=== PATIENT | female | born 1995 | race African-American/Black ===

== ENCOUNTER 2017-01-30 07:33 | Inpatient (IN) ==
[2017-01-30] MEDS ORDERED: SODIUM CHLORIDE 0.9% 1,000 ML IV STA ×2 (07:53→09:28)
--- NOTE | 2017-01-30 08:13 | Emergency Department Note ---
Kelsey Hayward Gwan, am scribing for, and in the presence of, Armaan Santiago MD 08:02 . Pamela Hayward James D, MD, personally performed the services described in this documentation, ascribed by Suri Cole in my presence, and it is both accurate and complete 805 . Arrival - Arrival Stated Complaint: n/v - diabetic Mode of Arrival: Ambulatory Limitations: No Limitations Source: Patient, Family (Mother ), Old Records Reviewed, RN Notes Reviewed - History of Present Illness HPI Narrative: Patient is a 21 y/o female who present to the ED with a c/o N/V with an onset 2030 yesterday. Patient has a PMHx of IDDM and previous DKA. She confirmed her DKA was when she was diagnosed and that her LNMP was last week. She is followed by Dr. Short and Dr. Cleaning at [facility] in [place]. She check her BS 3x a day and her most recent reading was 140. She then noted that she has not been compliant with her DM dietary plan. Patient denies any dysuria. Consistency: constant Severity: moderate Allergies/Adverse Reactions: Allergies Allergy/AdvReac Type Severity Reaction Status Date / Time Shellfish Allergy Swelling Verified 10/01/15 15:11 of Lip/Tongue/Throat pinapple Allergy Swelling Uncoded 10/01/15 15:11 of Lip/Tongue/Throat Home Medications: Home Medications Medication Instructions Recorded Confirmed Type Insulin Aspart [NovoLOG] 0 unit SUBCUT .PUMP 01/30/17 01/30/17 History Review of System - Review of System 12 point system: reviewed and no additional remarkable complaints except as stated - Review of System Constitutional: Absent: chills, fever Eyes: Absent: discharge, pain Head/Ears/Nose/Throat: Absent: earache Respiratory: Absent: cough Cardiovascular: Absent: chest pain Gastrointestinal: Present: as per HPI, nausea Genitourinary female: Absent: dysuria Musculoskeletal: Absent: arm pain, back pain, lower back pain, leg pain Skin: Absent: rash, lesions Medical,Surgical,& Family Hx - Medical History Neurology: History of: Seizures (HX AT AGE 7 YEARS MEVER PUT ON MEDS) Endocrine: History of: Diabetes Mellitus (IDDM), Endocrine Problems (previous DKA) Comment Only: Thyroid Disorder (PARATHYROID) Reproductive: Comment Only: Reproductive Problems (LMP 12/2015) - Family History Family History: Reports;: Family Cancer (UNCLES), Family Diabetes (DAD), Family Heart Disease (GRANDMOTHER), Family Hypertension (MOM) - Social History Smoking Status: Never smoker Exam Physical Examination: GENERAL: This is a lethargic black female in no apparent distress. VITAL SIGNS: HEENT: Head is normocephalic and atraumatic. Pupils are equally round and reactive to light. Extraocular movement are intact. Oropharynx is benign with dry mucous membranes. NECK: Neck is soft and supple without tenderness. There are no masses. There is no lymphadenopathy. LUNGS: Lungs are clear to auscultation bilaterally. Chest rises symmetrically. There is no chest wall tenderness. CV: Heart is rapid heart rate and rhythm without murmurs, rubs, or gallops. ABDOMEN: Abdomen is soft, non-tender to palpation. There are no abnormal masses palpated. There is no organomegaly. Bowel sounds are present and active. SKIN: Skin is warm and dry. No rash. EXTREMITIES: Patient has full range of motion without tenderness. There is no pedal edema. NEUROLOGIC: Awake, alert, and oriented x4. Cranial nerves II through XII are grossly intact. There are no motorsensory deficits. PSYCHIATRIC: Normal affect. Normal mood. Vital Signs: Vital Signs Temperature 98.2 F 01/30/17 07:58 Pulse Rate 116 H 01/30/17 09:43 Respiratory Rate 31 H 01/30/17 09:43 Blood Pressure 135/80 01/30/17 09:43 O2 Sat by Pulse Oximetry 100 01/30/17 09:43 Results - Labs CBC & BMP: 01/30/17 07:55 01/30/17 07:55 Lab Results: I have reviewed the patients labs Labs: Laboratory Tests 01/30/17 07:55 WBC 23.8 H RBC 5.57 H Hgb 15.4 Hct 49.6 H MCHC 31.0 L Plt Count 446 H Neut % (Auto) 80.4 H Lymph % (Auto) 11.2 L Neut # (Auto) 19.2 H b-Hydroxybutyric mmol/L 5.3 H Laboratory Tests 01/30/17 01/30/17 07:55 08:18 ABG pH 7.021 L* D ABG pCO2 8.1 L* ABG pO2 127.0 H ABG HCO3 5.8 L ABG Total CO2 2.0 L ABG O2 Saturation 97.3 ABG Base Excess -29.8 L b-Hydroxybutyric mmol/L 5.3 H - Diagnostic Findings Procedure: Chest x-ray: image reviewed by me (No infiltrates, no pleural effusions.) Disposition Clinical Impression: Type 1 diabetes mellitus with recurrent ketoacidosis Case discussed with: patient Disposition: Still a Patient Condition: Stable Time of Disposition: 08:05
[2017-01-30] MEDS ORDERED: ONDANSETRON 4 MG/2 ML VIAL IV STA (08:16)
[2017-01-30] MEDS ORDERED: ONDANSETRON 4 MG/2 ML VIAL ONE (08:18)
[2017-01-30 08:26] LABS: Basophils # 0.2 10*3/uL (0.0-0.2); Basophils % 0.6 % (0.0-0.8); Hematocrit 49.6 VOL% (35.7-47.0); Hemoglobin 15.4 GM/DL (12.0-16.0); Immature Granulocytes % 4.3 %; Immature Granulocytes Absolute 1.02 #; Lymphocytes # 2.7 10*3/uL (1.4-4.0); Lymphocytes % 11.2 % (21.3-54.2); Mean Corpuscular Hemoglobin 28 PG (27-34); Mean Platelet Volume 11.1 FL (9.6-12.0); Monocytes # 0.8 10*3/uL (0.11-0.8); Monocytes % 3.5 % (1.7-12.7); Neutrophils # 19.2 10*3/uL (1.4-7.4); Neutrophils % 80.4 % (38.7-73.9); Platelet Count 446 T/CUMM (130-400); Red Blood Count 5.57 MC/CUMM (3.8-5.5); Red Cell Distribution Width 13.4 % (9.3-17.3); White Blood Count 23.8 T/CUMM (4-12)
[2017-01-30 08:47] LABS: Hypochromasia 1+; Lymphocytes 14 % (20-55); Metamyelocytes 2 %; Platelet Estimate Increased; Segmented Neutrophils 81 % (50-85); Total Cells Counted 100
[2017-01-30 09:20] LABS: ABG Base Excess -29.8 MMOL/L (-2.5-2.5); ABG HCO3 5.8 MMOL/L (20-26); ABG Oxygen Saturation 97.3 % (95-100)
[2017-01-30 09:30] LABS: ABG PCO2 8.1 MM HG (35-48); ABG PH 7.021 (7.35-7.45)
--- NOTE | 2017-01-30 09:38 | EKG Report ---
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
--- NOTE | 2017-01-30 09:40 | XRay Report ---
Exam: XR chest 2V Date: 01/30/2017 9:08 AM Indication: Chest pain shortness of breath Comparison: 10/01/2015 Technical: PA lateral Findings: The heart, lungs, mediastinum and bony structures are intact. Impression: 1. No acute cardiopulmonary pathology. PROCEDURE INTERPRETED AT [facility] DEPARTMENT OF RADIOLOGY Final Report Signed by: Dr. Romeo Tinoco
[2017-01-30 09:49] LABS: Albumin 4.5 G/DL (3.4-5.0); Bilirubin,Total 0.4 MG/DL (0.2-1.0); Calcium 12.1 MG/DL (8.5-10.1); Magnesium 2.6 MG/DL (1.8-2.4); Osmolality,Calculated 293.1 MOS/KG (273-304); Total Protein 9.8 G/DL (6.4-8.3)
[2017-01-30 09:52] LABS: Potassium 6.4 MMOL/L (3.5-5.1)
[2017-01-30] MEDS ORDERED: MAGNESIUM SULF RIDER 2 GM in PREMIX 1 EACH IV PRN (10:00)
[2017-01-30] MEDS ORDERED: SODIUM BICARB INJ 100 MEQ in STERILE WATER INJ 400 ML IV PRN (10:00)
[2017-01-30] MEDS ORDERED: INSULIN REGULAR 100 UNIT/ML IV ONE (10:00)
[2017-01-30] MEDS ORDERED: MAGNESIUM SULF RIDER 4 GM in PREMIX 1 EACH IV PRN (10:00)
[2017-01-30] MEDS ORDERED: DEXTROSE 50% 25 GM/50 ML VIAL IV PRN ×2 (10:00)
[2017-01-30] MEDS ORDERED: SODIUM CHLORIDE 0.9% 1,000 ML IV ONE (10:00)
[2017-01-30] MEDS ORDERED: SODIUM PHOSPHATE INJ 13.3 MMOL in SODIUM CHLORIDE 0.9% 250 ML IV PRN (10:00)
[2017-01-30 10:02] LABS: Apearance,Urine Slightly Hazy (Clear); Bilirubin,Urine Negative (Negative); Blood, Urine Small mg/dL (Negative); Glucose,Urine (UA) >=500 mg/dL (Negative); Ketones,Urine 80 mg/dL (Negative); Nitrite,Urine Negative (Negative); Protein,Urine 30 MG/DL; RBC,Urine 1 /HPF (0-4); Squamous Epithelial Cell,Urine Occasional /HPF (0-10); Urine Color Straw (Yellow); Urine Specific Gravity 1.012 (1.001-1.035); Urine Urobilinogen < 2.0 EU/DL (0.2-1.0); WBC,Urine 3 /HPF (0-6)
[2017-01-30] MEDS ORDERED: SODIUM POLYSTYRENE SULFATE 15 GM/60 ML BOTTLE PO STA (10:03)
[2017-01-30] MEDS ORDERED: CALCIUM GLUCONATE 2,000 MG in SODIUM CHLORIDE 0.9% 100 ML IV ONE (10:03)
--- NOTE | 2017-01-30 10:47 | Hospitalist History & Physical ---
Assessment and Plan - Time spent with patient Time spent with patient: Greater than 30 minutes (1) Type 1 diabetes mellitus with recurrent ketoacidosis Status: Acute Assessment and plan: This is recurrent ketoacidosis. Patient's pH is 7.021, glucose 504, b- hydroxybutyric level 5.4. She has been admitted to the ICU for further evaluation and treatment. She is given 2 L of fluid in the ER. We will give her 8 units of insulin bolus. 2 more liters of normal saline and start insulin drip. We will continue to monitor the patient Current Visit: Yes (2) Hyperkalemia Status: Acute Assessment and plan: Potassium 6.4 on admission. In addition to insulin, give IV calcium gluconate 2 g and Kayexalate 30 mg. Recheck BMP Current Visit: Yes History of Present Illness Chief complaint: DKA History of present illness: Ms. Otero is a 21 year old female with history of IDDM and a previous episode of DKA presents to the ED with symptomatic diabetic ketoacidosis with onset of 2030 last night. The patient is followed by endocrinology in [facility]. She she knows that she was diagnosed with type 1 diabetes and 13 years old. She does have an insulin pump and monitors her blood sugar levels 3 times a day. Patient stated that her last known blood sugar was 140, which is low for her. Last night, she notes that she was extremely nauseated, vomiting and had diarrhea. She and her mother believed that the symptoms may be related to something she had eaten as the patient admits that she has not been compliant with her diabetic diet. Her mother gave her some Sprite to drink thinking that it would settle her stomach. This morning, the patient continued to have emesis. It was at that time that her mother decided to bring her to the emergency room. On exam, the patient was tachycardic, tachypneic, nauseous , cold and only complained of chest pain. She was given IV Zofran and 2 L of normal saline in the ER. Chest x-ray was unremarkable. EKG shows sinus tach with short UT interval. Preliminary lab work reveals white count of 23.8, pH 7.021, PCO2 8.1, PLT 127.0, HCO3 5.8, sodium 135, potassium 6.4, glucose 504, urine ketones 80. The patient will be admitted to ICU for further evaluation and treatment. She is a full code. Case has been discussed with Dr. Raymond. Home Medications Medication Instructions Recorded Confirmed Type Insulin Aspart [NovoLOG] 0 unit SUBCUT .PUMP 01/30/17 01/30/17 History Allergies Allergy/AdvReac Type Severity Reaction Status Date / Time Shellfish Allergy Swelling Verified 10/01/15 15:11 of Lip/Tongue/Throat pinapple Allergy Swelling Uncoded 10/01/15 15:11 of Lip/Tongue/Throat Medical,Surgical,& Family Hx - Medical History Neurology: History of: Seizures (HX AT AGE 7 YEARS MEVER PUT ON MEDS) Endocrine: History of: Diabetes Mellitus (IDDM), Endocrine Problems (previous DKA) Comment Only: Thyroid Disorder (PARATHYROID) Reproductive: Comment Only: Reproductive Problems (LMP 12/2015) - Family History Family History: Reports;: Family Cancer (UNCLES), Family Diabetes (DAD), Family Heart Disease (GRANDMOTHER), Family Hypertension (MOM) - Social History Smoking Status: Never smoker Frequency of Alcohol Use: None Type of Drug Use: None Marital Status: Single Lives With:: Parent Functional capacity: independent ambulation - Constitutional Constitutional: Present: chills, fatigue, weakness. Absent: fever(s) - EENT Eyes: Absent: blurry vision, loss of vision Ears: Absent: decreased hearing, ear pain Nose, mouth and throat: Absent: headache(s), neck pain, sore throat - Cardiovascular Cardiovascular: Present: chest pain at rest. Absent: dyspnea, edema, lightheadedness - Respiratory Respiratory: Present: other (Tachypnea). Absent: cough, wheezing - Gastrointestinal Gastrointestinal: Present: diarrhea, nausea, vomiting. Absent: abdominal pain - Genitourinary Genitourinary: Absent: difficulty urinating, dysuria, flank pain - Musculoskeletal Musculoskeletal: Absent: back pain, myalgias - Psychiatric Psychiatric: Absent: anxiety, depression - Endocrine Endocrine: Present: cold intolerance, fatigue - Hematologic/Lymphatic Hematologic/Lymphatic: Absent: easy bleeding, easy bruising Exam - Constitutional Vitals: Period Temp Pulse Resp BP Sys/Salcido Pulse Ox Last 24 Hr 98.2 F-98.2 F 110-124 15-31 126-144/73-102 98-100 Exam: General appearance: normal weight, moderate distress - Head Head exam: Present: normocephalic, atraumatic - Eye Eye exam: Present: EOMI. Absent: conjunctival injection, nystagmus Pupils: Present: SHANNON, normal accommodation - ENT ENT exam: Present: normal exam, normal external ear exam - Neck Neck exam: Present: normal inspection. Absent: lymphadenopathy, tenderness, thyromegaly - Respiratory Respiratory exam: Present: clear to auscultation bilaterally. Absent: rales, rhonchi, wheezes - Cardiovascular Cardiovascular exam: Present: Tachycardia. Absent: carotid bruit, gallop, rubs - GI/Abdominal GI/Abdominal exam: Present: normal bowel sounds. Absent: ascites, distended, mass - Extremities Exam Extremities exam: Present: normal inspection, normal capillary refill. Absent: edema - Back Exam Back exam: Absent: CVA tenderness (L), CVA tenderness (R) - Neurological Exam Neurological exam: Present: alert, oriented X3 - Psychiatric Psychiatric exam: Present: normal affect, normal mood - Skin Skin exam: Present: normal color, cool, dry Results - Labs CBC & BMP: 01/30/17 07:55 01/30/17 07:55
[2017-01-30] MEDS: SODIUM CHLORIDE 0.9% 1,000 ML IV SCH ×2 (10:49→12:39)
[2017-01-30] MEDS: INSULIN REGULAR DRIP 100 ML IV SCH (10:50)
[2017-01-30 11:48] LABS: Magnesium 2.2 MG/DL (1.8-2.4); Phosphorous 3.8 MG/DL (2.5-4.9)
[2017-01-30 11:49] LABS: Calcium 10.3 MG/DL (8.5-10.1); Osmolality,Calculated 296.4 MOS/KG (273-304); Potassium 5.4 MMOL/L (3.5-5.1)
[2017-01-30 14:06] LABS: ABG Base Excess -29.8 MMOL/L (-2.5-2.5); ABG HCO3 5.6 MMOL/L (20-26); ABG Oxygen Saturation 98.6 % (95-100); ABG TCO2 1.9 MMOL/L (23-27)
[2017-01-30 14:08] LABS: ABG PCO2 7.9 MM HG (35-48); ABG PH 7.012 (7.35-7.45)
[2017-01-30 14:39] LABS: Calcium 10.9 MG/DL (8.5-10.1); Osmolality,Calculated 292.1 MOS/KG (273-304); Potassium 5.7 MMOL/L (3.5-5.1)
[2017-01-30] MEDS ORDERED: SODIUM CHLORIDE 0.9% 1,000 ML IV SCH (15:00)
[2017-01-30] MEDS: DEXTROSE 5% NACL 0.45% 1,000 ML IV SCH ×2 (16:35→20:52)
[2017-01-30] MEDS ORDERED: MORPHINE 2 MG/1 ML SYRINGE IV PRN (17:43)
[2017-01-30 18:42] LABS: Calcium 9.9 MG/DL (8.5-10.1); Osmolality,Calculated 286.3 MOS/KG (273-304)
[2017-01-30] MEDS: FLUCONAZOLE 200 MG TABLET PO SCH (20:59)
[2017-01-30] MEDS: NYSTATIN/TRIAMCINOLONE CREAM 15 GM TUBE TOP SCH (20:59)
[2017-01-30 22:51] LABS: Calcium 9.8 MG/DL (8.5-10.1); Osmolality,Calculated 284.3 MOS/KG (273-304); Potassium 3.6 MMOL/L (3.5-5.1)
[2017-01-31] MEDS: DEXTROSE 5% NACL 0.45% 1,000 ML IV SCH ×3 (01:01→08:17)
[2017-01-31] MEDS ORDERED: SODIUM CHLORIDE 0.45% 1,000 ML IV SCH (03:00)
[2017-01-31 04:57] LABS: Basophils % 0.2 % (0.0-0.8); Hematocrit 33.4 VOL% (35.7-47.0); Hemoglobin 10.8 GM/DL (12.0-16.0); Immature Granulocytes % 1.3 %; Immature Granulocytes Absolute 0.19 #; Lymphocytes # 2.5 10*3/uL (1.4-4.0); Lymphocytes % 17.5 % (21.3-54.2); Mean Corpuscular HGB Conc 32.3 GM/DL (32-36); Mean Corpuscular Hemoglobin 27 PG (27-34); Mean Corpuscular Volume 84.6 FL (87-102); Mean Platelet Volume 10.5 FL (9.6-12.0); Monocytes # 1.4 10*3/uL (0.11-0.8); Monocytes % 9.7 % (1.7-12.7); Neutrophils # 10.1 10*3/uL (1.4-7.4); Neutrophils % 71.3 % (38.7-73.9); Platelet Count 360 T/CUMM (130-400); Red Blood Count 3.95 MC/CUMM (3.8-5.5); Red Cell Distribution Width 13.4 % (9.3-17.3); White Blood Count 14.2 T/CUMM (4-12)
[2017-01-31 05:29] LABS: Calcium 9.8 MG/DL (8.5-10.1); Osmolality,Calculated 279.1 MOS/KG (273-304); Potassium 3.4 MMOL/L (3.5-5.1)
[2017-01-31 05:31] LABS: Magnesium 1.5 MG/DL (1.8-2.4); Phosphorous 1.4 MG/DL (2.5-4.9)
[2017-01-31 08:29] LABS: Calcium 10.5 MG/DL (8.5-10.1); Osmolality,Calculated 278.5 MOS/KG (273-304); Potassium 2.9 MMOL/L (3.5-5.1)
[2017-01-31] MEDS: FLUCONAZOLE 200 MG TABLET PO SCH (08:48)
[2017-01-31] MEDS: POTASSIUM CHLORIDE RIDER 10 MEQ in PREMIX 1 EACH IV PRN ×2 (08:49→10:27)
[2017-01-31] MEDS: NYSTATIN/TRIAMCINOLONE CREAM 15 GM TUBE TOP SCH ×2 (08:51→22:18)
[2017-01-31 08:56] LABS: Amorphous Crystals,Urine Occasional /HPF (Few); Apearance,Urine CLOUDY (Clear); Bacteria,Urine Many /HPF (Few); Bilirubin,Urine Negative (Negative); Blood, Urine Moderate mg/dL (Negative); Glucose,Urine (UA) 150 mg/dL (Negative); Ketones,Urine 20 mg/dL (Negative); Mucus,Urine Occasional /LPF (Occasional); Nitrite,Urine Positive (Negative); Protein,Urine Negative; Urine Color Yellow (Yellow); Urine Specific Gravity 1.003 (1.001-1.035); Urine Urobilinogen < 2.0 EU/DL (0.2-1.0); WBC,Urine 15 /HPF (0-6)
--- NOTE | 2017-01-31 10:11 | Hospitalist Progress Note ---
Assessment and Plan (1) Type 1 diabetes mellitus with recurrent ketoacidosis Status: Acute Assessment and plan: Continue IV fluid infusion. Transitioned from IV insulin to subcu insulin and start oral intake. Current Visit: Yes (2) UTI (urinary tract infection) Status: Acute Assessment and plan: Start Cipro. Current Visit: Yes Qualifiers: Urinary tract infection type: acute cystitis Hematuria presence: without hematuria Qualified Code(s): N30.00 - Acute cystitis without hematuria (3) Vulvovaginitis Status: Acute Assessment and plan: Diflucan and nystatin started. Current Visit: Yes Hospitalist: Subjective Interval history: Patient seen and examined. No acute events overnight. Case discussed with nursing staff. Labs reviewed. Patient has significant improvement overnight with continued insulin drip infusion. Serum CO2 has increased and anion gap has closed. We will transition to subcutaneous insulin and start oral intake. The patient uses an insulin pump at home but does not have it with her and is unsure of its exact location. She reports her basal insulin dose of 3 U/h. This equates 24 units of subcutaneous NovoLog 3 times daily with meals. She also uses a sliding scale based on carbohydrate intake which will be continued during the course of this hospitalization and for discharge. I have advised the patient to have someone bring her insulin pump prior to discharge. Urinalysis shows infection and Cipro will be started. Exam - Constitutional Vitals: Period Temp Pulse Resp BP Sys/Salcido Pulse Ox Last 24 Hr 98.1 F-99.1 F 85-127 13-31 98-151/52-102 99-100 Results - Labs CBC & BMP: 01/31/17 03:29 01/31/17 07:45
[2017-01-31] MEDS ORDERED: POTASSIUM CHLORIDE 20 MEQ TABLET PO ONE (10:13)
[2017-01-31] MEDS: LACTATED RINGERS 1,000 ML IV SCH ×2 (10:26→19:51)
[2017-01-31] MEDS: INSULIN REGULAR DRIP 100 ML IV SCH (10:26)
[2017-01-31] MEDS: INSULIN ASPART PROTAMINE/ASPART 70/30 100 UNIT/ML SUBCUT SCH ×2 (11:36→18:45)
[2017-01-31] MEDS: INSULIN LISPRO 100 UNIT/ML SUBCUT SCH ×3 (11:36→21:24)
[2017-01-31] MEDS ORDERED: ONDANSETRON 4 MG/2 ML VIAL IV PRN (12:14)
[2017-01-31 13:44] LABS: Calcium 10.4 MG/DL (8.5-10.1); Osmolality,Calculated 285.7 MOS/KG (273-304); Potassium 3.6 MMOL/L (3.5-5.1)
[2017-01-31] MEDS: CIPROFLOXACIN 500 MG TABLET PO SCH ×2 (15:41→21:23)
[2017-02-01 05:48] LABS: Calcium 9.6 MG/DL (8.5-10.1); Magnesium 1.6 MG/DL (1.8-2.4); Osmolality,Calculated 292.7 MOS/KG (273-304); Potassium 3.3 MMOL/L (3.5-5.1)
[2017-02-01] MEDS: LACTATED RINGERS 1,000 ML IV SCH ×2 (07:11→17:10)
[2017-02-01] MEDS: FLUCONAZOLE 200 MG TABLET PO SCH (10:08)
[2017-02-01] MEDS: CIPROFLOXACIN 500 MG TABLET PO SCH ×2 (10:08→20:38)
[2017-02-01] MEDS: NYSTATIN/TRIAMCINOLONE CREAM 15 GM TUBE TOP SCH ×2 (10:09→20:39)
[2017-02-01] MEDS: INSULIN LISPRO 100 UNIT/ML SUBCUT SCH ×4 (10:14→20:38)
[2017-02-01] MEDS: INSULIN ASPART PROTAMINE/ASPART 70/30 100 UNIT/ML SUBCUT SCH ×3 (10:14→17:06)
--- NOTE | 2017-02-01 15:57 | Hospitalist Progress Note ---
Assessment and Plan - Time spent with patient Time spent with patient: Greater than 30 minutes (1) Type 1 diabetes mellitus with recurrent ketoacidosis Status: Acute Assessment and plan: Continue current management and electrolyte repletion. Current Visit: Yes (2) UTI (urinary tract infection) Status: Acute Assessment and plan: Continue antibiotics. Current Visit: Yes Qualifiers: Urinary tract infection type: acute cystitis Hematuria presence: without hematuria Qualified Code(s): N30.00 - Acute cystitis without hematuria (3) Vulvovaginitis Status: Acute Assessment and plan: Continue fluconazole. Current Visit: Yes Hospitalist: Subjective Interval history: No overnight events. Exam - Constitutional Vitals: Period Temp Pulse Resp BP Sys/Salcido Pulse Ox Last 24 Hr 97.7 F-99.5 F 83-106 10-24 109-130/68-94 97-100 General appearance: no acute distress - Head Head exam: Present: normocephalic, atraumatic - Eye Eye exam: Present: EOMI Pupils: Present: SHANNON - ENT ENT exam: Present: normal exam - Neck Neck exam: Present: normal inspection - Respiratory Respiratory exam: Present: clear to auscultation bilaterally. Absent: rhonchi, wheezes - Cardiovascular Cardiovascular exam: Present: regular rate and rhythm. Absent: gallop, rubs, systolic murmur - GI/Abdominal GI/Abdominal exam: Present: normal bowel sounds, soft. Absent: distended, firm , guarding, tenderness, rebound - Extremities Exam Extremities exam: Present: normal inspection. Absent: calf tenderness, edema Results - Labs CBC & BMP: 01/31/17 03:29 02/01/17 04:57 Lab Results: I have reviewed the past 24 hour labs
[2017-02-02] MEDS: POTASSIUM CHLORIDE 20 MEQ TABLET PO PRN ×3 (02:47→07:05)
[2017-02-02] MEDS: LACTATED RINGERS 1,000 ML IV SCH ×2 (03:10→16:22)
[2017-02-02 06:03] LABS: Basophils % 0.3 % (0.0-0.8); Eosinophils % 0.4 % (0.00-10.9); Hematocrit 30.1 VOL% (35.7-47.0); Hemoglobin 10.3 GM/DL (12.0-16.0); Immature Granulocytes % 0.3 %; Immature Granulocytes Absolute 0.02 #; Lymphocytes # 3.2 10*3/uL (1.4-4.0); Mean Corpuscular HGB Conc 34.2 GM/DL (32-36); Mean Corpuscular Hemoglobin 28 PG (27-34); Mean Corpuscular Volume 80.9 FL (87-102); Mean Platelet Volume 10.1 FL (9.6-12.0); Monocytes # 0.7 10*3/uL (0.11-0.8); Monocytes % 8.6 % (1.7-12.7); Neutrophils # 3.6 10*3/uL (1.4-7.4); Neutrophils % 48.4 % (38.7-73.9); Platelet Count 310 T/CUMM (130-400); Red Blood Count 3.72 MC/CUMM (3.8-5.5); Red Cell Distribution Width 13.2 % (9.3-17.3); White Blood Count 7.5 T/CUMM (4-12)
[2017-02-02 06:28] LABS: Calcium 9.8 MG/DL (8.5-10.1); Osmolality,Calculated 281.8 MOS/KG (273-304); Potassium 2.8 MMOL/L (3.5-5.1)
[2017-02-02] MEDS: INSULIN LISPRO 100 UNIT/ML SUBCUT SCH ×2 (08:28→12:36)
[2017-02-02] MEDS: INSULIN ASPART PROTAMINE/ASPART 70/30 100 UNIT/ML SUBCUT SCH ×2 (09:02→12:36)
[2017-02-02] MEDS: CIPROFLOXACIN 500 MG TABLET PO SCH (09:04)
[2017-02-02] MEDS: FLUCONAZOLE 200 MG TABLET PO SCH (09:04)
[2017-02-02] MEDS: NYSTATIN/TRIAMCINOLONE CREAM 15 GM TUBE TOP SCH (09:05)
[2017-02-02] MEDS: POTASSIUM CHLORIDE RIDER 10 MEQ in PREMIX 1 EACH IV SCH ×5 (09:47→15:13)
[2017-02-02 13:57] VITALS: BP 138/98
--- NOTE | 2017-02-02 14:54 | Discharge Summary ---
Hospital Course - Hospital Course Hospital Course: Ms. Otero was admitted to the intensive care unit with diabetic ketoacidosis. She was placed in the DKA pathway with successful resolution of her acidosis and return to normal of her electrolytes. Patient remained stable and was eventually transferred to the floor. She was found to have a urinary tract infection and will be prescribed antibiotics at discharge. By discharge she had met maximum benefit of hospitalization. I spent 36 minutes coordinating this discharge. - Time spent with patient Time with patient DS: Greater than 30 minutes Diagnosis - Discharge Diagnosis (1) Type 1 diabetes mellitus with recurrent ketoacidosis Status: Acute (2) UTI (urinary tract infection) Status: Acute (3) Vulvovaginitis Status: Acute Discharge Plan - Discharge Data Disposition: Disch To Home/Self Care Condition at Discharge: Stable Discharge Diet: advance to your usual diet Activity: resume usual activities as tolerated Hygiene: no restrictions - Discharge Medications New cefUROXime axetil [Cefuroxime] 500 mg PO BID #14 tablet Continue Insulin Aspart [NovoLOG] 0 unit SUBCUT .PUMP #2 cartridge - Follow Up or Referral - Forms/Instructions Exam - Constitutional Vitals: Period Temp Pulse Resp BP Sys/Salcido Pulse Ox Last 24 Hr 97.5 F-98.3 F 84-105 18-20 111-138/69-98 91-100 General appearance: normal weight, no acute distress - Head Head exam: Present: normal inspection - Eye Eye exam: Present: EOMI Pupils: Present: SHANNON - ENT ENT exam: Present: normal exam - Neck Neck exam: Present: normal inspection - Respiratory Respiratory exam: Present: clear to auscultation bilaterally. Absent: accessory muscle use, prolonged expiratory phase, wheezes - Cardiovascular Cardiovascular exam: Present: regular rate and rhythm. Absent: bradycardia, irregular rhythm, systolic murmur - GI/Abdominal GI/Abdominal exam: Present: normal bowel sounds. Absent: ascites, hypoactive bowel sounds, tenderness - Extremities Exam Extremities exam: Present: normal inspection Discharge Results Procedures and tests throughout hospitalization: Pending Orders 01/30/17 11:08 Blood Culture Stat Labs on day of discharge: Labs from last 24 hours 02/02/17 02/02/17 02/02/17 11:33 07:24 05:47 WBC RBC Hgb Hct MCV MCH MCHC RDW Plt Count MPV Neut % (Auto) Lymph % (Auto) [place] % (Auto) Eos % (Auto) Baso % (Auto) Neut # (Auto) Lymph # (Auto) [place] # (Auto) Eos # (Auto) Baso # (Auto) Immature Gran % Nucleated RBC % Immature Gran # Nucleated RBCs # Sodium 144 Potassium 2.8 L Chloride 108 H Carbon Dioxide 32 Anion Gap 6.8 BUN 3 L Creatinine 0.30 L GFR Calculation 170 BUN/Creatinine Ratio 10.00 Glucose 84 POC Glucose 189 H 85 Calculated Osmolality 281.8 Calcium 9.8 02/02/17 02/01/17 02/01/17 05:47 19:50 16:28 WBC 7.5 D RBC 3.72 L Hgb 10.3 L Hct 30.1 L MCV 80.9 L MCH 28 MCHC 34.2 RDW 13.2 Plt Count 310 MPV 10.1 Neut % (Auto) 48.4 Lymph % (Auto) 42.0 [place] % (Auto) 8.6 Eos % (Auto) 0.4 Baso % (Auto) 0.3 Neut # (Auto) 3.6 Lymph # (Auto) 3.2 [place] # (Auto) 0.7 Eos # (Auto) 0.0 Baso # (Auto) 0.0 Immature Gran % 0.3 Nucleated RBC % 0.0 Immature Gran # 0.02 Nucleated RBCs # 0.00 Sodium Potassium Chloride Carbon Dioxide Anion Gap BUN Creatinine GFR Calculation BUN/Creatinine Ratio Glucose POC Glucose 214 H 104 Calculated Osmolality Calcium Preliminary micro results at discharge 01/30/17 11:08 Blood Culture - Preliminary Blood No growth at 3 days 01/30/17 11:08 Blood Culture - Preliminary Blood No growth at 3 days DS: Provider Date of admission: 01/30/17 09:58 Primary care physician: . No PCP Attending physician on admission: Boone Raymond MD Consults: 01/30/17 10:00 Consult to [facility], Educator [CONS] Routine Reason for Pit Recorder: Diabetes Education Initial Insulin Education Consult Comment: INSULIN EDUCATION 01/30/17 15:10 Consult to Pastoral Services [CONS] Routine Comment: Pastoral Screen: Request Manager New Product Visit Pastoral Screen Source of Request: Patient Name of Physician Requesting: Segundo Discharging clinician: Rachel Munoz MD Expected date of discharge: 02/02/17
== END 2017-02-02 16:35 | disposition home or self-care (01) | DRG 638 ==
LOC: N.ED 07:33 → SUATTDRO 09:58 → N.EDINP 09:58 → N.ICU 10:18 → N.2E 02-01 02:04
PROVIDERS: ADMIT Family Medicine; ATTEND Internal Medicine

== ENCOUNTER 2017-07-01 02:41 | Inpatient (IN) ==
--- NOTE | 2017-07-01 04:01 | Emergency Department Note ---
Arrival - Arrival Chief Complaint: Abscess Stated Complaint: knot in vaginal area/ ED Nursing Triage Note: C/O Abscess to labia. Onset a couple of days ago. Denies drainage. Denies fever at home. Pt reports that her blood sugar was elevated at 210 yesterday. Mode of Arrival: Ambulatory Time Seen by Provider: 07/01/17 03:51 - History of Present Illness HPI Narrative: This is a 21-year-old female of descent with a history of type 2 diabetes with previous episodes and admissions for diabetic ketoacidosis who was last seen in January 2017 with vulvovaginitis associated with DKA. The patient presents with pain and swelling of her right labia and on physical examination is erythematous tender and markedly enlarged to the size of a lemon. The heart rate is 122. Date of Last Menstrual Period: Jun 08 Allergies/Adverse Reactions: Allergies Allergy/AdvReac Type Severity Reaction Status Date / Time Shellfish Allergy Swelling Verified 10/01/15 15:11 of Lip/Tongue/Throat pinapple Allergy Swelling Uncoded 10/01/15 15:11 of Lip/Tongue/Throat Home Medications: Home Medications Medication Instructions Recorded Confirmed Type Insulin Aspart [NovoLOG] 0 unit SUBCUT .PUMP #2 cartridge 02/02/17 07/01/17 Rx Review of System - Review of System Constitutional: Present: fever. Absent: night sweats, weakness Eyes: Absent: redness, vision change Head/Ears/Nose/Throat: Absent: epistaxis, nasal drainage Respiratory: Absent: respiratory distress, wheezing Cardiovascular: Absent: dyspnea on exertion, orthopnea Gastrointestinal: Absent: nausea, vomiting Genitourinary female: Absent: dysuria, discharge Musculoskeletal: Absent: joint swelling, lower back pain Skin: Absent: rash, lesions Neurological: Absent: headache, weakness Psychiatric: Absent: anxiety, depression Endocrine: Absent: heat intolerance, polydipsia Hematological/Lymphatic: Absent: easy bleeding Allergic/Immunologic: Absent: urticaria, itchy eyes Medical,Surgical,& Family Hx - Medical History Neurology: History of: Seizures (HX AT AGE 7 YEARS MEVER PUT ON MEDS) Endocrine: History of: Diabetes Mellitus (IDDM), Endocrine Problems (previous DKA) Comment Only: Thyroid Disorder (PARATHYROID) Reproductive: Comment Only: Reproductive Problems (LMP 12/2015) - Family History Family History: Reports;: Family Cancer (UNCLES), Family Diabetes (DAD), Family Heart Disease (GRANDMOTHER), Family Hypertension (MOM) - Social History Smoking Status: Never smoker Frequency of Alcohol Use: None Type of Drug Use: None Exam Vital Signs: Vital Signs Temperature 99.2 F 07/01/17 02:58 Pulse Rate 118 H 07/01/17 02:58 Respiratory Rate 18 07/01/17 02:58 Blood Pressure 123/90 07/01/17 02:58 O2 Sat by Pulse Oximetry 100 07/01/17 02:58 - General General appearance: alert - Eye Eye exam: Present: PERRL, EOMI - ENT ENT exam: Present: normal exam, normal oropharynx - Neck Neck exam: Present: normal inspection, full ROM - Chest Chest inspection: Present: normal inspection - Respiratory Respiratory exam: Present: normal lung sounds bilaterally - Cardiovascular Cardiovascular exam: Present: tachycardia - Abdominal Exam Abdominal exam: Present: distention - External exam: Present: other (A large Bartholin cyst of the right labia majora is noted.) - Extremities Exam Extremities exam: Present: normal inspection, full ROM - Back Exam Back exam: Present: normal inspection, full ROM - Neurological Exam Neurological exam: Present: alert, oriented X3, CN II-XII intact - Psychiatric Psychiatric exam: Present: normal affect, normal mood - Skin Skin exam: Present: warm, dry Course Course Narrative: Procedure note: Using 1% lidocaine with epinephrine a 2 cm incision was made in the right labia majora on the mucosal surface revealing copious amounts of purulent material. Thereafter quarter inch packing was placed. The patient tolerated the procedure well. The patient's laboratory test appear to be compatible with borderline diabetic ketoacidosis. Therefore it seems reasonable patient should be admitted for IV fluids and insulin. The case was discussed with the hospitalist who agreed to admit the patient. Results - Labs CBC & BMP: 07/01/17 03:57 07/01/17 03:57 Disposition Clinical Impression: Diabetic ketoacidosis, Infected cyst of Bartholin's gland duct Disposition: Still a Patient Additional Instructions: The case was discussed with the hospitalist who agreed to admit the patient for early diabetic ketoacidosis
[2017-07-01] MEDS ORDERED: SODIUM CHLORIDE 0.9% 1,000 ML IV STA ×2 (04:02→04:54)
[2017-07-01 04:31] LABS: VBG HCO3 11.5 MEQ/L (24-28); VBG Oxygen Saturation 96.3 %; VBG PCO2 20.3 MMHG (41-51); VBG PH 7.228; VBG PO2 91.3 MMHG (17-40)
[2017-07-01 04:31] LABS: Basophils # 0.1 10*3/uL (0.0-0.2); Basophils % 0.6 % (0.0-0.8); Eosinophils % 0.1 % (0.00-10.9); Hematocrit 44.5 VOL% (35.7-47.0); Hemoglobin 14.3 GM/DL (12.0-16.0); Immature Granulocytes % 1.3 %; Immature Granulocytes Absolute 0.19 #; Lymphocytes # 2.9 10*3/uL (1.4-4.0); Lymphocytes % 20.4 % (21.3-54.2); Mean Corpuscular HGB Conc 32.1 GM/DL (32-36); Mean Corpuscular Hemoglobin 26 PG (27-34); Mean Corpuscular Volume 81.5 FL (87-102); Mean Platelet Volume 10.2 FL (9.6-12.0); Monocytes # 0.5 10*3/uL (0.11-0.8); Monocytes % 3.6 % (1.7-12.7); Neutrophils # 10.6 10*3/uL (1.4-7.4); Platelet Count 442 T/CUMM (130-400); Red Blood Count 5.46 MC/CUMM (3.8-5.5); Red Cell Distribution Width 16.1 % (9.3-17.3); White Blood Count 14.3 T/CUMM (4-12)
[2017-07-01 04:50] LABS: Alanine Aminotransferase 11 U/L (13-56); Albumin 3.6 G/DL (3.4-5.0); Alkaline Phosphatase 198 U/L (45-117); Aspartate Amino Transferase 7 U/L (0-37); Bilirubin,Total < 0.39 MG/DL (0.2-1.0); Blood Urea Nitrogen 9 MG/DL (7-18); Calcium 11.9 MG/DL (8.5-10.1); Glucose 344 MG/DL (74-106); Osmolality,Calculated 278.4 MOS/KG (273-304); Potassium 4.2 MMOL/L (3.5-5.1); Sodium 133 MMOL/L (136-145); Total Protein 8.7 G/DL (6.4-8.3)
[2017-07-01] MEDS ORDERED: CEFEPIME 2,000 MG in SODIUM CHLORIDE 0.9% 100 ML IV STA (05:13)
[2017-07-01] MEDS ORDERED: INSULIN REGULAR DRIP 100 ML IV ONE (05:28)
[2017-07-01] MEDS ORDERED: SODIUM PHOSPHATE INJ 13.6 MMOL in SODIUM CHLORIDE 0.9% 250 ML IV PRN (05:32)
[2017-07-01] MEDS ORDERED: DEXTROSE 50% 25 GM/50 ML SYRINGE IV PRN ×2 (05:32)
[2017-07-01] MEDS ORDERED: MAGNESIUM SULF RIDER 4 GM in PREMIX 1 EACH IV PRN (05:32)
[2017-07-01] MEDS ORDERED: MAGNESIUM SULF RIDER 2 GM in PREMIX 1 EACH IV PRN (05:32)
--- NOTE | 2017-07-01 06:02 | Hospitalist History & Physical ---
Assessment and Plan - Time spent with patient Time spent with patient: Greater than 30 minutes (1) Diabetic ketoacidosis Status: Acute Assessment and plan: DKA order set utilized Anion gap 24.2, CO2 9, pH 7.2, glucose 344 Titratable insulin infusion with Accu-Cheks q. one hours and BMP every 4 hours Aggressive IV hydration N.p.o. for now Diabetic education consultation Hgb A1c and urine pending Current Visit: Yes (2) Abscess of vagina Status: Acute Assessment and plan: Bactrim p.o. twice daily daily Tylenol as needed for fevers Blood and urine cultures pending Current Visit: Yes History of Present Illness Chief complaint: abscess; DKA History of present illness: Called to the ER for Ms. Otero who is a 21 year old female that presents to the ED tonight with complaints of a vaginal abscess. Abscess was lanced with market amount of purulent drainage and not cultured. Patient denies running any fevers over the past couple days but her temperature upon presentation was 99.2 orally. Heart rate was 122. Lab work revealed a white blood cell count of 14.3, pH is 7.2, serum CO2 is 9, anion gap is 24.2, and glucose is 344. Patient does have a history of type 1 diabetes that was diagnosed at age 12. Mother unsure of her last Hgb A1c. She is currently on an insulin pump but states she has not been wearing it for the past month. She has been using a NovoLog pen sliding scale insulin. Dr. Cleaning from [facility] has been taking care of her diabetes but she has not seen him in almost a year. Her last admission to the hospital for DKA was in January 2017 where she had a UTI. Patient received 2 L of normal saline in the ER and was started on insulin drip. Patient will be placed in the ICU. DKA order set utilized. Patient will receive an insulin drip with every hour Accu-Cheks and every 4 BMPs as well as IV hydration. Blood and urine cultures are pending. She will receive Bactrim twice daily for vaginal abscess. Home medications reviewed and healed. Patient is a full code. Mother is at patient's bedside. Updated her on patient status and upcoming events. Mother verbalized understanding. Home Medications Medication Instructions Recorded Confirmed Type Insulin Aspart [NovoLOG] 0 unit SUBCUT .PUMP #2 cartridge 02/02/17 07/01/17 Rx Allergies Allergy/AdvReac Type Severity Reaction Status Date / Time Shellfish Allergy Swelling Verified 10/01/15 15:11 of Lip/Tongue/Throat pinapple Allergy Swelling Uncoded 10/01/15 15:11 of Lip/Tongue/Throat Medical,Surgical,& Family Hx - Medical History Cardio: No history of: Cardiovascular Problems Psychological: No history of: Psychiatric Problems Neurology: History of: Seizures (febrile) Endocrine: History of: Diabetes Mellitus (IDDM), Thyroid Disorder (PARATHYROID adenoma that was removed), Endocrine Problems (previous DKA) Rheumatology: No history of;: Rheumatological Problems Respiratory: No history of: Respiratory Problems Renal: No history of: Renal Problems Genitourinary: No history of: Problems Gastrointestinal: No history of: GI Problems Musculoskeletal: No history of: Musculoskeletal Problems Reproductive: No history of: Reproductive Problems (LMP 12/2015) Other: No history of: Miscellaneous Medical Problems - Surgical History HEENT Surgeries: Surgical HX of: Thyroid Surgery (Parathyroid adenoma removal) - Family History Family History: Reports;: Family Cancer (UNCLES), Family Diabetes (DAD), Family Heart Disease (GRANDMOTHER), Family Hypertension (MOM) - Social History Smoking Status: Never smoker Frequency of Alcohol Use: None Type of Drug Use: None Marital Status: Single Lives With:: Parent Functional capacity: independent ambulation - Constitutional Constitutional: Absent: chills, fever(s), increased appetite, lethargy, weakness , weight gain, weight loss - EENT Eyes: Absent: blurry vision Ears: Absent: tinnitus Nose, mouth and throat: Absent: headache(s), hoarseness, sore throat - Cardiovascular Cardiovascular: Absent: chest pain at rest, chest pain with activity, dyspnea, dyspnea on exertion, edema, orthopnea, palpitations - Respiratory Respiratory: Absent: cough, dyspnea - Gastrointestinal Gastrointestinal: Absent: abdominal pain, change in bowel habits, cramping, diarrhea, dysphagia, hematemesis, nausea, vomiting - Genitourinary Genitourinary: Present: other (Right labia pain). Absent: abnormal vaginal bleeding, difficulty urinating, dysuria, flank pain, hematuria - Musculoskeletal Musculoskeletal: Absent: back pain - Neurological Neurological: Absent: confusion, convulsions, syncope - Psychiatric Psychiatric: Absent: anxiety - Endocrine Endocrine: Absent: cold intolerance, heat intolerance - Hematologic/Lymphatic Hematologic/Lymphatic: Absent: easy bleeding, easy bruising Exam - Constitutional Vitals: Period Temp Pulse Resp BP Sys/Salcido Pulse Ox Last 24 Hr 99.2 F-99.2 F 106-118 16-22 123-138/81-96 97-100 General appearance: normal weight, no acute distress - Head Head exam: Present: normal inspection, normocephalic - Eye Eye exam: Present: EOMI Pupils: Present: SHANNON - ENT ENT exam: Present: normal exam, normal external ear exam, normal oropharynx - Expanded ENT Exam Mouth exam: Present: moist Throat exam: Present: normal inspection - Neck Neck exam: Present: normal inspection - Respiratory Respiratory exam: Present: clear to auscultation bilaterally (Respirations even and unlabored. Symmetrical rise and fall of chest noted.) - Cardiovascular Cardiovascular exam: Present: regular rate and rhythm. Absent: diastolic murmur , systolic murmur - GI/Abdominal GI/Abdominal exam: Present: normal bowel sounds, soft. Absent: distended, firm , tenderness - Extremities Exam Extremities exam: Present: normal inspection, normal capillary refill, full ROM. Absent: edema - Back Exam Back exam: Present: normal inspection - Neurological Exam Neurological exam: Present: alert, oriented X3 (Answers questions appropriately. Makes good eye contact.) - Psychiatric Psychiatric exam: Present: flat affect - Skin Skin exam: Present: normal color, warm, dry, intact Results - Labs CBC & BMP: 07/01/17 03:57 07/01/17 03:57 Lab Results: I have reviewed the past 24 hour labs
[2017-07-01] MEDS: INSULIN REGULAR DRIP 100 ML IV SCH ×2 (06:40→08:24)
[2017-07-01 07:40] LABS: Calcium 11.9 MG/DL (8.5-10.1); Osmolality,Calculated 275.5 MOS/KG (273-304); Potassium 4.1 MMOL/L (3.5-5.1)
[2017-07-01 07:45] LABS: Phosphorous 1.9 MG/DL (2.5-4.9)
[2017-07-01] MEDS ORDERED: ACETAMINOPHEN 500 MG TABLET PO PRN (08:21)
[2017-07-01] MEDS: ENOXAPARIN 40 MG/0.4 ML SYRINGE SUBCUT SCH (08:31)
[2017-07-01] MEDS: SULFAMETHOX/TRIMETHOPRIM 400-80 MG TABLET PO SCH ×2 (08:32→20:51)
[2017-07-01] MEDS: PANTOPRAZOLE 40 MG VIAL IV SCH (08:32)
[2017-07-01 08:53] LABS: Apearance,Urine CLOUDY (Clear); Bacteria,Urine Occasional /HPF (Few); Bilirubin,Urine Negative (Negative); Blood, Urine Moderate mg/dL (Negative); Glucose,Urine (UA) >=500 mg/dL (Negative); Ketones,Urine 80 mg/dL (Negative); Mucus,Urine Occasional /LPF (Occasional); Nitrite,Urine Negative (Negative); Protein,Urine 30 MG/DL; RBC,Urine 8 /HPF (0-4); Squamous Epithelial Cell,Urine Occasional /HPF (0-10); Urine Color Yellow (Yellow); Urine Specific Gravity 1.023 (1.001-1.035); Urine Urobilinogen < 2.0 EU/DL (0.2-1.0); WBC,Urine 4 /HPF (0-6)
[2017-07-01] MEDS: DEXTROSE 5% NACL 0.45% 1,000 ML IV SCH ×4 (08:56→22:09)
[2017-07-01] MEDS ORDERED: SODIUM CHLORIDE 0.9% 1,000 ML IV SCH (10:33)
[2017-07-01 11:02] LABS: Calcium 9.9 MG/DL (8.5-10.1); Osmolality,Calculated 273.7 MOS/KG (273-304); Potassium 4.3 MMOL/L (3.5-5.1)
[2017-07-01] MEDS: DEXTROSE 5% NACL 0.9% 1,000 ML IV SCH ×6 (11:27→22:09)
[2017-07-01] MEDS ORDERED: DEXTROSE 50% 25 GM/50 ML VIAL IV ONE (15:04)
[2017-07-01] MEDS: FLUCONAZOLE 100 MG TABLET PO SCH (16:34)
[2017-07-01 18:20] LABS: Calcium 9.3 MG/DL (8.5-10.1); Osmolality,Calculated 275.5 MOS/KG (273-304); Potassium 3.9 MMOL/L (3.5-5.1)
[2017-07-02] MEDS: DEXTROSE 5% NACL 0.9% 1,000 ML IV SCH (00:45)
[2017-07-02 00:55] LABS: Calcium 9.9 MG/DL (8.5-10.1); Magnesium 1.6 MG/DL (1.8-2.4); Osmolality,Calculated 282.1 MOS/KG (273-304); Phosphorous 0.7 MG/DL (2.5-4.9); Potassium 3.3 MMOL/L (3.5-5.1)
[2017-07-02 01:14] LABS: Basophils # 0.1 10*3/uL (0.0-0.2); Basophils % 0.7 % (0.0-0.8); Eosinophils # 0.1 10*3/uL (0.0-0.87); Eosinophils % 1.2 % (0.00-10.9); Hematocrit 33.9 VOL% (35.7-47.0); Hemoglobin 11.4 GM/DL (12.0-16.0); Immature Granulocytes % 1.2 %; Lymphocytes # 3.4 10*3/uL (1.4-4.0); Lymphocytes % 38.9 % (21.3-54.2); Mean Corpuscular HGB Conc 33.6 GM/DL (32-36); Mean Corpuscular Hemoglobin 27 PG (27-34); Mean Corpuscular Volume 79.8 FL (87-102); Mean Platelet Volume 10.2 FL (9.6-12.0); Monocytes # 0.5 10*3/uL (0.11-0.8); Neutrophils # 4.5 10*3/uL (1.4-7.4); Platelet Count 385 T/CUMM (130-400); Red Blood Count 4.25 MC/CUMM (3.8-5.5); Red Cell Distribution Width 15.9 % (9.3-17.3); White Blood Count 8.7 T/CUMM (4-12)
[2017-07-02] MEDS: POTASSIUM CHLORIDE RIDER 10 MEQ in PREMIX 1 EACH IV PRN ×3 (01:48→04:23)
[2017-07-02] MEDS: INSULIN REGULAR DRIP 100 ML IV SCH ×3 (02:05→06:10)
[2017-07-02] MEDS: DEXTROSE 5% NACL 0.45% 1,000 ML IV SCH ×2 (02:08→04:47)
[2017-07-02] MEDS: ENOXAPARIN 40 MG/0.4 ML SYRINGE SUBCUT SCH (06:10)
[2017-07-02 08:18] LABS: Calcium 9.5 MG/DL (8.5-10.1); Magnesium 2.3 MG/DL (1.8-2.4); Osmolality,Calculated 282.1 MOS/KG (273-304); Potassium 4.1 MMOL/L (3.5-5.1)
[2017-07-02] MEDS: SULFAMETHOX/TRIMETHOPRIM 400-80 MG TABLET PO SCH ×2 (08:21→20:42)
[2017-07-02] MEDS: PANTOPRAZOLE 40 MG VIAL IV SCH (08:22)
[2017-07-02] MEDS: FLUCONAZOLE 100 MG TABLET PO SCH (08:22)
[2017-07-02] MEDS ORDERED: DEXTROSE 50% 25 GM/50 ML VIAL IV PRN (08:39)
[2017-07-02] MEDS ORDERED: GLUCAGON 1 MG VIAL IM PRN (08:39)
--- NOTE | 2017-07-02 08:44 | Hospitalist Progress Note ---
Assessment and Plan (1) Type 1 diabetes mellitus with recurrent ketoacidosis Status: Acute Assessment and plan: Transition from IV insulin and dextrose IVF to subcutaneous insulin. Consult diabetic education Start diabetic diet Carb counting with subcu insulin administration Current Visit: Yes (2) Vulvovaginitis Status: Acute Assessment and plan: Continue Diflucan Current Visit: Yes (3) Infected cyst of Bartholin's gland duct Status: Acute Assessment and plan: Continue Bactrim Current Visit: Yes Hospitalist: Subjective Interval history: Patient seen and examined. No acute events overnight. Case discussed with nursing staff. Labs reviewed. She feels ready to eat breakfast this morning. She is on carb counting sliding scale at home with NovoLog. Consult diabetic education and ordered subcutaneous insulin. We will transition from insulin drip and dextrose IV fluids once she has eaten Exam - Constitutional Vitals: Period Temp Pulse Resp BP Sys/Salcido Pulse Ox Last 24 Hr 97.8 F-98.9 F 9-99 15-24 96-117/58-87 100-100 Exam: Constitutional System: No distress. No tremulousness. Head: Normocephalic, atraumatic. Ears, Nose and Throat System: No pain or tenderness. No epistaxis or discharge Eyes System: Pupils equal, round, and reactive. Extraocular muscles intact. Neck: Supple, without adenopathy, No jugular venous distention. No thyromegaly, neck mass, or prior surgery apparent. Respiratory System: Chest clear to auscultation. Cardiovascular System: Heart with regular rate and rhythm. No murmur. GI System: Abdomen soft, nontender. Normo active bowel sounds present. Musculoskeletal System: limbs with no pedal edema. Full distal pulses. Normal capillary refill. Neurological System: No discernable sensory deficit. No aphasia Psychiatric System: Conversation is rational Right labial abscess status post incision and drainage with packing in place - Expanded ENT Exam Mouth exam: Present: moist Throat exam: Present: normal inspection Results - Labs CBC & BMP: 07/02/17 00:21 07/02/17 07:34 Lab Results: I have reviewed the past 24 hour labs
[2017-07-02] MEDS ORDERED: INSULIN GLARGINE 100 UNIT/ML SUBCUT SCH (09:30)
[2017-07-02] MEDS: INSULIN LISPRO 100 UNIT/ML SUBCUT SCH ×5 (11:25→20:42)
[2017-07-02] MEDS ORDERED: INSULIN ASPART PROTAMINE/ASPART 70/30 100 UNIT/ML SUBCUT SCH (11:30)
[2017-07-02] MEDS: SODIUM HYPOCHLORITE 0.25% IRRIG 473 ML BOTTLE TOP SCH (17:25)
[2017-07-03 06:48] LABS: Calcium 10.3 MG/DL (8.5-10.1); Magnesium 1.9 MG/DL (1.8-2.4); Osmolality,Calculated 290.4 MOS/KG (273-304); Potassium 3.9 MMOL/L (3.5-5.1)
[2017-07-03] MEDS ORDERED: INSULIN GLARGINE 100 UNIT/ML SUBCUT SCH (08:00)
[2017-07-03] MEDS: INSULIN LISPRO 100 UNIT/ML SUBCUT SCH ×5 (08:15→11:35)
[2017-07-03] MEDS: ENOXAPARIN 40 MG/0.4 ML SYRINGE SUBCUT SCH (08:16)
[2017-07-03] MEDS: FLUCONAZOLE 100 MG TABLET PO SCH (08:16)
[2017-07-03] MEDS: SULFAMETHOX/TRIMETHOPRIM 400-80 MG TABLET PO SCH (08:16)
[2017-07-03] MEDS: SODIUM HYPOCHLORITE 0.25% IRRIG 473 ML BOTTLE TOP SCH (09:49)
--- NOTE | 2017-07-03 10:03 | Discharge Summary ---
Hospital Course - Hospital Course Hospital Course: 21-year-old female admitted to the hospital with DKA. Patient has had previous admissions for diabetic ketoacidosis. She was previously on a using insulin pump but has not been doing so over the last several weeks. She started using an insulin pen and is unable to give me any meaningful doses of what medication she has been taking. She was previously on a carb counting system of 1 unit of insulin for every 5 carbohydrates consumed. Ultimately the patient has been grossly noncompliant with her medication therapy and has not seen her nail artist in [place] in over a year. She was admitted with DKA in the ICU approximately 5-6 months ago. She has been transitioned to subcutaneous insulin with Lantus 15 units subcutaneously daily and Humalog 6 units 3 times a day with meals. She is also given a sliding scale to follow for coverage of her elevated blood sugars. She was instructed to follow-up with her nail artist in [place] as soon as possible. During the course of the hospitalization she was also treated for vulvovaginitis and incision and drainage of a cyst/abscess on the right labia. She is being treated with Diflucan and Bactrim and received prescriptions at discharge. - Time spent with patient Time with patient DS: Greater than 30 minutes (Total discharge time for this patient, including [id number] time, clinical documentation, medication reconciliation, and discharge planning was 35 minutes.) Diagnosis - Discharge Diagnosis (1) IDDM (insulin dependent diabetes mellitus) Status: Chronic (2) Type 1 diabetes mellitus with recurrent ketoacidosis Status: Resolved (3) Vulvovaginitis Status: Acute (4) Infected cyst of Bartholin's gland duct Status: Acute Discharge Plan - Discharge Data Disposition: Disch To Home/Self Care Condition at Discharge: Stable Discharge Diet: diabetic diet Activity: resume usual activities as tolerated Hygiene: no restrictions Weight Bearing at Discharge: full weight bearing Driving: no restrictions Contact your physician if you experience:: fever over 101 - Discharge Medications New Insulin Degludec [Tresiba Flextouch U-100] 15 unit SQ DAILY #1 insuln.pen Insulin Lispro [HumaLOG] 6 unit SUBCUT TID W/MEALS #1 vial Insulin Lispro [HumaLOG] See Protocol SUBCUT ACHS #1 vial Sulfameth/Trimeth 400-80 Tab [Bactrim Tab] 1 tablet PO BID #10 tablet Fluconazole Tab [Diflucan Tab] 100 mg PO DAILY #7 tablet Sodium Hypochlorite 0.25% Irr [Dakins 1/2 Strength 0.25% Soln] 1 applic TOP DAILY applic Discontinued Insulin Aspart [NovoLOG] 0 unit SUBCUT .PUMP #2 cartridge - Follow Up or Referral - Forms/Instructions Additional Discharge Instructions: follow up with PCP in 1 week. Exam - Constitutional Vitals: Period Temp Pulse Resp BP Sys/Salcido Pulse Ox Last 24 Hr 96.8 F-98.2 F 75-95 16-20 96-118/58-87 97-100 Discharge Results Procedures and tests throughout hospitalization: Pending Orders 07/01/17 03:57 Blood Culture Stat 07/01/17 08:20 Urine Culture Routine Labs on day of discharge: Labs from last 24 hours 07/03/17 07/03/17 07/02/17 07:56 05:19 20:02 Sodium 140 Potassium 3.9 Chloride 109 H Carbon Dioxide 24 Anion Gap 10.9 BUN 10 Creatinine 0.40 L GFR Calculation 151 BUN/Creatinine Ratio 25.00 H Glucose 333 H POC Glucose 311 H 252 H Calculated Osmolality 290.4 Calcium 10.3 H Magnesium 1.9 07/02/17 07/02/17 17:19 11:11 Sodium Potassium Chloride Carbon Dioxide Anion Gap BUN Creatinine GFR Calculation BUN/Creatinine Ratio Glucose POC Glucose 277 H 206 H Calculated Osmolality Calcium Magnesium Preliminary micro results at discharge 07/01/17 08:20 Urine Culture - Preliminary Urine,Clean Catch Yeast 07/01/17 03:57 Blood Culture - Preliminary Blood No growth at 1 day 07/01/17 03:57 Blood Culture - Preliminary Blood No growth at 1 day DS: Provider Date of admission: 07/01/17 05:33 Primary care physician: . No PCP Attending physician on admission: Boone Raymond MD Consults: 07/01/17 05:33 Consult to Diabetes Center, Educator [CONS] Routine Reason for Victims Advocate Clerk/Specialist: Diabetes Education Initial Insulin Education Consult Comment: INSULIN EDUCATION 07/01/17 11:28 Consult to Diabetes Center, Educator [CONS] Routine Reason for Victims Advocate Clerk/Specialist: Diabetes Education Consult to Dietitian [CONS] Routine Reason for Dietitian: Dietary Consult 07/01/17 11:53 Consult to Physician [CONS] Routine Comment: Consulting Provider: Matthias Mason Consulting Provider Notified: Yes Consult to Specialist Group: OBGYN Person Notified: SANGITA Date Notified: 07/02/17 Time Notified: 14:50 07/02/17 08:37 Consult to Diabetes Center, Educator [CONS] Routine Reason for Victims Advocate Clerk/Specialist: Diabetes Education Restart Insulin Pump Consult Comment: carb counting and insulin administration 07/02/17 14:28 Consult to Wound Care - [place] [CONS] Routine Reason for Wound Care: Wound Care Management Consult Comment: Has Labial abscess that was drained and packed in ER Discharging clinician: Boone Raymond MD Expected date of discharge: 07/03/17
[2017-07-03 11:14] VITALS: BP 113/69
[2017-07-03] MEDS ORDERED: INFLUENZA VIRUS VACCINE 0.5 ML SYRINGE IM ONE (14:00)
== END 2017-07-03 14:54 | disposition home or self-care (01) | DRG 988 ==
LOC: N.ED 02:41 → N.EDINP 02:41 → OBSVTOIN 05:33 → N.EDINP 07:50 → N.CC 08:17 → N.4E 07-02 19:46
PROVIDERS: ADMIT Family Medicine; ATTEND Family Medicine

== ENCOUNTER 2018-06-19 08:44 | Inpatient (IN) ==
[2018-06-19] MEDS ORDERED: KETOROLAC 30 MG/1 ML VIAL IV STA (09:00)
[2018-06-19] MEDS ORDERED: SODIUM CHLORIDE 0.9% 1,000 ML IV STA ×2 (09:00→10:31)
[2018-06-19] MEDS ORDERED: VANCOMYCIN INJ 1,000 MG in SODIUM CHLORIDE 0.9% 250 ML IV STA (09:00)
[2018-06-19 09:39] LABS: Basophils # 0.1 10*3/uL (0.0-0.2); Basophils % 0.4 % (0.0-0.8); Eosinophils # 0.1 10*3/uL (0.0-0.87); Eosinophils % 0.5 % (0.00-10.9); Hemoglobin 12.5 GM/DL (12.0-16.0); Immature Granulocytes % 0.8 %; Immature Granulocytes Absolute 0.11 #; Lymphocytes # 3.1 10*3/uL (1.4-4.0); Lymphocytes % 21.7 % (21.3-54.2); Mean Corpuscular HGB Conc 32.1 GM/DL (32-36); Mean Corpuscular Hemoglobin 28 PG (27-34); Mean Corpuscular Volume 87.6 FL (87-102); Mean Platelet Volume 10.6 FL (9.6-12.0); Monocytes % 7.3 % (1.7-12.7); Neutrophils # 9.8 10*3/uL (1.4-7.4); Neutrophils % 69.3 % (38.7-73.9); Platelet Count 395 T/CUMM (130-400); Red Blood Count 4.45 MC/CUMM (3.8-5.5); White Blood Count 14.1 T/CUMM (4-12)
[2018-06-19 10:13] LABS: Alanine Aminotransferase 12 U/L (13-56); Alkaline Phosphatase 209 U/L (45-117); Aspartate Amino Transferase 3 U/L (0-37); Bilirubin,Total < 0.39 MG/DL (0.2-1.0); Blood Urea Nitrogen 10 MG/DL (7-18); Osmolality,Calculated 279.9 MOS/KG (273-304); Potassium 4.5 MMOL/L (3.5-5.1); Sodium 129 MMOL/L (136-145); Total Protein 8.9 G/DL (6.4-8.3)
[2018-06-19 10:19] LABS: Apearance,Urine Slightly Hazy (Clear); Bacteria,Urine Many /HPF (Few); Bilirubin,Urine Negative (Negative); Blood, Urine Small mg/dL (Negative); Glucose,Urine (UA) >=500 mg/dL (Negative); Ketones,Urine 80 mg/dL (Negative); Nitrite,Urine Positive (Negative); Protein,Urine 30 MG/DL; RBC,Urine 5 /HPF (0-4); Squamous Epithelial Cell,Urine Occasional /HPF (0-10); Urine Color Straw (Yellow); Urine Specific Gravity 1.017 (1.001-1.035); Urine Urobilinogen < 2.0 EU/DL (0.2-1.0); WBC,Urine 36 /HPF (0-6)
[2018-06-19 10:22] LABS: Glucose 507 MG/DL (74-106)
[2018-06-19] MEDS ORDERED: INSULIN REGULAR 100 UNIT/ML IV STA (10:31)
[2018-06-19] MEDS ORDERED: DEXTROSE 50% 25 GM/50 ML VIAL IV PRN ×2 (12:00)
[2018-06-19] MEDS ORDERED: MAGNESIUM SULF RIDER 2 GM in PREMIX 1 EACH IV PRN (12:00)
[2018-06-19] MEDS ORDERED: POTASSIUM CHLORIDE RIDER 10 MEQ in PREMIX 1 EACH IV PRN (12:00)
[2018-06-19] MEDS ORDERED: MAGNESIUM SULF RIDER 4 GM in PREMIX 1 EACH IV PRN (12:00)
[2018-06-19] MEDS ORDERED: PROPOFOL 200 MG/20 ML VIAL IV ONE (14:03)
[2018-06-19] MEDS ORDERED: KETOROLAC 30 MG/1 ML VIAL ONE (14:03)
[2018-06-19] MEDS ORDERED: ONDANSETRON 4 MG/2 ML VIAL ONE (14:03)
[2018-06-19] MEDS ORDERED: SEVOFLURANE 1 UNIT/15 MINUTE INH ONE (14:03)
[2018-06-19] MEDS ORDERED: fentaNYL 100 MCG/2 ML VIAL ONE (14:03)
[2018-06-19] MEDS ORDERED: MIDAZOLAM 2 MG/2 ML VIAL ONE (14:03)
[2018-06-19] MEDS ORDERED: ACETAMINOPHEN 325 MG TABLET PO PRN (14:04)
[2018-06-19] MEDS ORDERED: PHENYLEPHRINE 1 MG/10 ML SYRINGE IV ONE (14:04)
[2018-06-19] MEDS ORDERED: ONDANSETRON 4 MG/2 ML VIAL IV PRN (14:04)
[2018-06-19] MEDS ORDERED: GLUCAGON 1 MG VIAL IM PRN (15:35)
[2018-06-19 15:56] LABS: Calcium 9.3 MG/DL (8.5-10.1); Osmolality,Calculated 281.7 MOS/KG (273-304)
[2018-06-19] MEDS ORDERED: SODIUM CHLORIDE 0.9% 1,000 ML IV SCH (17:00)
[2018-06-19] MEDS: PIPERACILLIN/TAZOBACTAM 3,375 MG in SODIUM CHLORIDE 0.9% 100 ML IV SCH ×2 (17:02→23:18)
[2018-06-19] MEDS: INSULIN NPH 100 UNIT/ML SUBCUT SCH (17:03)
[2018-06-19] MEDS: INSULIN REGULAR 100 UNIT/ML SUBCUT SCH (17:03)
[2018-06-20] MEDS: INSULIN REGULAR 100 UNIT/ML SUBCUT SCH ×4 (00:22→17:06)
[2018-06-20 06:24] LABS: Basophils % 0.3 % (0.0-0.8); Eosinophils # 0.1 10*3/uL (0.0-0.87); Eosinophils % 1.3 % (0.00-10.9); Hematocrit 33.2 VOL% (35.7-47.0); Hemoglobin 10.6 GM/DL (12.0-16.0); Immature Granulocytes % 0.9 %; Lymphocytes % 28.1 % (21.3-54.2); Mean Corpuscular HGB Conc 31.9 GM/DL (32-36); Mean Corpuscular Hemoglobin 28 PG (27-34); Mean Corpuscular Volume 86.9 FL (87-102); Mean Platelet Volume 10.3 FL (9.6-12.0); Monocytes # 0.8 10*3/uL (0.11-0.8); Monocytes % 7.8 % (1.7-12.7); Neutrophils # 6.6 10*3/uL (1.4-7.4); Neutrophils % 61.6 % (38.7-73.9); Platelet Count 389 T/CUMM (130-400); Red Blood Count 3.82 MC/CUMM (3.8-5.5); Red Cell Distribution Width 13.2 % (9.3-17.3); White Blood Count 10.6 T/CUMM (4-12)
[2018-06-20 06:48] LABS: Calcium 9.9 MG/DL (8.5-10.1); Osmolality,Calculated 275.5 MOS/KG (273-304); Potassium 3.2 MMOL/L (3.5-5.1)
[2018-06-20] MEDS: INSULIN NPH 100 UNIT/ML SUBCUT SCH ×2 (09:29→17:06)
[2018-06-20] MEDS: PANTOPRAZOLE 40 MG TABLET PO SCH (09:29)
[2018-06-20] MEDS: SODIUM CHLORIDE 0.45% 1,000 ML IV SCH (09:29)
[2018-06-20] MEDS: PIPERACILLIN/TAZOBACTAM 3,375 MG in SODIUM CHLORIDE 0.9% 100 ML IV SCH ×2 (12:29→17:05)
[2018-06-20] MEDS: POTASSIUM CHLORIDE 20 MEQ TABLET PO PRN ×2 (17:06→18:42)
[2018-06-21] MEDS: SODIUM CHLORIDE 0.45% 1,000 ML IV SCH ×3 (00:49→05:35)
[2018-06-21] MEDS: PIPERACILLIN/TAZOBACTAM 3,375 MG in SODIUM CHLORIDE 0.9% 100 ML IV SCH ×2 (00:57→08:50)
[2018-06-21] MEDS: INSULIN REGULAR 100 UNIT/ML SUBCUT SCH ×4 (00:59→11:45)
[2018-06-21 07:12] LABS: Basophils # 0.1 10*3/uL (0.0-0.2); Basophils % 0.6 % (0.0-0.8); Eosinophils # 0.1 10*3/uL (0.0-0.87); Eosinophils % 1.1 % (0.00-10.9); Hematocrit 32.3 VOL% (35.7-47.0); Hemoglobin 10.6 GM/DL (12.0-16.0); Immature Granulocytes % 1.1 %; Immature Granulocytes Absolute 0.11 #; Lymphocytes % 40.7 % (21.3-54.2); Mean Corpuscular HGB Conc 32.8 GM/DL (32-36); Mean Corpuscular Hemoglobin 28 PG (27-34); Mean Corpuscular Volume 84.8 FL (87-102); Mean Platelet Volume 10.6 FL (9.6-12.0); Monocytes # 0.6 10*3/uL (0.11-0.8); Monocytes % 6.3 % (1.7-12.7); Neutrophils # 4.9 10*3/uL (1.4-7.4); Neutrophils % 50.2 % (38.7-73.9); Platelet Count 390 T/CUMM (130-400); Red Blood Count 3.81 MC/CUMM (3.8-5.5); Red Cell Distribution Width 13.3 % (9.3-17.3); White Blood Count 9.8 T/CUMM (4-12)
[2018-06-21] MEDS: PANTOPRAZOLE 40 MG TABLET PO SCH (08:50)
[2018-06-21] MEDS: INSULIN NPH 100 UNIT/ML SUBCUT SCH (08:50)
[2018-06-21 13:12] VITALS: BP 119/71
== END 2018-06-21 16:21 | disposition home or self-care (01) | DRG 347 ==
LOC: N.ED 08:44 → N.EDINP 11:41 → N.5E 14:43
PROVIDERS: ADMIT Internal Medicine; ATTEND Internal Medicine

== ENCOUNTER 2018-11-11 15:23 | Inpatient (IN) ==
[2018-11-11] MEDS ORDERED: ONDANSETRON 4 MG/2 ML VIAL IV STA (16:25)
[2018-11-11] MEDS ORDERED: SODIUM CHLORIDE 0.9% 1,000 ML IV STA ×2 (16:25→18:59)
[2018-11-11 16:56] LABS: Basophils % 0.3 % (0.0-0.8); Hematocrit 38.6 VOL% (35.7-47.0); Hemoglobin 11.9 GM/DL (12.0-16.0); Immature Granulocytes Absolute 0.08 #; Lymphocytes # 2.1 10*3/uL (1.4-4.0); Lymphocytes % 26.5 % (21.3-54.2); Mean Corpuscular HGB Conc 30.8 GM/DL (32-36); Mean Corpuscular Hemoglobin 27 PG (27-34); Mean Corpuscular Volume 88.3 FL (87-102); Mean Platelet Volume 10.2 FL (9.6-12.0); Monocytes % 12.8 % (1.7-12.7); Neutrophils # 4.8 10*3/uL (1.4-7.4); Neutrophils % 59.4 % (38.7-73.9); Platelet Count 353 T/CUMM (130-400); Red Blood Count 4.37 MC/CUMM (3.8-5.5); Red Cell Distribution Width 14.5 % (9.3-17.3)
[2018-11-11 17:36] LABS: Alanine Aminotransferase < 9 U/L (13-56); Alkaline Phosphatase 178 U/L (45-117); Aspartate Amino Transferase 11 U/L (0-37); Blood Urea Nitrogen 8 MG/DL (7-18); Calcium 10.4 MG/DL (8.5-10.1); Glucose 381 MG/DL (74-106); Osmolality,Calculated 277.5 MOS/KG (273-304); Potassium 4.3 MMOL/L (3.5-5.1); Sodium 132 MMOL/L (136-145); Total Protein 7.3 G/DL (6.4-8.3)
[2018-11-11 17:51] LABS: Apearance,Urine Slightly Hazy (Clear); Bilirubin,Urine Negative (Negative); Blood, Urine Large mg/dL (Negative); Glucose,Urine (UA) >=500 mg/dL (Negative); Ketones,Urine 80 mg/dL (Negative); Mucus,Urine Occasional /LPF (Occasional); Nitrite,Urine Negative (Negative); Protein,Urine Negative; Squamous Epithelial Cell,Urine Occasional /HPF (0-10); Urine Color Yellow (Yellow); Urine Specific Gravity 1.022 (1.001-1.035); Urine Urobilinogen < 2.0 EU/DL (0.2-1.0); WBC,Urine 40 /HPF (0-6)
[2018-11-11] MEDS ORDERED: INSULIN REGULAR 100 UNIT/ML IV STA (17:53)
[2018-11-11 18:02] LABS: Band Neutrophils 3 % (0-10); Eosinophils 1 % (0-10); Lymphocytes 22 % (20-55); Segmented Neutrophils 66 % (50-85); Total Cells Counted 100
[2018-11-11 18:03] LABS: Platelet Estimate Adequate
[2018-11-11 18:09] LABS: ABG Base Excess -12.2 MMOL/L (-2.5-2.5); ABG Oxygen Saturation 98.4 % (95-100); ABG PCO2 25.9 MM HG (35-48); ABG PH 7.306 (7.35-7.45); ABG TCO2 11.7 MMOL/L (23-27)
[2018-11-11] MEDS ORDERED: DEXTROSE 50% 25 GM/50 ML SYRINGE IV PRN ×2 (18:20)
[2018-11-11] MEDS ORDERED: SODIUM BICARB INJ 100 MEQ in STERILE WATER INJ 400 ML IV PRN (18:20)
[2018-11-11] MEDS ORDERED: ONDANSETRON 4 MG/2 ML VIAL IV PRN (18:20)
[2018-11-11] MEDS ORDERED: MAGNESIUM SULF RIDER 4 GM in PREMIX 1 EACH IV PRN (18:20)
[2018-11-11] MEDS ORDERED: SODIUM PHOSPHATE INJ 13 MMOL in SODIUM CHLORIDE 0.9% 250 ML IV PRN (18:20)
[2018-11-11] MEDS ORDERED: INSULIN REGULAR DRIP 100 ML IV SCH (18:30)
[2018-11-11] MEDS ORDERED: cefTRIAXone 1,000 MG VIAL ONE (18:50)
[2018-11-11] MEDS: cefTRIAXone 1,000 MG in SYRINGE 1 EACH IV SCH (18:59)
[2018-11-11 20:48] LABS: Calcium 9.5 MG/DL (8.5-10.1); Potassium 3.5 MMOL/L (3.5-5.1)
[2018-11-11] MEDS: SODIUM CHLORIDE 0.9% 1,000 ML IV SCH ×2 (21:20→23:12)
[2018-11-11] MEDS: POTASSIUM CHLORIDE RIDER 10 MEQ in PREMIX 1 EACH IV PRN ×3 (21:29→23:29)
[2018-11-11] MEDS: MAGNESIUM SULF RIDER 2 GM in PREMIX 1 EACH IV PRN (21:29)
[2018-11-11] MEDS: ENOXAPARIN 40 MG/0.4 ML SYRINGE SUBCUT SCH (22:30)
[2018-11-11] MEDS ORDERED: SODIUM CHLORIDE 0.9% 1,000 ML IV SCH (23:20)
[2018-11-12] MEDS: NACL 0.9% IV SCH ×2 (00:11→03:54)
[2018-11-12] MEDS: DEXTROSE 5% IV SCH ×2 (00:11→03:54)
[2018-11-12] MEDS ORDERED: INSULIN REGULAR 100 UNIT/ML IV PRN (01:13)
[2018-11-12 02:07] LABS: Calcium 8.8 MG/DL (8.5-10.1); Osmolality,Calculated 280.7 MOS/KG (273-304); Potassium 3.8 MMOL/L (3.5-5.1)
[2018-11-12] MEDS: POTASSIUM CHLORIDE RIDER 10 MEQ in PREMIX 1 EACH IV PRN ×2 (02:21→04:40)
[2018-11-12] MEDS: SODIUM CHLOR 0.45% KCL 20 MEQ 20 MEQ/1,000 ML BAG IV SCH ×3 (04:05→15:27)
[2018-11-12] MEDS: DEXT 5% NACL 0.45% KCL 20 MEQ 20 MEQ/1,000 ML BAG IV SCH ×3 (05:07→14:56)
[2018-11-12 05:30] LABS: Basophils % 0.2 % (0.0-0.8); Eosinophils % 0.2 % (0.00-10.9); Hematocrit 32.8 VOL% (35.7-47.0); Hemoglobin 10.2 GM/DL (12.0-16.0); Immature Granulocytes Absolute 0.06 #; Lymphocytes # 2.1 10*3/uL (1.4-4.0); Lymphocytes % 34.3 % (21.3-54.2); Mean Corpuscular HGB Conc 31.1 GM/DL (32-36); Mean Corpuscular Hemoglobin 27 PG (27-34); Mean Corpuscular Volume 86.3 FL (87-102); Mean Platelet Volume 10.2 FL (9.6-12.0); Monocytes # 0.5 10*3/uL (0.11-0.8); Monocytes % 7.5 % (1.7-12.7); Neutrophils # 3.5 10*3/uL (1.4-7.4); Neutrophils % 56.8 % (38.7-73.9); Platelet Count 310 T/CUMM (130-400); Red Cell Distribution Width 14.5 % (9.3-17.3); White Blood Count 6.2 T/CUMM (4-12)
[2018-11-12 05:52] LABS: Hypochromasia 1+; Platelet Estimate Adequate
[2018-11-12] MEDS: MAGNESIUM SULF RIDER 2 GM in PREMIX 1 EACH IV PRN (06:30)
[2018-11-12 06:53] LABS: Calcium 9.2 MG/DL (8.5-10.1); Osmolality,Calculated 277.5 MOS/KG (273-304); Potassium 3.5 MMOL/L (3.5-5.1)
[2018-11-12 11:02] LABS: Calcium 9.4 MG/DL (8.5-10.1); Osmolality,Calculated 276.3 MOS/KG (273-304); Potassium 3.8 MMOL/L (3.5-5.1)
[2018-11-12] MEDS ORDERED: SODIUM CHLORIDE 0.45% 1,000 ML IV SCH (11:20)
[2018-11-12] MEDS ORDERED: POTASSIUM PHOSPHATE 15 MMOL in SODIUM CHLORIDE 0.9% 100 ML IV ONE (14:00)
[2018-11-12 14:54] LABS: Calcium 9.3 MG/DL (8.5-10.1); Potassium 3.6 MMOL/L (3.5-5.1)
[2018-11-12] MEDS ORDERED: GLUCAGON 1 MG VIAL IM PRN (14:58)
[2018-11-12] MEDS ORDERED: DEXTROSE 50% 25 GM/50 ML SYRINGE IV PRN (14:58)
[2018-11-12] MEDS: INSULIN LISPRO 100 UNIT/ML SUBCUT SCH ×2 (16:53→21:30)
[2018-11-12] MEDS: cefTRIAXone 1,000 MG in SYRINGE 1 EACH IV SCH (19:29)
[2018-11-12] MEDS ORDERED: INSULIN GLARGINE 100 UNIT/ML SUBCUT SCH (21:00)
[2018-11-12] MEDS: ENOXAPARIN 40 MG/0.4 ML SYRINGE SUBCUT SCH (21:30)
[2018-11-12] MEDS: INSULIN GLARGINE 100 UNIT/ML SUBCUT SCH (21:31)
[2018-11-13 05:22] LABS: Calcium 9.7 MG/DL (8.5-10.1); Osmolality,Calculated 283.3 MOS/KG (273-304); Potassium 3.3 MMOL/L (3.5-5.1)
[2018-11-13] MEDS: POTASSIUM CHLORIDE RIDER 10 MEQ in PREMIX 1 EACH IV PRN ×2 (06:11→09:05)
[2018-11-13] MEDS: INSULIN LISPRO 100 UNIT/ML SUBCUT SCH ×4 (09:00→21:13)
[2018-11-13 09:04] LABS: Risk Ratio 4.26; Thyroid Stimulating Hormone 0.702 uIU/ml (0.358-3.74); VLDL CHOLESTEROL 31.6 MG/DL
[2018-11-13] MEDS ORDERED: POTASSIUM CHLORIDE 20 MEQ TABLET PO PRN (11:55)
[2018-11-13] MEDS: cefTRIAXone 1,000 MG in SYRINGE 1 EACH IV SCH (17:38)
[2018-11-13] MEDS: ENOXAPARIN 40 MG/0.4 ML SYRINGE SUBCUT SCH (21:13)
[2018-11-13] MEDS: INSULIN GLARGINE 100 UNIT/ML SUBCUT SCH (21:14)
[2018-11-14 05:11] LABS: Basophils % 0.4 % (0.0-0.8); Eosinophils % 0.6 % (0.00-10.9); Hematocrit 34.5 VOL% (35.7-47.0); Hemoglobin 10.8 GM/DL (12.0-16.0); Immature Granulocytes % 0.4 %; Immature Granulocytes Absolute 0.02 #; Lymphocytes # 3.2 10*3/uL (1.4-4.0); Lymphocytes % 63.7 % (21.3-54.2); Mean Corpuscular HGB Conc 31.3 GM/DL (32-36); Mean Corpuscular Hemoglobin 27 PG (27-34); Mean Platelet Volume 10.2 FL (9.6-12.0); Monocytes # 0.2 10*3/uL (0.11-0.8); Monocytes % 4.8 % (1.7-12.7); Neutrophils # 1.5 10*3/uL (1.4-7.4); Neutrophils % 30.1 % (38.7-73.9); Platelet Count 349 T/CUMM (130-400); Red Blood Count 4.06 MC/CUMM (3.8-5.5); Red Cell Distribution Width 14.6 % (9.3-17.3)
[2018-11-14 05:24] LABS: Calcium 9.9 MG/DL (8.5-10.1); Osmolality,Calculated 281.1 MOS/KG (273-304); Potassium 3.5 MMOL/L (3.5-5.1)
[2018-11-14 06:18] LABS: Lymphocytes 58 % (20-55); Segmented Neutrophils 42 % (50-85); Total Cells Counted 100
[2018-11-14 06:19] LABS: Platelet Estimate Normal; Polychromasia Few
[2018-11-14] MEDS: INSULIN LISPRO 100 UNIT/ML SUBCUT SCH ×2 (09:06→12:15)
[2018-11-14] MEDS ORDERED: INFLUENZA VIRUS VACCINE 0.5 ML SYRINGE IM ONE (11:05)
[2018-11-14 12:35] VITALS: BP 130/98
== END 2018-11-14 12:37 | disposition home or self-care (01) | DRG 638 ==
LOC: N.ED 15:23 → SUATTDRO 19:09 → N.EDINP 19:09 → N.ICU 20:05 → N.2E 11-12 17:54
PROVIDERS: ADMIT Internal Medicine; ATTEND Internal Medicine

== ENCOUNTER 2019-08-09 12:06 | Inpatient (IN) ==
[2019-08-09] MEDS ORDERED: ONDANSETRON 4 MG/2 ML VIAL IV STA (12:40)
[2019-08-09] MEDS ORDERED: SODIUM CHLORIDE 0.9% 1,000 ML IV STA ×2 (12:40→13:45)
[2019-08-09 13:38] LABS: ABG Base Excess -26.9 MMOL/L (-2.5-2.5); ABG HCO3 1.6 MMOL/L (20-26); ABG Oxygen Saturation 98.5 % (95-100); ABG PO2 151.1 MM HG (80-95); ABG TCO2 1.8 MMOL/L (23-27); Allen Test Positive; Pt O2 Delivery Device Room Air
[2019-08-09 13:42] LABS: ABG PCO2 6.2 MM HG (35-48); ABG PH 7.031 (7.35-7.45)
[2019-08-09] MEDS ORDERED: INSULIN REGULAR 100 UNIT/ML IV ONE (13:43)
[2019-08-09] MEDS ORDERED: SODIUM BICARBONATE 50 MEQ/50 ML VIAL IV STA (13:43)
[2019-08-09 14:03] LABS: Apearance,Urine Slightly Hazy (Clear); Bacteria,Urine Occasional /HPF (Few); Bilirubin,Urine Negative (Negative); Blood, Urine Small mg/dL (Negative); Glucose,Urine (UA) >=500 mg/dL (Negative); Ketones,Urine 80 mg/dL (Negative); Mucus,Urine Occasional /LPF (Occasional); Nitrite,Urine Negative (Negative); Protein,Urine 30 MG/DL; RBC,Urine 1 /HPF (0-4); Squamous Epithelial Cell,Urine Occasional /HPF (0-10); Urine Color Yellow (Yellow); Urine Specific Gravity 1.016 (1.001-1.035); Urine Urobilinogen < 2.0 EU/DL (0.2-1.0); WBC,Urine 9 /HPF (0-6)
[2019-08-09 14:32] LABS: Basophils # 0.1 10*3/uL (0.0-0.2); Basophils % 0.3 % (0.0-0.8); Eosinophils % 0.1 % (0.00-10.9); Hemoglobin 14.2 GM/DL (12.0-16.0); Immature Granulocytes % 8.6 %; Immature Granulocytes Absolute 1.72 #; Lymphocytes # 2.2 10*3/uL (1.4-4.0); Lymphocytes % 11.2 % (21.3-54.2); Mean Corpuscular HGB Conc 30.1 GM/DL (32-36); Mean Corpuscular Volume 93.8 FL (87-102); Mean Platelet Volume 11.3 FL (9.6-12.0); Monocytes % 5.6 % (1.7-12.7); Neutrophils % 74.2 % (38.7-73.9); Platelet Count 517 T/CUMM (130-400); Red Blood Count 5.03 MC/CUMM (3.8-5.5); Red Cell Distribution Width 14.9 % (9.3-17.3)
[2019-08-09 14:33] LABS: Hematocrit 47.2 VOL% (35.7-47.0)
[2019-08-09 16:16] LABS: Albumin 2.9 G/DL (3.4-5.0); Bilirubin,Total 0.7 MG/DL (0.2-1.0); Calcium 10.5 MG/DL (8.5-10.1); Osmolality,Calculated 301.3 MOS/KG (273-304); Total Protein 8.6 G/DL (6.4-8.3)
[2019-08-09 16:24] LABS: Band Neutrophils 23 % (0-10); Lymphocytes 11 % (20-55); Metamyelocytes 7 %; Myelocytes 7 %; Segmented Neutrophils 48 % (50-85); Total Cells Counted 100
[2019-08-09 16:25] LABS: Anisocytosis Slight; Burr Cells 2+; Macrocytosis Slight; Platelet Estimate Increased
[2019-08-09] MEDS ORDERED: SODIUM PHOSPHATE INJ 13.6 MMOL in SODIUM CHLORIDE 0.9% 250 ML IV PRN (16:57)
[2019-08-09] MEDS ORDERED: SODIUM BICARB INJ 100 MEQ in STERILE WATER INJ 400 ML IV PRN (16:57)
[2019-08-09] MEDS ORDERED: DEXTROSE 10% 250 ML BAG IV PRN ×2 (16:57)
[2019-08-09] MEDS ORDERED: MAGNESIUM SULF RIDER 4 GM in PREMIX 1 EACH IV PRN (16:57)
[2019-08-09] MEDS ORDERED: MAGNESIUM SULF RIDER 2 GM in PREMIX 1 EACH IV PRN (16:57)
[2019-08-09] MEDS ORDERED: SODIUM CHLORIDE 0.9% 1,000 ML IV SCH (17:00)
[2019-08-09] MEDS ORDERED: INFLUENZA VIRUS VACCINE 0.5 ML SYRINGE IM ONE (18:33)
[2019-08-09] MEDS: INSULIN REGULAR DRIP 100 ML IV PRN ×2 (18:36→18:38)
[2019-08-09] MEDS ORDERED: INSULIN REGULAR 100 UNIT/ML IV PRN (18:40)
[2019-08-09] MEDS: SODIUM CHLORIDE 0.9% 1,000 ML IV SCH ×2 (19:51→23:09)
[2019-08-09] MEDS: ENOXAPARIN 40 MG/0.4 ML SYRINGE SUBCUT SCH (20:08)
[2019-08-09 22:24] LABS: Calcium 9.4 MG/DL (8.5-10.1); Osmolality,Calculated 302.3 MOS/KG (273-304)
[2019-08-09] MEDS ORDERED: SODIUM CHLORIDE 0.45% 1,000 ML IV SCH (23:00)
[2019-08-10 00:50] LABS: Calcium 10.1 MG/DL (8.5-10.1); Osmolality,Calculated 303.1 MOS/KG (273-304)
[2019-08-10] MEDS: DEXT 5% NACL 0.45% KCL 20 MEQ 20 MEQ/1,000 ML BAG IV SCH ×2 (01:12→05:12)
[2019-08-10 04:37] LABS: Basophils # 0.1 10*3/uL (0.0-0.2); Basophils % 0.9 % (0.0-0.8); Hematocrit 32.8 VOL% (35.7-47.0); Immature Granulocytes % 5.8 %; Immature Granulocytes Absolute 0.83 #; Lymphocytes # 1.3 10*3/uL (1.4-4.0); Lymphocytes % 9.2 % (21.3-54.2); Mean Corpuscular HGB Conc 31.4 GM/DL (32-36); Mean Corpuscular Volume 87.7 FL (87-102); Mean Platelet Volume 9.9 FL (9.6-12.0); Monocytes % 10.1 % (1.7-12.7); Red Cell Distribution Width 14.8 % (9.3-17.3); White Blood Count 14.4 T/CUMM (4-12)
[2019-08-10 04:54] LABS: Calcium 9.5 MG/DL (8.5-10.1); Osmolality,Calculated 296.7 MOS/KG (273-304)
[2019-08-10 05:03] LABS: Hemoglobin 10.3 GM/DL (12.0-16.0); Platelet Count 387 T/CUMM (130-400); Red Blood Count 3.74 MC/CUMM (3.8-5.5)
[2019-08-10] MEDS: POTASSIUM CHLORIDE RIDER 10 MEQ in PREMIX 1 EACH IV PRN ×6 (05:18→15:35)
[2019-08-10 05:59] LABS: Band Neutrophils 15 % (0-10); Eosinophils 1 % (0-10); Lymphocytes 11 % (20-55); Myelocytes 2 %; Platelet Estimate Adequate; Segmented Neutrophils 63 % (50-85); Total Cells Counted 100
[2019-08-10 06:00] LABS: Hypochromasia 1+; Macrocytosis Slight
[2019-08-10 09:18] LABS: Calcium 9.4 MG/DL (8.5-10.1); Osmolality,Calculated 286.1 MOS/KG (273-304)
[2019-08-10] MEDS ORDERED: DEXTROSE 5% NACL 0.45% 1,000 ML IV SCH (10:00)
[2019-08-10] MEDS ORDERED: POTASSIUM PHOSPHATE 20 MMOL in SODIUM CHLORIDE 0.9% 100 ML IV ONE (12:00)
[2019-08-10 12:08] LABS: ABG HCO3 17.9 MMOL/L (20-26); ABG Oxygen Saturation 98.8 % (95-100); ABG PCO2 29.2 MM HG (35-48); ABG PH 7.358 (7.35-7.45); ABG TCO2 14.9 MMOL/L (23-27); Allen Test Positive; Pt O2 Delivery Device Room Air
[2019-08-10 12:36] LABS: Calcium 9.5 MG/DL (8.5-10.1); Osmolality,Calculated 288.6 MOS/KG (273-304)
[2019-08-10] MEDS ORDERED: GLUCAGON 1 MG VIAL IM PRN ×2 (12:42→12:43)
[2019-08-10] MEDS ORDERED: DEXTROSE 50% 25 GM/50 ML VIAL IV PRN ×2 (12:42→12:43)
[2019-08-10] MEDS ORDERED: INSULIN LISPRO 100 UNIT/ML SUBCUT SCH ×2 (12:45→14:00)
[2019-08-10] MEDS: cefTRIAXone 1,000 MG in SYRINGE 1 EACH IV SCH (13:00)
[2019-08-10 13:32] LABS: Calcium 9.6 MG/DL (8.5-10.1); Osmolality,Calculated 291.6 MOS/KG (273-304)
[2019-08-10] MEDS: INSULIN LISPRO 100 UNIT/ML SUBCUT SCH ×2 (15:06→20:14)
[2019-08-10 16:23] LABS: Calcium 9.4 MG/DL (8.5-10.1); Osmolality,Calculated 292.8 MOS/KG (273-304)
[2019-08-10 18:57] LABS: Calcium 9.7 MG/DL (8.5-10.1); Osmolality,Calculated 289.8 MOS/KG (273-304)
[2019-08-10] MEDS: ENOXAPARIN 40 MG/0.4 ML SYRINGE SUBCUT SCH (20:14)
[2019-08-10 20:18] LABS: Calcium 9.7 MG/DL (8.5-10.1); Osmolality,Calculated 284.3 MOS/KG (273-304)
[2019-08-11] MEDS: INSULIN LISPRO 100 UNIT/ML SUBCUT SCH ×6 (00:26→21:30)
[2019-08-11 00:58] LABS: Osmolality,Calculated 282.8 MOS/KG (273-304)
[2019-08-11 06:15] LABS: Calcium 10.3 MG/DL (8.5-10.1); Osmolality,Calculated 278.7 MOS/KG (273-304)
[2019-08-11 08:05] LABS: Calcium 9.8 MG/DL (8.5-10.1); Osmolality,Calculated 284.4 MOS/KG (273-304)
[2019-08-11] MEDS: cefTRIAXone 1,000 MG in SYRINGE 1 EACH IV SCH (12:13)
[2019-08-11] MEDS ORDERED: INSULIN GLARGINE 100 UNIT/ML SUBCUT SCH (21:00)
[2019-08-11] MEDS: ENOXAPARIN 40 MG/0.4 ML SYRINGE SUBCUT SCH (21:31)
[2019-08-12] MEDS: INSULIN LISPRO 100 UNIT/ML SUBCUT SCH ×4 (00:02→16:52)
[2019-08-12 08:25] LABS: Calcium 9.4 MG/DL (8.5-10.1)
[2019-08-12] MEDS: POTASSIUM CHLORIDE RIDER 10 MEQ in PREMIX 1 EACH IV PRN (09:40)
[2019-08-12] MEDS: cefTRIAXone 1,000 MG in SYRINGE 1 EACH IV SCH (13:00)
[2019-08-12 14:50] VITALS: BP 100/67
== END 2019-08-12 16:30 | disposition home or self-care (01) | DRG 638 ==
LOC: EDUNIT# → EDBD → N.ED 12:06 → N.EDINP 16:57 → SUATTDRO 16:57 → N.ICU 18:14 → N.4E 08-11 14:15
PROVIDERS: ADMIT Internal Medicine; ATTEND Internal Medicine

== ENCOUNTER 2019-11-25 19:24 | Inpatient (IN) ==
[2019-11-25] MEDS ORDERED: METOCLOPRAMIDE 10 MG/2 ML VIAL IV STA (20:00)
[2019-11-25] MEDS ORDERED: ONDANSETRON 4 MG/2 ML VIAL IV STA (20:00)
[2019-11-25] MEDS ORDERED: SODIUM CHLORIDE 0.9% 2,000 ML IV STA (20:00)
[2019-11-25 21:03] LABS: Albumin 3.5 G/DL (3.4-5.0); Bilirubin,Total 0.5 MG/DL (0.2-1.0); Calcium 11.4 MG/DL (8.5-10.1); Osmolality,Calculated 271.8 MOS/KG (273-304); Total Protein 10.3 G/DL (6.4-8.3)
[2019-11-25 21:04] LABS: Basophils # 0.1 10*3/uL (0.0-0.2); Basophils % 0.2 % (0.0-0.8); Hematocrit 50.4 VOL% (35.7-47.0); Immature Granulocytes Absolute 0.21 #; Lymphocytes # 1.6 10*3/uL (1.4-4.0); Lymphocytes % 7.2 % (21.3-54.2); Mean Corpuscular HGB Conc 29.4 GM/DL (32-36); Mean Corpuscular Volume 90.3 FL (87-102); Mean Platelet Volume 10.4 FL (9.6-12.0); Monocytes % 3.2 % (1.7-12.7); Neutrophils % 88.4 % (38.7-73.9); Platelet Count 427 T/CUMM (130-400); Red Blood Count 5.58 MC/CUMM (3.8-5.5); Red Cell Distribution Width 14.9 % (9.3-17.3); White Blood Count 21.6 T/CUMM (4-12)
[2019-11-25 21:07] LABS: Hemoglobin 14.8 GM/DL (12.0-16.0)
[2019-11-25 21:11] LABS: Lymphocytes 6 % (20-55); Segmented Neutrophils 93 % (50-85); Total Cells Counted 100
[2019-11-25 21:12] LABS: Platelet Estimate Increased
[2019-11-25] MEDS ORDERED: LEVOFLOXACIN INJ 750 MG in PREMIX 1 EACH IV STA (21:14)
[2019-11-25] MEDS ORDERED: INSULIN REGULAR 100 UNIT/ML IV ONE ×2 (21:14→22:30)
[2019-11-25] MEDS ORDERED: SODIUM CHLORIDE 0.9% 1,000 ML IV ONE (21:44)
[2019-11-25] MEDS ORDERED: SODIUM CHLORIDE 0.9% IV PRN (21:44)
[2019-11-25] MEDS ORDERED: MAGNESIUM SULF RIDER 4 GM in PREMIX 1 EACH IV PRN (21:44)
[2019-11-25] MEDS ORDERED: DEXTROSE 50% 25 GM/50 ML VIAL IV PRN ×2 (21:44)
[2019-11-25] MEDS ORDERED: SODIUM PHOSPHATE IV PRN (21:44)
[2019-11-25] MEDS ORDERED: SODIUM BICARB INJ 100 MEQ in STERILE WATER INJ 400 ML IV PRN (21:44)
[2019-11-25] MEDS ORDERED: POTASSIUM CHLORIDE RIDER 10 MEQ in PREMIX 1 EACH IV PRN (21:44)
[2019-11-25 22:11] LABS: Apearance,Urine CLOUDY (Clear); Bacteria,Urine Many /HPF (Few); Bilirubin,Urine Negative (Negative); Blood, Urine Moderate mg/dL (Negative); Glucose,Urine (UA) >=500 mg/dL (Negative); Ketones,Urine 80 mg/dL (Negative); Nitrite,Urine Negative (Negative); Protein,Urine 30 MG/DL; RBC,Urine 4 /HPF (0-4); Urine Color Yellow (Yellow); Urine Specific Gravity 1.013 (1.001-1.035); Urine Urobilinogen < 2.0 EU/DL (0.2-1.0); WBC,Urine 6 /HPF (0-6)
[2019-11-25] MEDS ORDERED: INFLUENZA VIRUS VACCINE 0.5 ML SYRINGE IM ONE (23:55)
[2019-11-26 00:04] LABS: ABG Base Excess -15.1 MMOL/L (-2.5-2.5); ABG HCO3 9.3 MMOL/L (20-26); ABG Oxygen Saturation 98.9 % (95-100); ABG PH 7.293 (7.35-7.45); ABG PO2 144.2 MM HG (80-95); ABG TCO2 9.9 MMOL/L (23-27); Allen Test Positive
[2019-11-26 00:06] LABS: ABG PCO2 19.7 MM HG (35-48)
[2019-11-26] MEDS ORDERED: VANCOMYCIN INJ 1,250 MG in SODIUM CHLORIDE 0.9% 250 ML IV ONE (01:00)
[2019-11-26] MEDS: SODIUM CHLORIDE 0.9% 1,000 ML IV SCH ×2 (01:43→04:38)
[2019-11-26] MEDS: PIPERACILLIN/TAZOBACTAM 3,375 MG in SODIUM CHLORIDE 0.9% 100 ML IV SCH ×2 (01:55→20:18)
[2019-11-26 02:34] LABS: Osmolality,Calculated 277.4 MOS/KG (273-304)
[2019-11-26] MEDS ORDERED: SODIUM CHLORIDE 0.9% 1,000 ML IV SCH (02:45)
[2019-11-26 03:51] LABS: ABG Base Excess -17.4 MMOL/L (-2.5-2.5); ABG HCO3 11.4 MMOL/L (20-26); ABG Oxygen Saturation 96.4 % (95-100); Allen Test Positive; Pt O2 Delivery Device Room Air
[2019-11-26 03:53] LABS: ABG PCO2 19.6 MM HG (35-48)
[2019-11-26 04:52] LABS: Basophils % 0.2 % (0.0-0.8); Hematocrit 36.7 VOL% (35.7-47.0); Immature Granulocytes % 0.8 %; Immature Granulocytes Absolute 0.13 #; Lymphocytes # 0.9 10*3/uL (1.4-4.0); Lymphocytes % 5.3 % (21.3-54.2); Mean Platelet Volume 10.3 FL (9.6-12.0); Monocytes % 7.4 % (1.7-12.7); Neutrophils % 86.3 % (38.7-73.9); Platelet Count 350 T/CUMM (130-400); Red Blood Count 4.22 MC/CUMM (3.8-5.5); Red Cell Distribution Width 14.8 % (9.3-17.3); White Blood Count 17.2 T/CUMM (4-12)
[2019-11-26 05:11] LABS: Calcium 9.3 MG/DL (8.5-10.1); Osmolality,Calculated 280.4 MOS/KG (273-304)
[2019-11-26] MEDS: INSULIN REGULAR DRIP 100 ML IV SCH ×2 (05:29→16:04)
[2019-11-26] MEDS: DEXTROSE 5% NACL 0.45% 1,000 ML IV SCH ×5 (05:29→22:25)
[2019-11-26] MEDS: SODIUM CHLOR 0.45% KCL 20 MEQ 20 MEQ/1,000 ML BAG IV SCH ×5 (06:24→22:56)
[2019-11-26] MEDS: DEXT 5% NACL 0.45% KCL 20 MEQ 20 MEQ/1,000 ML BAG IV SCH ×5 (07:50→22:55)
[2019-11-26] MEDS: ENOXAPARIN 40 MG/0.4 ML SYRINGE SUBCUT SCH (10:00)
[2019-11-26 10:20] LABS: Calcium 9.5 MG/DL (8.5-10.1)
[2019-11-26] MEDS ORDERED: VANCOMYCIN INJ 750 MG in SODIUM CHLORIDE 0.9% 250 ML IV SCH (13:00)
[2019-11-26 14:30] LABS: Calcium 9.5 MG/DL (8.5-10.1); Osmolality,Calculated 273.8 MOS/KG (273-304)
[2019-11-26] MEDS: ACETAMINOPHEN 325 MG TABLET PO PRN (16:17)
[2019-11-26] MEDS: SODIUM CHLORIDE 0.45% 1,000 ML IV SCH (16:43)
[2019-11-26 17:52] LABS: Calcium 9.7 MG/DL (8.5-10.1); Osmolality,Calculated 269.8 MOS/KG (273-304)
[2019-11-26 23:39] LABS: Calcium 9.6 MG/DL (8.5-10.1); Osmolality,Calculated 273.7 MOS/KG (273-304)
[2019-11-27] MEDS: SODIUM CHLORIDE 0.45% 1,000 ML IV SCH ×3 (00:14→19:25)
[2019-11-27] MEDS: INSULIN REGULAR DRIP 100 ML IV SCH (00:15)
[2019-11-27 03:22] LABS: Risk Ratio 2.53
[2019-11-27 03:32] LABS: Calcium 9.9 MG/DL (8.5-10.1); Osmolality,Calculated 274.5 MOS/KG (273-304)
[2019-11-27] MEDS: ACETAMINOPHEN 325 MG TABLET PO PRN (04:41)
[2019-11-27] MEDS: PIPERACILLIN/TAZOBACTAM 3,375 MG in SODIUM CHLORIDE 0.9% 100 ML IV SCH ×3 (04:50→21:12)
[2019-11-27] MEDS: DEXT 5% NACL 0.45% KCL 20 MEQ 20 MEQ/1,000 ML BAG IV SCH ×3 (07:11→21:48)
[2019-11-27 07:47] LABS: Calcium 9.6 MG/DL (8.5-10.1); Osmolality,Calculated 276.4 MOS/KG (273-304)
[2019-11-27] MEDS ORDERED: POTASSIUM CHLORIDE 20 MEQ TABLET PO ONE (09:18)
[2019-11-27] MEDS: ENOXAPARIN 40 MG/0.4 ML SYRINGE SUBCUT SCH (09:39)
[2019-11-27] MEDS ORDERED: INSULIN GLARGINE 100 UNIT/ML SUBCUT ONE (11:40)
[2019-11-27 11:56] LABS: Calcium 9.1 MG/DL (8.5-10.1); Osmolality,Calculated 280.4 MOS/KG (273-304)
[2019-11-27] MEDS ORDERED: INSULIN ASPART PROTAMINE/ASPART 70/30 100 UNIT/ML SUBCUT ONE (12:43)
[2019-11-27] MEDS ORDERED: GLUCAGON 1 MG VIAL IM PRN (17:48)
[2019-11-27] MEDS ORDERED: INSULIN LISPRO 100 UNIT/ML SUBCUT ONE (18:05)
[2019-11-27] MEDS ORDERED: INSULIN LISPRO 100 UNIT/ML ONE (18:08)
[2019-11-27] MEDS: SODIUM CHLOR 0.45% KCL 20 MEQ 20 MEQ/1,000 ML BAG IV SCH (19:25)
[2019-11-27] MEDS ORDERED: INSULIN GLARGINE 100 UNIT/ML SUBCUT SCH (21:00)
[2019-11-27] MEDS ORDERED: INSULIN GLARGINE 30 UNIT SUBCUT SCH (21:00)
[2019-11-27] MEDS: INSULIN LISPRO 100 UNIT/ML SUBCUT SCH (21:13)
[2019-11-27] MEDS: INSULIN GLARGINE 100 UNIT/ML SUBCUT SCH (21:13)
[2019-11-28] MEDS: SODIUM CHLORIDE 0.45% 1,000 ML IV SCH (03:33)
[2019-11-28] MEDS: PIPERACILLIN/TAZOBACTAM 3,375 MG in SODIUM CHLORIDE 0.9% 100 ML IV SCH (03:34)
[2019-11-28 04:39] LABS: Basophils % 0.2 % (0.0-0.8); Eosinophils # 0.1 10*3/uL (0.0-0.87); Eosinophils % 0.5 % (0.00-10.9); Hematocrit 29.8 VOL% (35.7-47.0); Immature Granulocytes % 0.8 %; Immature Granulocytes Absolute 0.07 #; Lymphocytes # 2.2 10*3/uL (1.4-4.0); Lymphocytes % 23.8 % (21.3-54.2); Mean Corpuscular HGB Conc 31.9 GM/DL (32-36); Mean Corpuscular Volume 81.2 FL (87-102); Monocytes % 11.7 % (1.7-12.7); Red Blood Count 3.67 MC/CUMM (3.8-5.5); Red Cell Distribution Width 14.8 % (9.3-17.3); White Blood Count 9.3 T/CUMM (4-12)
[2019-11-28 04:40] LABS: Hemoglobin 9.5 GM/DL (12.0-16.0); Platelet Count 312 T/CUMM (130-400)
[2019-11-28 04:45] LABS: Calcium 9.2 MG/DL (8.5-10.1); Osmolality,Calculated 280.3 MOS/KG (273-304)
[2019-11-28] MEDS: MAGNESIUM SULF RIDER 2 GM in PREMIX 1 EACH IV PRN (05:43)
[2019-11-28] MEDS: POTASSIUM CHLORIDE 20 MEQ TABLET PO PRN ×3 (05:57→11:53)
[2019-11-28] MEDS: INSULIN LISPRO 100 UNIT/ML SUBCUT SCH ×4 (07:33→20:49)
[2019-11-28] MEDS: ENOXAPARIN 40 MG/0.4 ML SYRINGE SUBCUT SCH (08:38)
[2019-11-28] MEDS: cefTRIAXone 1,000 MG in SYRINGE 1 EACH IV SCH (11:53)
[2019-11-28] MEDS: INSULIN GLARGINE 100 UNIT/ML SUBCUT SCH (20:49)
[2019-11-29 05:25] LABS: Basophils % 0.4 % (0.0-0.8); Eosinophils # 0.1 10*3/uL (0.0-0.87); Eosinophils % 1.4 % (0.00-10.9); Hematocrit 32.2 VOL% (35.7-47.0); Hemoglobin 10.5 GM/DL (12.0-16.0); Immature Granulocytes % 0.4 %; Immature Granulocytes Absolute 0.04 #; Lymphocytes # 3.1 10*3/uL (1.4-4.0); Lymphocytes % 33.5 % (21.3-54.2); Mean Corpuscular HGB Conc 32.6 GM/DL (32-36); Mean Corpuscular Volume 80.1 FL (87-102); Mean Platelet Volume 11.3 FL (9.6-12.0); Monocytes % 7.5 % (1.7-12.7); Neutrophils % 56.8 % (38.7-73.9); Platelet Count 369 T/CUMM (130-400); Red Blood Count 4.02 MC/CUMM (3.8-5.5); Red Cell Distribution Width 15.2 % (9.3-17.3); White Blood Count 9.4 T/CUMM (4-12)
[2019-11-29 05:46] LABS: Calcium 9.4 MG/DL (8.5-10.1); Osmolality,Calculated 282.8 MOS/KG (273-304)
[2019-11-29 06:34] LABS: Hypochromasia 1+; Platelet Estimate Adequate
[2019-11-29] MEDS: ENOXAPARIN 40 MG/0.4 ML SYRINGE SUBCUT SCH (08:30)
[2019-11-29] MEDS: INSULIN LISPRO 100 UNIT/ML SUBCUT SCH ×4 (08:30→21:27)
[2019-11-29] MEDS: cefTRIAXone 1,000 MG in SYRINGE 1 EACH IV SCH (11:54)
[2019-11-29 12:58] LABS: Apearance,Urine CLEAR (Clear); Bilirubin,Urine Negative (Negative); Blood, Urine Small mg/dL (Negative); Glucose,Urine (UA) >=500 mg/dL (Negative); Ketones,Urine Negative (Negative); Nitrite,Urine Negative (Negative); Protein,Urine Negative; RBC,Urine 1 /HPF (0-4); Squamous Epithelial Cell,Urine Occasional /HPF (0-10); Urine Color Colorless (Yellow); Urine Urobilinogen < 2.0 EU/DL (0.2-1.0)
[2019-11-29] MEDS: INSULIN GLARGINE 100 UNIT/ML SUBCUT SCH (21:27)
[2019-11-29] MEDS: ACETAMINOPHEN 325 MG TABLET PO PRN (21:28)
[2019-11-30 05:14] LABS: Basophils % 0.4 % (0.0-0.8); Eosinophils # 0.1 10*3/uL (0.0-0.87); Eosinophils % 1.1 % (0.00-10.9); Hematocrit 28.9 VOL% (35.7-47.0); Hemoglobin 9.4 GM/DL (12.0-16.0); Immature Granulocytes % 0.6 %; Immature Granulocytes Absolute 0.05 #; Lymphocytes # 3.5 10*3/uL (1.4-4.0); Mean Corpuscular HGB Conc 32.5 GM/DL (32-36); Mean Corpuscular Volume 80.5 FL (87-102); Monocytes % 9.5 % (1.7-12.7); Neutrophils % 50.4 % (38.7-73.9); Platelet Count 338 T/CUMM (130-400); Red Blood Count 3.59 MC/CUMM (3.8-5.5); Red Cell Distribution Width 15.3 % (9.3-17.3); White Blood Count 9.1 T/CUMM (4-12)
[2019-11-30 05:33] LABS: Calcium 10.1 MG/DL (8.5-10.1); Osmolality,Calculated 282.3 MOS/KG (273-304)
[2019-11-30] MEDS ORDERED: MAGNESIUM SULF RIDER 2 GM in PREMIX 1 EACH IV ONE (08:09)
[2019-11-30] MEDS: ENOXAPARIN 40 MG/0.4 ML SYRINGE SUBCUT SCH (09:37)
[2019-11-30] MEDS: INSULIN LISPRO 100 UNIT/ML SUBCUT SCH ×4 (09:37→20:26)
[2019-11-30] MEDS: cefTRIAXone 1,000 MG in SYRINGE 1 EACH IV SCH (13:24)
[2019-11-30] MEDS ORDERED: BISACODYL 5 MG TABLET PO ONE (15:00)
[2019-11-30] MEDS: POLYETHYLENE GLYCOL POWDER 17 GM PACK PO SCH (15:35)
[2019-11-30] MEDS: INSULIN GLARGINE 100 UNIT/ML SUBCUT SCH (20:27)
[2019-11-30 21:31] LABS: Apearance,Urine CLEAR (Clear); Bilirubin,Urine Negative (Negative); Blood, Urine Negative (Negative); Glucose,Urine (UA) >=500 mg/dL (Negative); Ketones,Urine Negative (Negative); Nitrite,Urine Negative (Negative); Protein,Urine Negative; RBC,Urine 2 /HPF (0-4); Urine Color Colorless (Yellow); Urine Specific Gravity 1.014 (1.001-1.035); Urine Urobilinogen < 2.0 EU/DL (0.2-1.0); WBC,Urine 3 /HPF (0-6)
[2019-12-01] MEDS: ACETAMINOPHEN 325 MG TABLET PO PRN ×2 (01:25→17:07)
[2019-12-01 09:27] LABS: Basophils % 0.3 % (0.0-0.8); Eosinophils # 0.1 10*3/uL (0.0-0.87); Eosinophils % 1.1 % (0.00-10.9); Hematocrit 29.8 VOL% (35.7-47.0); Hemoglobin 9.3 GM/DL (12.0-16.0); Immature Granulocytes % 0.9 %; Immature Granulocytes Absolute 0.08 #; Lymphocytes # 3.9 10*3/uL (1.4-4.0); Lymphocytes % 43.5 % (21.3-54.2); Mean Corpuscular HGB Conc 31.2 GM/DL (32-36); Mean Corpuscular Volume 84.2 FL (87-102); Mean Platelet Volume 10.3 FL (9.6-12.0); Monocytes % 8.5 % (1.7-12.7); Neutrophils % 45.7 % (38.7-73.9); Platelet Count 389 T/CUMM (130-400); Red Blood Count 3.54 MC/CUMM (3.8-5.5); Red Cell Distribution Width 15.7 % (9.3-17.3)
[2019-12-01] MEDS: INSULIN LISPRO 100 UNIT/ML SUBCUT SCH ×4 (09:35→20:41)
[2019-12-01] MEDS: lisinopriL 5 MG TABLET PO SCH (09:35)
[2019-12-01] MEDS: ENOXAPARIN 40 MG/0.4 ML SYRINGE SUBCUT SCH (09:36)
[2019-12-01] MEDS: POLYETHYLENE GLYCOL POWDER 17 GM PACK PO SCH (09:36)
[2019-12-01] MEDS: MAGNESIUM SULF RIDER 2 GM in PREMIX 1 EACH IV PRN (09:38)
[2019-12-01 09:47] LABS: Hypochromasia 1+; Lymphocytes 54 % (20-55); Platelet Estimate Adequate; Segmented Neutrophils 38 % (50-85); Total Cells Counted 100
[2019-12-01 10:37] LABS: Calcium 10.4 MG/DL (8.5-10.1); Osmolality,Calculated 280.8 MOS/KG (273-304)
[2019-12-01] MEDS: cefTRIAXone 1,000 MG in SYRINGE 1 EACH IV SCH (12:06)
[2019-12-01] MEDS ORDERED: INSULIN GLARGINE 100 UNIT/ML SUBCUT SCH (21:00)
[2019-12-02 05:51] LABS: Basophils # 0.1 10*3/uL (0.0-0.2); Basophils % 0.5 % (0.0-0.8); Eosinophils # 0.1 10*3/uL (0.0-0.87); Eosinophils % 0.7 % (0.00-10.9); Hematocrit 30.4 VOL% (35.7-47.0); Hemoglobin 9.5 GM/DL (12.0-16.0); Immature Granulocytes % 1.4 %; Immature Granulocytes Absolute 0.13 #; Lymphocytes # 3.8 10*3/uL (1.4-4.0); Lymphocytes % 40.7 % (21.3-54.2); Mean Corpuscular HGB Conc 31.3 GM/DL (32-36); Mean Corpuscular Volume 83.3 FL (87-102); Mean Platelet Volume 10.4 FL (9.6-12.0); Monocytes % 9.1 % (1.7-12.7); NRBC # 0.02 10*3/uL; Neutrophils % 47.6 % (38.7-73.9); Platelet Count 414 T/CUMM (130-400); Red Blood Count 3.65 MC/CUMM (3.8-5.5); Red Cell Distribution Width 15.5 % (9.3-17.3); White Blood Count 9.4 T/CUMM (4-12)
[2019-12-02 06:18] LABS: Calcium 10.8 MG/DL (8.5-10.1)
[2019-12-02] MEDS: ENOXAPARIN 40 MG/0.4 ML SYRINGE SUBCUT SCH (08:49)
[2019-12-02] MEDS: INSULIN LISPRO 100 UNIT/ML SUBCUT SCH ×2 (08:50→08:53)
[2019-12-02] MEDS: POLYETHYLENE GLYCOL POWDER 17 GM PACK PO SCH (08:52)
[2019-12-02] MEDS: lisinopriL 5 MG TABLET PO SCH (08:52)
[2019-12-02 11:29] VITALS: BP 127/80
== END 2019-12-02 12:25 | disposition home or self-care (01) | DRG 637 ==
LOC: N.ED 19:24 → N.EDINP 21:44 → SUATTDRO 21:44 → N.CC 23:06 → N.4E 11-28 15:10
PROVIDERS: ADMIT Family Medicine; ATTEND Internal Medicine

== ENCOUNTER 2021-09-03 18:49 | Inpatient (IN) ==
[2021-09-03] MEDS ORDERED: SODIUM CHLORIDE 0.9% 1,000 ML IV STA (21:00)
[2021-09-03 21:32] LABS: Basophils # 0.1 10*3/uL (0.0-0.2); Basophils % 0.4 % (0.0-0.8); Eosinophils # 0.1 10*3/uL (0.0-0.87); Eosinophils % 0.4 % (0.00-10.9); Hematocrit 29.2 VOL% (35.7-47.0); Hemoglobin 9.2 GM/DL (12.0-16.0); Immature Granulocytes % 0.8 %; Immature Granulocytes Absolute 0.11 #; Lymphocytes # 2.6 10*3/uL (1.4-4.0); Lymphocytes % 18.4 % (21.3-54.2); Mean Corpuscular HGB Conc 31.5 GM/DL (32-36); Mean Corpuscular Volume 86.6 FL (87-102); Mean Platelet Volume 10.1 FL (9.6-12.0); Monocytes % 7.7 % (1.7-12.7); Neutrophils % 72.3 % (38.7-73.9); Platelet Count 446 T/CUMM (130-400); Red Blood Count 3.37 MC/CUMM (3.8-5.5); Red Cell Distribution Width 13.8 % (9.3-17.3); White Blood Count 13.9 T/CUMM (4-12)
[2021-09-03 21:53] LABS: Alanine Aminotransferase 13 U/L (13-56); Albumin 2.2 G/DL (3.4-5.0); Alkaline Phosphatase 174 U/L (45-117); Aspartate Amino Transferase 12 U/L (0-37); Bilirubin,Total < 0.39 MG/DL (0.20-1.00); Blood Urea Nitrogen 8 MG/DL (7-18); Calcium 11.3 MG/DL (8.5-10.1); Carbon Dioxide 23 MMOL/L (21-32); Estimated Glom Filtration Rate 135 ML/MIN; Glucose 405 MG/DL (74-106); Osmolality,Calculated 278.5 MOS/KG (273-304); Potassium 4.4 MMOL/L (3.5-5.1); Sodium 132 MMOL/L (136-145); Total Protein 8.1 G/DL (6.4-8.2)
[2021-09-03 22:12] LABS: Bacteria,Urine Many /HPF (Few); Bilirubin,Urine Negative (Negative); Blood, Urine Small mg/dL (Negative); Glucose,Urine (UA) >=500 mg/dL (Negative); Ketones,Urine 20 mg/dL (Negative); Nitrite,Urine Negative (Negative); Protein,Urine 30 MG/DL; RBC,Urine 77 /HPF (0-4); Urine Appearance CLOUDY (Clear); Urine Color Yellow (Yellow); Urine Specific Gravity 1.014 (1.001-1.035); Urine Urobilinogen < 2.0 EU/DL (<2.0)
[2021-09-03] MEDS ORDERED: PIPERACILLIN/TAZOBACTAM 3,375 MG in SODIUM CHLORIDE 0.9% 100 ML IV STA (22:26)
[2021-09-03] MEDS ORDERED: SIMETHICONE CHEW 125 MG TABLET PO PRN (22:44)
[2021-09-03] MEDS ORDERED: GLUCAGON 1 MG VIAL IM PRN ×2 (22:44→23:31)
[2021-09-03] MEDS ORDERED: ZALEPLON 5 MG CAPSULE PO PRN (22:44)
[2021-09-03] MEDS ORDERED: DEXTROSE 50% 25 GM/50 ML SYRINGE IV PRN (22:52)
[2021-09-03] MEDS ORDERED: INSULIN REGULAR 100 UNIT/ML SUBCUT STA (23:31)
[2021-09-03] MEDS ORDERED: DEXTROSE 50% 25 GM/50 ML VIAL IV PRN (23:31)
[2021-09-04] MEDS: INSULIN REGULAR 100 UNIT/ML SUBCUT SCH ×5 (00:22→21:38)
[2021-09-04] MEDS: SODIUM CHLORIDE 0.9% 1,000 ML IV SCH ×3 (00:30→21:30)
[2021-09-04] MEDS ORDERED: MAGNESIUM SULF RIDER 2 GM/50 ML PREMIX IV PRN (02:29)
[2021-09-04] MEDS ORDERED: POTASSIUM CHLORIDE RIDER 10 MEQ/100 ML PREMIX IV PRN (02:29)
[2021-09-04] MEDS ORDERED: MAGNESIUM SULF RIDER 4 GM/100 ML PREMIX IV PRN (02:29)
[2021-09-04] MEDS ORDERED: POTASSIUM CHLORIDE 20 MEQ TABLET PO PRN (02:29)
[2021-09-04 04:54] LABS: Basophils # 0.1 10*3/uL (0.0-0.2); Basophils % 0.4 % (0.0-0.8); Eosinophils # 0.1 10*3/uL (0.0-0.87); Eosinophils % 0.8 % (0.00-10.9); Hematocrit 27.8 VOL% (35.7-47.0); Hemoglobin 8.7 GM/DL (12.0-16.0); Immature Granulocytes % 1.1 %; Immature Granulocytes Absolute 0.14 #; Lymphocytes # 3.5 10*3/uL (1.4-4.0); Lymphocytes % 27.6 % (21.3-54.2); Mean Corpuscular HGB Conc 31.3 GM/DL (32-36); Mean Corpuscular Volume 86.9 FL (87-102); Mean Platelet Volume 9.9 FL (9.6-12.0); Monocytes % 10.7 % (1.7-12.7); Neutrophils % 59.4 % (38.7-73.9); Platelet Count 394 T/CUMM (130-400); Red Cell Distribution Width 13.7 % (9.3-17.3); White Blood Count 12.7 T/CUMM (4-12)
[2021-09-04] MEDS ORDERED: VANCOMYCIN INJ 1,000 MG in SODIUM CHLORIDE 0.9% 250 ML IV ONE (05:19)
[2021-09-04 05:23] LABS: Calcium 10.8 MG/DL (8.5-10.1); Osmolality,Calculated 277.7 MOS/KG (273-304); Potassium 3.2 MMOL/L (3.5-5.1); Thyroid Stimulating Hormone 0.462 uIU/ml (0.358-3.74)
[2021-09-04] MEDS ORDERED: INSULIN REGULAR 100 UNIT/ML SUBCUT SCH (07:30)
[2021-09-04] MEDS ORDERED: HYDROmorphone 2 MG/1 ML VIAL IV PRN (08:32)
[2021-09-04] MEDS: PIPERACILLIN/TAZOBACTAM 3,375 MG in SODIUM CHLORIDE 0.9% 100 ML IV SCH ×3 (08:40→23:20)
[2021-09-04] MEDS ORDERED: SODIUM CHLORIDE 0.9% 100 ML IV ONE (08:42)
[2021-09-04] MEDS ORDERED: PIPERACILLIN/TAZOBACTAM 3,375 MG VIAL IV ONE (08:42)
[2021-09-04] MEDS ORDERED: HYDROmorphone 2 MG/1 ML VIAL ONE (08:43)
[2021-09-04] MEDS: HYDROmorphone 2 MG/1 ML VIAL IV PRN (08:50)
[2021-09-04] MEDS ORDERED: LIDOCAINE 2% 5 ML VIAL ONE (08:51)
[2021-09-04] MEDS ORDERED: propofoL 200 MG/20 ML VIAL IV ONE (08:51)
[2021-09-04] MEDS ORDERED: fentaNYL 100 MCG/2 ML VIAL ONE (08:52)
[2021-09-04] MEDS ORDERED: MIDAZOLAM 2 MG/2 ML VIAL ONE (08:52)
[2021-09-04] MEDS ORDERED: BUPIVACAINE MPF 0.25% 30 ML VIAL ONE (08:54)
[2021-09-04] MEDS ORDERED: PANTOPRAZOLE 40 MG TABLET PO SCH (09:00)
[2021-09-04] MEDS ORDERED: SODIUM CHLORIDE 0.9% 1,000 ML IV ONE (09:48)
[2021-09-04] MEDS ORDERED: PHENYLEPHRINE 1 MG/10 ML SYRINGE IV ONE (09:48)
[2021-09-04] MEDS ORDERED: ONDANSETRON 4 MG/2 ML VIAL ONE (09:48)
[2021-09-04] MEDS: DOCUSATE SODIUM 100 MG CAPSULE PO SCH ×2 (12:59→21:37)
[2021-09-04] MEDS ORDERED: DEXTROSE 50% 25 GM/50 ML VIAL IV PRN (14:17)
[2021-09-04] MEDS ORDERED: GLUCAGON 1 MG VIAL IM PRN (14:17)
[2021-09-05] MEDS: INSULIN REGULAR 100 UNIT/ML SUBCUT SCH ×3 (01:10→09:01)
[2021-09-05 05:51] LABS: Basophils # 0.1 10*3/uL (0.0-0.2); Basophils % 0.6 % (0.0-0.8); Eosinophils # 0.1 10*3/uL (0.0-0.87); Eosinophils % 1.3 % (0.00-10.9); Hematocrit 30.4 VOL% (35.7-47.0); Hemoglobin 9.1 GM/DL (12.0-16.0); Immature Granulocytes % 1.5 %; Immature Granulocytes Absolute 0.15 #; Lymphocytes # 3.5 10*3/uL (1.4-4.0); Lymphocytes % 35.6 % (21.3-54.2); Mean Corpuscular HGB Conc 29.9 GM/DL (32-36); Mean Corpuscular Volume 89.4 FL (87-102); Monocytes % 7.4 % (1.7-12.7); Neutrophils % 53.6 % (38.7-73.9); Platelet Count 407 T/CUMM (130-400); Red Cell Distribution Width 14.1 % (9.3-17.3); White Blood Count 9.9 T/CUMM (4-12)
[2021-09-05 06:04] LABS: Osmolality,Calculated 281.7 MOS/KG (273-304); Potassium 4.1 MMOL/L (3.5-5.1)
[2021-09-05 06:08] LABS: Ferritin 91.7 ng/mL (8-252)
[2021-09-05 06:56] LABS: Band Neutrophils 3 % (0-10); Eosinophils 3 % (0-10); Hypochromasia 1+; Lymphocytes 29 % (20-55); Segmented Neutrophils 57 % (50-85); Total Cells Counted 100
[2021-09-05 06:57] LABS: Microcytosis Slight
[2021-09-05] MEDS: SODIUM CHLORIDE 0.9% 1,000 ML IV SCH ×3 (07:34→15:50)
[2021-09-05] MEDS ORDERED: MAGNESIUM SULF RIDER 4 GM/100 ML PREMIX IV ONE (08:30)
[2021-09-05] MEDS: HYDROmorphone 2 MG/1 ML VIAL IV PRN (08:55)
[2021-09-05] MEDS: DOCUSATE SODIUM 100 MG CAPSULE PO SCH ×2 (09:06→21:27)
[2021-09-05] MEDS: PIPERACILLIN/TAZOBACTAM 3,375 MG in SODIUM CHLORIDE 0.9% 100 ML IV SCH ×3 (09:08→23:58)
[2021-09-05] MEDS ORDERED: SODIUM HYPOCHLORITE 0.25% IRRIG 473 ML BOTTLE TOP PRN (09:22)
[2021-09-05] MEDS: INSULIN LISPRO 100 UNIT/ML SUBCUT SCH ×5 (11:59→21:27)
[2021-09-05] MEDS: INSULIN GLARGINE 100 UNIT/ML SUBCUT SCH (11:59)
[2021-09-05] MEDS: VANCOMYCIN INJ 750 MG in SODIUM CHLORIDE 0.9% 250 ML IV SCH (21:27)
[2021-09-06] MEDS: INSULIN LISPRO 100 UNIT/ML SUBCUT SCH ×7 (08:07→20:49)
[2021-09-06] MEDS: SODIUM CHLORIDE 0.9% 1,000 ML IV SCH ×2 (08:07→08:23)
[2021-09-06] MEDS: PIPERACILLIN/TAZOBACTAM 3,375 MG in SODIUM CHLORIDE 0.9% 100 ML IV SCH (08:20)
[2021-09-06] MEDS: DOCUSATE SODIUM 100 MG CAPSULE PO SCH ×2 (08:21→20:36)
[2021-09-06 08:53] LABS: Basophils # 0.1 10*3/uL (0.0-0.2); Basophils % 0.7 % (0.0-0.8); Eosinophils # 0.1 10*3/uL (0.0-0.87); Eosinophils % 1.3 % (0.00-10.9); Hematocrit 30.2 VOL% (35.7-47.0); Hemoglobin 9.3 GM/DL (12.0-16.0); Immature Granulocytes % 1.4 %; Immature Granulocytes Absolute 0.12 #; Lymphocytes # 3.8 10*3/uL (1.4-4.0); Lymphocytes % 46.2 % (21.3-54.2); Mean Corpuscular HGB Conc 30.8 GM/DL (32-36); Mean Corpuscular Volume 88.3 FL (87-102); Mean Platelet Volume 10.1 FL (9.6-12.0); Neutrophils % 43.4 % (38.7-73.9); Platelet Count 434 T/CUMM (130-400); Red Blood Count 3.42 MC/CUMM (3.8-5.5); Red Cell Distribution Width 14.3 % (9.3-17.3); White Blood Count 8.3 T/CUMM (4-12)
[2021-09-06] MEDS ORDERED: NITROFURANTOIN MACRO/MONO 100 MG CAPSULE PO SCH (09:00)
[2021-09-06 09:10] LABS: Calcium 9.7 MG/DL (8.5-10.1); Osmolality,Calculated 282.8 MOS/KG (273-304); Potassium 3.9 MMOL/L (3.5-5.1)
[2021-09-06] MEDS: INSULIN GLARGINE 100 UNIT/ML SUBCUT SCH (10:27)
[2021-09-06] MEDS: VANCOMYCIN INJ 750 MG in SODIUM CHLORIDE 0.9% 250 ML IV SCH (12:11)
[2021-09-06] MEDS: HYDROmorphone 2 MG/1 ML VIAL IV PRN (12:45)
[2021-09-06] MEDS: cephALEXin 500 MG CAPSULE PO SCH (17:09)
[2021-09-06] MEDS: ONDANSETRON 4 MG/2 ML VIAL IV PRN (20:36)
[2021-09-07] MEDS: ONDANSETRON 4 MG/2 ML VIAL IV PRN ×2 (02:12→13:13)
[2021-09-07] MEDS: INSULIN LISPRO 100 UNIT/ML SUBCUT SCH ×5 (07:26→13:13)
[2021-09-07] MEDS: cephALEXin 500 MG CAPSULE PO SCH ×2 (08:18→13:13)
[2021-09-07] MEDS: INSULIN GLARGINE 100 UNIT/ML SUBCUT SCH (08:18)
[2021-09-07] MEDS: DOCUSATE SODIUM 100 MG CAPSULE PO SCH (08:19)
[2021-09-07 11:58] VITALS: BP 124/85
[2021-09-07 13:25] LABS: Basophils % 0.5 % (0.0-0.8); Eosinophils # 0.2 10*3/uL (0.0-0.87); Eosinophils % 2.6 % (0.00-10.9); Hematocrit 29.2 VOL% (35.7-47.0); Immature Granulocytes % 1.6 %; Immature Granulocytes Absolute 0.12 #; Lymphocytes # 2.9 10*3/uL (1.4-4.0); Mean Corpuscular HGB Conc 30.8 GM/DL (32-36); Mean Corpuscular Volume 88.8 FL (87-102); Mean Platelet Volume 10.1 FL (9.6-12.0); Monocytes % 7.6 % (1.7-12.7); Neutrophils % 49.7 % (38.7-73.9); Platelet Count 440 T/CUMM (130-400); Red Blood Count 3.29 MC/CUMM (3.8-5.5); Red Cell Distribution Width 14.5 % (9.3-17.3); White Blood Count 7.7 T/CUMM (4-12)
[2021-09-07 13:41] LABS: Calcium 10.4 MG/DL (8.5-10.1); Osmolality,Calculated 279.1 MOS/KG (273-304); Potassium 3.9 MMOL/L (3.5-5.1)
== END 2021-09-07 15:15 | disposition home or self-care (01) | DRG 988 ==
LOC: N.ED 18:49 → N.EDINP 18:49 → SUATTDRO 09-04 09:32 → N.3E 09-04 10:02
PROVIDERS: ADMIT Internal Medicine; ATTEND Internal Medicine

== ENCOUNTER 2022-01-02 23:42 | Inpatient (IN) ==
[2022-01-03 00:33] LABS: Basophils # 0.2 10*3/uL (0.0-0.2); Basophils % 1.4 % (0.0-0.8); Eosinophils % 0.3 % (0.00-10.9); Hemoglobin 13.4 GM/DL (12.0-16.0); Immature Granulocytes % 3.8 %; Immature Granulocytes Absolute 0.42 #; Lymphocytes # 2.8 10*3/uL (1.4-4.0); Lymphocytes % 25.5 % (21.3-54.2); Mean Corpuscular HGB Conc 30.5 GM/DL (32-36); Mean Corpuscular Volume 88.5 FL (87-102); Mean Platelet Volume 10.4 FL (9.6-12.0); Monocytes # 0.5 10*3/uL (0.11-0.8); Monocytes % 4.2 % (1.7-12.7); Neutrophils % 64.8 % (38.7-73.9); Platelet Count 365 T/CUMM (130-400); Red Blood Count 4.97 MC/CUMM (3.8-5.5); Red Cell Distribution Width 14.3 % (9.3-17.3); White Blood Count 11.1 T/CUMM (4-12)
[2022-01-03 00:48] LABS: Calcium 11.3 MG/DL (8.5-10.1); Osmolality,Calculated 291.1 MOS/KG (273-304); Potassium 4.7 MMOL/L (3.5-5.1)
[2022-01-03] MEDS ORDERED: SODIUM CHLORIDE 0.9% 1,000 ML IV STA ×2 (01:05→01:33)
[2022-01-03] MEDS ORDERED: INSULIN REGULAR 100 UNIT/ML IV STA (01:05)
[2022-01-03 01:19] LABS: Mucus,Urine Occasional /LPF (Occasional); Squamous Epithelial Cell,Urine Occasional /HPF (0-10)
[2022-01-03 01:21] LABS: Bilirubin,Urine Negative (Negative); Blood, Urine Trace mg/dL (Negative); Glucose,Urine (UA) 500 mg/dL (Negative); Ketones,Urine >160 mg/dL (Negative); Nitrite,Urine Negative (Negative); Protein,Urine 30 mg/dL (Negative); Urine Appearance Clear (Clear); Urine Color Yellow (Yellow); Urine Specific Gravity 1.015 (1.001-1.035); Urine Urobilinogen 0.2 eU/dL (<2.0); Urine pH 5.5 (4.5-8.0)
[2022-01-03 01:28] LABS: ABG Base Excess -16.6 MMOL/L (-2.5-2.5); ABG HCO3 12.1 MMOL/L (20-26); ABG Oxygen Saturation 98.4 % (95-100); ABG PH 7.288 (7.35-7.45); ABG TCO2 7.8 MMOL/L (23-27)
[2022-01-03 01:35] LABS: ABG PCO2 18.1 MM HG (35-48)
[2022-01-03 01:37] LABS: Albumin 2.1 G/DL (3.4-5.0); Bilirubin,Total 0.4 MG/DL (0.20-1.00); Calcium 11.9 MG/DL (8.5-10.1); Osmolality,Calculated 291.2 MOS/KG (273-304); Potassium 4.7 MMOL/L (3.5-5.1); Total Protein 8.3 G/DL (6.4-8.2)
[2022-01-03] MEDS ORDERED: DEXTROSE 10% 250 ML BAG IV PRN ×2 (02:03)
[2022-01-03] MEDS ORDERED: MAGNESIUM SULF RIDER 4 GM/100 ML PREMIX IV PRN (02:03)
[2022-01-03] MEDS ORDERED: INSULIN REGULAR 100 UNIT/ML IV ONE (02:03)
[2022-01-03] MEDS ORDERED: SODIUM CHLORIDE 0.9% IV PRN (02:03)
[2022-01-03] MEDS ORDERED: SODIUM PHOSPHATE IV PRN (02:03)
[2022-01-03] MEDS ORDERED: MAGNESIUM SULF RIDER 2 GM/50 ML PREMIX IV PRN (02:03)
[2022-01-03 03:30] LABS: Basophils # 0.1 10*3/uL (0.0-0.2); Eosinophils % 0.3 % (0.00-10.9); Hematocrit 39.4 VOL% (35.7-47.0); Immature Granulocytes Absolute 0.44 #; Lymphocytes # 3.6 10*3/uL (1.4-4.0); Lymphocytes % 32.3 % (21.3-54.2); Mean Corpuscular HGB Conc 30.5 GM/DL (32-36); Mean Corpuscular Volume 88.3 FL (87-102); Mean Platelet Volume 10.3 FL (9.6-12.0); Monocytes # 0.7 10*3/uL (0.11-0.8); Monocytes % 5.9 % (1.7-12.7); Neutrophils % 56.5 % (38.7-73.9); Platelet Count 403 T/CUMM (130-400); Red Blood Count 4.46 MC/CUMM (3.8-5.5); Red Cell Distribution Width 14.2 % (9.3-17.3); White Blood Count 11.1 T/CUMM (4-12)
[2022-01-03] MEDS: INSULIN REGULAR DRIP 100 ML IV SCH (03:47)
[2022-01-03] MEDS: SODIUM CHLORIDE 0.9% 1,000 ML IV SCH ×2 (03:47→05:55)
[2022-01-03 03:57] LABS: Calcium 10.7 MG/DL (8.5-10.1); Osmolality,Calculated 290.5 MOS/KG (273-304); Potassium 3.4 MMOL/L (3.5-5.1)
[2022-01-03] MEDS: cefTRIAXone 1,000 MG in SODIUM CHLORIDE 0.9% 100 ML IV SCH (05:55)
[2022-01-03 06:03] LABS: ABG Base Excess -10.1 MMOL/L (-2.5-2.5); ABG HCO3 16.4 MMOL/L (20-26); ABG Oxygen Saturation 97.7 % (95-100); ABG PCO2 31.3 MM HG (35-48); ABG PH 7.299 (7.35-7.45); ABG TCO2 13.9 MMOL/L (23-27)
[2022-01-03] MEDS ORDERED: DEXTROSE 5% NACL 0.9% 1,000 ML IV SCH (06:06)
[2022-01-03] MEDS: DEXTROSE 5% NACL 0.9% 1,000 ML IV SCH ×2 (06:24→15:52)
[2022-01-03] MEDS ORDERED: SODIUM CHLORIDE 0.9% 1,000 ML IV SCH (07:30)
[2022-01-03] MEDS ORDERED: POTASSIUM PHOSPHATE 30 MMOL in SODIUM CHLORIDE 0.9% 250 ML IV ONE (08:00)
[2022-01-03] MEDS ORDERED: MAGNESIUM SULF RIDER 2 GM/50 ML PREMIX IV ONE (08:30)
[2022-01-03] MEDS ORDERED: ONDANSETRON 4 MG/2 ML VIAL IV PRN (08:58)
[2022-01-03 09:01] LABS: Calcium 9.9 MG/DL (8.5-10.1); Osmolality,Calculated 280.5 MOS/KG (273-304); Potassium 3.1 MMOL/L (3.5-5.1)
[2022-01-03] MEDS: INSULIN GLARGINE 100 UNIT/ML SUBCUT SCH (12:57)
[2022-01-03 16:33] LABS: Calcium 9.4 MG/DL (8.5-10.1); Osmolality,Calculated 283.3 MOS/KG (273-304); Potassium 3.7 MMOL/L (3.5-5.1)
[2022-01-03 18:22] VITALS: BP 127/95
[2022-01-03 19:19] LABS: Osmolality,Calculated 280.1 MOS/KG (273-304); Potassium 3.4 MMOL/L (3.5-5.1)
[2022-01-03] MEDS ORDERED: GLUCAGON 1 MG VIAL IM PRN (19:26)
[2022-01-03] MEDS ORDERED: SODIUM CHLORIDE 0.45% 1,000 ML IV SCH (19:30)
[2022-01-03] MEDS: INSULIN REGULAR 100 UNIT/ML SUBCUT SCH ×2 (19:33→22:02)
[2022-01-03] MEDS: POTASSIUM CHLORIDE RIDER 10 MEQ/100 ML PREMIX IV PRN ×3 (20:00→22:23)
[2022-01-03 21:34] LABS: Bilirubin,Urine Negative (Negative); Glucose,Urine (UA) >=1000 mg/dL (Negative); Ketones,Urine >=160 mg/dL (Negative); Nitrite,Urine Negative (Negative); Protein,Urine 30 mg/dL (Negative); Urine Appearance CLOUDY (Clear); Urine Color Yellow (Yellow); Urine pH 5.5 (4.5-8.0)
[2022-01-03 21:35] LABS: Blood, Urine Trace mg/dL (Negative); RBC,Urine 5 /HPF (0-4); Urine Urobilinogen 0.2 eU/dL (<2.0)
[2022-01-03] MEDS ORDERED: hydroCHLOROthiazide 12.5 MG CAPSULE PO ONE (22:35)
[2022-01-03] MEDS ORDERED: lisinopriL 10 MG TABLET PO ONE (23:00)
[2022-01-04] MEDS: INSULIN REGULAR 100 UNIT/ML SUBCUT SCH ×4 (00:39→12:03)
[2022-01-04] MEDS: DEXTROSE 5% NACL 0.9% 1,000 ML IV SCH (02:39)
[2022-01-04] MEDS: INSULIN REGULAR DRIP 100 ML IV SCH (02:42)
[2022-01-04 03:49] LABS: Basophils # 0.1 10*3/uL (0.0-0.2); Basophils % 0.7 % (0.0-0.8); Eosinophils # 0.1 10*3/uL (0.0-0.87); Eosinophils % 0.8 % (0.00-10.9); Hematocrit 34.3 VOL% (35.7-47.0); Hemoglobin 10.6 GM/DL (12.0-16.0); Immature Granulocytes % 2.3 %; Immature Granulocytes Absolute 0.25 #; Lymphocytes % 27.7 % (21.3-54.2); Mean Corpuscular HGB Conc 30.9 GM/DL (32-36); Mean Corpuscular Volume 87.5 FL (87-102); Monocytes # 0.8 10*3/uL (0.11-0.8); Monocytes % 7.6 % (1.7-12.7); Neutrophils % 60.9 % (38.7-73.9); Platelet Count 361 T/CUMM (130-400); Red Blood Count 3.92 MC/CUMM (3.8-5.5); Red Cell Distribution Width 14.4 % (9.3-17.3); White Blood Count 10.7 T/CUMM (4-12)
[2022-01-04] MEDS: cefTRIAXone 1,000 MG in SODIUM CHLORIDE 0.9% 100 ML IV SCH (03:59)
[2022-01-04 04:02] LABS: Calcium 9.7 MG/DL (8.5-10.1); Osmolality,Calculated 283.4 MOS/KG (273-304); Potassium 3.6 MMOL/L (3.5-5.1)
[2022-01-04] MEDS: POTASSIUM CHLORIDE RIDER 10 MEQ/100 ML PREMIX IV PRN ×2 (04:55→05:56)
[2022-01-04] MEDS ORDERED: POLYVINYL ALCOHOL 1.4% OPH SOLN 15 ML BOTTLE BOTH EYES PRN (07:53)
[2022-01-04] MEDS ORDERED: TOBRAMYCIN/DEXAMETHASONE 0.3%-0.1% OPH SUSP 2.5 ML BOTTLE BOTH EYES PRN (08:00)
[2022-01-04] MEDS: INSULIN GLARGINE 100 UNIT/ML SUBCUT SCH (08:11)
[2022-01-04] MEDS: CHOLESTYRAMINE 4 GM PACK PO SCH ×2 (08:12→08:15)
[2022-01-04] MEDS ORDERED: CHOLESTYRAMINE 4 GM PACK PO PRN (08:16)
[2022-01-04] MEDS ORDERED: ATORVASTATIN 10 MG TABLET PO SCH (09:00)
== END 2022-01-04 14:05 | disposition home or self-care (01) | DRG 638 ==
LOC: EDBD → EDUNIT# → N.ED 23:42 → N.EDINP 01-03 02:03 → N.ICU 01-03 17:49
PROVIDERS: ADMIT Internal Medicine; ATTEND Internal Medicine

== ENCOUNTER 2022-06-21 06:40 | Inpatient (IN) ==
[2022-06-21] MEDS ORDERED: SODIUM CHLORIDE 0.9% 1,000 ML IV STA (07:19)
[2022-06-21 08:04] LABS: Basophils # 0.2 10*3/uL (0.0-0.2); Basophils % 0.7 % (0.0-0.8); Eosinophils % 0.1 % (0.00-10.9); Hematocrit 30.2 VOL% (35.7-47.0); Hemoglobin 9.1 GM/DL (12.0-16.0); Immature Granulocytes % 2.6 %; Lymphocytes # 2.2 10*3/uL (1.4-4.0); Lymphocytes % 7.8 % (21.3-54.2); Mean Corpuscular HGB Conc 30.1 GM/DL (32-36); Mean Corpuscular Volume 87.8 FL (87-102); Mean Platelet Volume 10.5 FL (9.6-12.0); Monocytes # 1.6 10*3/uL (0.11-0.8); Monocytes % 5.8 % (1.7-12.7); Platelet Count 568 T/CUMM (130-400); Red Blood Count 3.44 MC/CUMM (3.8-5.5); Red Cell Distribution Width 14.5 % (9.3-17.3); White Blood Count 27.4 T/CUMM (4-12)
[2022-06-21 08:22] LABS: Band Neutrophils 1 % (0-10); Eosinophils 1 % (0-10); Lymphocytes 10 % (20-55); Nucleated Red Blood Cells 1 /100 WBC (0-5); Platelet Estimate Increased; Total Cells Counted 100
[2022-06-21 08:23] LABS: Hypochromia Slight; Microcytosis Slight
[2022-06-21 08:48] LABS: Bacteria,Urine Occasional /HPF (Few); Bilirubin,Urine Negative (Negative); Blood, Urine Small mg/dL (Negative); Glucose,Urine (UA) 500 mg/dL (Negative); Ketones,Urine 80 mg/dL (Negative); Mucus,Urine Occasional /LPF (Occasional); Nitrite,Urine Negative (Negative); Protein,Urine 100 mg/dL (Negative); RBC,Urine 31 /HPF (0-4); Squamous Epithelial Cell,Urine Occasional /HPF (0-10); Urine Appearance Slightly Hazy (Clear); Urine Color Yellow (Yellow); Urine Specific Gravity 1.015 (1.001-1.035); Urine Urobilinogen 0.2 eU/dL (<2.0); Urine pH 5.5 (4.5-8.0)
[2022-06-21 09:04] LABS: Alanine Aminotransferase < 9 U/L (13-56); Alkaline Phosphatase 205 U/L (45-117); Aspartate Amino Transferase 12 U/L (0-37); Blood Urea Nitrogen 24 MG/DL (7-18); Calcium 11.7 MG/DL (8.5-10.1); Carbon Dioxide 19 MMOL/L (21-32); Chloride 95 MMOL/L (98-107); Glucose 348 MG/DL (74-106); Osmolality,Calculated 281.5 MOS/KG (273-304); Potassium 4.9 MMOL/L (3.5-5.1); Sodium 132 MMOL/L (136-145); Total Protein 7.9 G/DL (6.4-8.2)
[2022-06-21 09:05] LABS: Albumin 1.2 G/DL (3.4-5.0)
[2022-06-21] MEDS ORDERED: cefTRIAXone 1,000 MG in SODIUM CHLORIDE 0.9% 100 ML IV STA (09:48)
[2022-06-21 10:41] LABS: Arterial Base Excess iSTAT -7 MMOL/L (-2.5-2.5); Arterial Bicarbonate iSTAT 18.3 MMOL/L (20-26); Arterial O2 Saturation iSTAT 84 % (95-100); Arterial PCO2 iSTAT 33 MM HG (35-48); Arterial PO2 iSTAT 51 MM HG (80-95); Arterial Total CO2 iSTAT 19 MMO/L (23-27); Arterial pH iSTAT 7.353 (7.35-7.45)
[2022-06-21] MEDS ORDERED: DEXTROSE 10% 250 ML BAG IV PRN (11:59)
[2022-06-21] MEDS ORDERED: ONDANSETRON 4 MG/2 ML VIAL IV PRN (11:59)
[2022-06-21] MEDS ORDERED: GLUCAGON 1 MG VIAL IM PRN ×2 (11:59)
[2022-06-21] MEDS ORDERED: cefTRIAXone 1,000 MG in SODIUM CHLORIDE 0.9% 100 ML IV SCH (12:00)
[2022-06-21] MEDS ORDERED: DEXTROSE 50% 25 GM/50 ML SYRINGE IV PRN (12:07)
[2022-06-21] MEDS: ENOXAPARIN 30 MG/0.3 ML SYRINGE SUBCUT SCH (13:30)
[2022-06-21] MEDS: AZITHROMYCIN INJ 500 MG in SODIUM CHLORIDE 0.9% 250 ML IV SCH (13:30)
[2022-06-21] MEDS ORDERED: ALBUTEROL/IPRATROPIUM 3 ML NEB RESP TX PRN (15:15)
[2022-06-21] MEDS: INSULIN LISPRO 100 UNIT/ML SUBCUT SCH ×2 (16:52→20:55)
[2022-06-21] MEDS: SODIUM CHLORIDE 0.9% 1,000 ML IV SCH (16:53)
[2022-06-21] MEDS ORDERED: SODIUM CHLORIDE 0.9% 1,000 ML IV ONE (17:56)
[2022-06-21] MEDS ORDERED: INSULIN GLARGINE 100 UNIT/ML SUBCUT ONE (18:00)
[2022-06-21] MEDS ORDERED: FLUCONAZOLE 100 MG TABLET PO ONE (18:22)
[2022-06-22 05:06] LABS: Basophils # 0.1 10*3/uL (0.0-0.2); Basophils % 0.3 % (0.0-0.8); Eosinophils # 0.1 10*3/uL (0.0-0.87); Eosinophils % 0.3 % (0.00-10.9); Hematocrit 27.3 VOL% (35.7-47.0); Hemoglobin 8.5 GM/DL (12.0-16.0); Immature Granulocytes % 2.3 %; Immature Granulocytes Absolute 0.59 #; Lymphocytes # 2.3 10*3/uL (1.4-4.0); Lymphocytes % 9.2 % (21.3-54.2); Mean Corpuscular HGB Conc 31.1 GM/DL (32-36); Mean Corpuscular Volume 85.8 FL (87-102); Mean Platelet Volume 10.6 FL (9.6-12.0); Monocytes # 1.4 10*3/uL (0.11-0.8); Monocytes % 5.6 % (1.7-12.7); Neutrophils % 82.3 % (38.7-73.9); Platelet Count 569 T/CUMM (130-400); Red Blood Count 3.18 MC/CUMM (3.8-5.5); Red Cell Distribution Width 14.1 % (9.3-17.3); White Blood Count 25.4 T/CUMM (4-12)
[2022-06-22 05:21] LABS: Calcium 10.9 MG/DL (8.5-10.1); Osmolality,Calculated 277.5 MOS/KG (273-304); Potassium 3.9 MMOL/L (3.5-5.1)
[2022-06-22 05:44] LABS: Band Neutrophils 5 % (0-10); Hypochromia 1+; Lymphocytes 12 % (20-55); Total Cells Counted 100
[2022-06-22 05:45] LABS: Microcytosis Slight; Target Cells Slight
[2022-06-22] MEDS: ACETAMINOPHEN 325 MG TABLET PO PRN (06:09)
[2022-06-22] MEDS ORDERED: VANCOMYCIN INJ 750 MG in SODIUM CHLORIDE 0.9% 250 ML IV ONE (08:09)
[2022-06-22] MEDS ORDERED: INSULIN GLARGINE 100 UNIT/ML SUBCUT SCH (09:00)
[2022-06-22] MEDS: CEFEPIME 1,000 MG in SODIUM CHLORIDE 0.9% 100 ML IV SCH ×3 (09:15→21:41)
[2022-06-22] MEDS: INSULIN GLARGINE 100 UNIT/ML SUBCUT SCH (09:15)
[2022-06-22] MEDS: INSULIN LISPRO 100 UNIT/ML SUBCUT SCH ×6 (09:16→21:45)
[2022-06-22] MEDS: VANCOMYCIN INJ 750 MG in SODIUM CHLORIDE 0.9% 250 ML IV SCH ×2 (09:59→17:00)
[2022-06-22] MEDS: AZITHROMYCIN INJ 500 MG in SODIUM CHLORIDE 0.9% 250 ML IV SCH (14:00)
[2022-06-22] MEDS: ENOXAPARIN 30 MG/0.3 ML SYRINGE SUBCUT SCH (14:00)
[2022-06-22] MEDS: SODIUM CHLORIDE 0.9% 1,000 ML IV SCH (21:41)
[2022-06-22] MEDS: SIMVASTATIN 10 MG TABLET PO SCH (21:42)
[2022-06-23] MEDS: VANCOMYCIN INJ 750 MG in SODIUM CHLORIDE 0.9% 250 ML IV SCH ×3 (01:39→17:33)
[2022-06-23] MEDS: CEFEPIME 1,000 MG in SODIUM CHLORIDE 0.9% 100 ML IV SCH ×2 (02:57→08:21)
[2022-06-23] MEDS: ACETAMINOPHEN 325 MG TABLET PO PRN ×2 (02:58→17:32)
[2022-06-23 05:38] LABS: Basophils # 0.1 10*3/uL (0.0-0.2); Basophils % 0.3 % (0.0-0.8); Eosinophils # 0.1 10*3/uL (0.0-0.87); Eosinophils % 0.4 % (0.00-10.9); Hematocrit 28.3 VOL% (35.7-47.0); Hemoglobin 8.8 GM/DL (12.0-16.0); Immature Granulocytes Absolute 0.87 #; Lymphocytes # 2.5 10*3/uL (1.4-4.0); Lymphocytes % 11.5 % (21.3-54.2); Mean Corpuscular HGB Conc 31.1 GM/DL (32-36); Mean Platelet Volume 10.1 FL (9.6-12.0); Monocytes # 1.4 10*3/uL (0.11-0.8); Monocytes % 6.4 % (1.7-12.7); Neutrophils % 77.4 % (38.7-73.9); Platelet Count 514 T/CUMM (130-400); Red Blood Count 3.33 MC/CUMM (3.8-5.5); White Blood Count 21.8 T/CUMM (4-12)
[2022-06-23 06:06] LABS: Calcium 10.1 MG/DL (8.5-10.1); Potassium 3.2 MMOL/L (3.5-5.1)
[2022-06-23 07:13] LABS: Band Neutrophils 6 % (0-10); Eosinophils 1 % (0-10); Hypochromia 1+; Lymphocytes 16 % (20-55); Microcytosis Slight; Total Cells Counted 100
[2022-06-23] MEDS ORDERED: POTASSIUM CHLORIDE 20 MEQ TABLET PO ONE (07:55)
[2022-06-23] MEDS ORDERED: MAGNESIUM SULF RIDER 2 GM/50 ML PREMIX IV ONE ×2 (07:55→10:14)
[2022-06-23] MEDS ORDERED: SODIUM CHLOR 0.9% KCL 20 MEQ 20 MEQ/1,000 ML BAG IV SCH (08:00)
[2022-06-23] MEDS ORDERED: FLUCONAZOLE 200 MG TABLET PO ONE (08:11)
[2022-06-23] MEDS: INSULIN LISPRO 100 UNIT/ML SUBCUT SCH ×7 (08:20→22:05)
[2022-06-23] MEDS: INSULIN GLARGINE 100 UNIT/ML SUBCUT SCH (08:28)
[2022-06-23] MEDS: LISINOPRIL/HCTZ 10-12.5 MG TABLET PO SCH (08:29)
[2022-06-23] MEDS: carvediloL 6.25 MG TABLET PO SCH ×2 (11:59→22:05)
[2022-06-23] MEDS ORDERED: LEVOFLOXACIN INJ 750 MG/150 ML PREMIX IV SCH (12:00)
[2022-06-23] MEDS: ENOXAPARIN 30 MG/0.3 ML SYRINGE SUBCUT SCH (12:01)
[2022-06-23] MEDS: SIMVASTATIN 10 MG TABLET PO SCH (22:04)
[2022-06-24] MEDS ORDERED: MAGNESIUM SULF RIDER 4 GM/100 ML PREMIX IV PRN (00:01)
[2022-06-24] MEDS ORDERED: MAGNESIUM SULF RIDER 2 GM/50 ML PREMIX IV PRN (00:01)
[2022-06-24 05:48] LABS: Calcium 10.2 MG/DL (8.5-10.1); Osmolality,Calculated 281.7 MOS/KG (273-304)
[2022-06-24 05:53] LABS: Basophils # 0.1 10*3/uL (0.0-0.2); Basophils % 0.4 % (0.0-0.8); Eosinophils % 0.3 % (0.00-10.9); Hematocrit 24.9 VOL% (35.7-47.0); Hemoglobin 7.7 GM/DL (12.0-16.0); Immature Granulocytes % 5.6 %; Immature Granulocytes Absolute 0.87 #; Lymphocytes % 12.5 % (21.3-54.2); Mean Corpuscular HGB Conc 30.9 GM/DL (32-36); Mean Corpuscular Volume 85.6 FL (87-102); Mean Platelet Volume 10.4 FL (9.6-12.0); Monocytes # 0.9 10*3/uL (0.11-0.8); Monocytes % 5.9 % (1.7-12.7); Neutrophils % 75.3 % (38.7-73.9); Platelet Count 526 T/CUMM (130-400); Red Blood Count 2.91 MC/CUMM (3.8-5.5); Red Cell Distribution Width 14.1 % (9.3-17.3); White Blood Count 15.7 T/CUMM (4-12)
[2022-06-24 05:58] LABS: Band Neutrophils 5 % (0-10); Hypochromia Slight; Lymphocytes 11 % (20-55); Microcytosis Slight; Platelet Estimate Adequate; Total Cells Counted 100
[2022-06-24] MEDS ORDERED: VANCOMYCIN INJ 750 MG in SODIUM CHLORIDE 0.9% 250 ML IV SCH (06:00)
[2022-06-24] MEDS ORDERED: carvediloL 6.25 MG TABLET PO SCH (08:00)
[2022-06-24] MEDS ORDERED: FUROSEMIDE 20 MG/2 ML VIAL IV ONE (08:15)
[2022-06-24] MEDS ORDERED: INSULIN GLARGINE 100 UNIT/ML SUBCUT ONE (08:19)
[2022-06-24] MEDS: LISINOPRIL/HCTZ 10-12.5 MG TABLET PO SCH (09:19)
[2022-06-24] MEDS: INSULIN GLARGINE 100 UNIT/ML SUBCUT SCH (09:20)
[2022-06-24] MEDS: INSULIN LISPRO 100 UNIT/ML SUBCUT SCH ×7 (09:21→21:29)
[2022-06-24] MEDS: carvediloL 12.5 MG TABLET PO SCH ×2 (09:27→17:20)
[2022-06-24] MEDS: ceFAZolin 2,000 MG/50 ML DUPLEX IV SCH ×2 (09:36→16:21)
[2022-06-24] MEDS ORDERED: DOCUSATE SODIUM 100 MG CAPSULE PO SCH (09:43)
[2022-06-24] MEDS: DOCUSATE SODIUM 100 MG CAPSULE PO SCH ×2 (09:57→21:29)
[2022-06-24] MEDS ORDERED: POLYETHYLENE GLYCOL POWDER 17 GM PACK PO SCH (10:00)
[2022-06-24] MEDS: ENOXAPARIN 30 MG/0.3 ML SYRINGE SUBCUT SCH (11:40)
[2022-06-24] MEDS: ACETAMINOPHEN 325 MG TABLET PO PRN (17:20)
[2022-06-24] MEDS: SIMVASTATIN 10 MG TABLET PO SCH (21:29)
[2022-06-25] MEDS: ceFAZolin 2,000 MG/50 ML DUPLEX IV SCH ×3 (01:32→17:43)
[2022-06-25] MEDS ORDERED: LISINOPRIL/HCTZ 10-12.5 MG TABLET PO ONE (04:31)
[2022-06-25 05:22] LABS: Basophils # 0.1 10*3/uL (0.0-0.2); Basophils % 0.7 % (0.0-0.8); Eosinophils # 0.1 10*3/uL (0.0-0.87); Eosinophils % 0.8 % (0.00-10.9); Hematocrit 23.9 VOL% (35.7-47.0); Hemoglobin 7.5 GM/DL (12.0-16.0); Immature Granulocytes Absolute 1.58 #; Lymphocytes # 3.2 10*3/uL (1.4-4.0); Lymphocytes % 18.2 % (21.3-54.2); Mean Corpuscular HGB Conc 31.4 GM/DL (32-36); Mean Corpuscular Volume 86.6 FL (87-102); Mean Platelet Volume 10.4 FL (9.6-12.0); Monocytes # 1.2 10*3/uL (0.11-0.8); Neutrophils % 64.3 % (38.7-73.9); Platelet Count 527 T/CUMM (130-400); Red Blood Count 2.76 MC/CUMM (3.8-5.5); Red Cell Distribution Width 14.5 % (9.3-17.3); White Blood Count 17.6 T/CUMM (4-12)
[2022-06-25 05:41] LABS: Potassium 4.5 MMOL/L (3.5-5.1)
[2022-06-25 05:42] LABS: % Iron Saturation 14.5 % (18-50); Ferritin 337.3 ng/mL (8-252)
[2022-06-25 05:45] LABS: Band Neutrophils 2 % (0-10); Hypochromia Slight; Lymphocytes 19 % (20-55); Microcytosis Slight; Nucleated Red Blood Cells 1 /100 WBC (0-5); Platelet Estimate Adequate; Total Cells Counted 100
[2022-06-25 05:55] LABS: Folate 5.1 NG/ML (5.38-24.0)
[2022-06-25] MEDS ORDERED: POLYETHYLENE GLYCOL POWDER 17 GM PACK PO PRN (07:49)
[2022-06-25] MEDS: LISINOPRIL/HCTZ 10-12.5 MG TABLET PO SCH (09:25)
[2022-06-25] MEDS: FOLIC ACID 1 MG TABLET PO SCH ×2 (09:26→20:23)
[2022-06-25] MEDS: carvediloL 12.5 MG TABLET PO SCH ×2 (09:26→17:43)
[2022-06-25] MEDS: INSULIN LISPRO 100 UNIT/ML SUBCUT SCH ×8 (09:26→20:26)
[2022-06-25] MEDS: CHOLECALCIFEROL 5,000 UNIT TABLET PO SCH (09:26)
[2022-06-25] MEDS: DOCUSATE SODIUM 100 MG CAPSULE PO SCH ×2 (09:26→20:23)
[2022-06-25] MEDS: INSULIN GLARGINE 100 UNIT/ML SUBCUT SCH (09:27)
[2022-06-25] MEDS: FERRIC GLUCONATE COMPLEX 125 MG in SODIUM CHLORIDE 0.9% 100 ML IV SCH (09:28)
[2022-06-25] MEDS: ACETAMINOPHEN 325 MG TABLET PO PRN ×2 (10:22→22:25)
[2022-06-25] MEDS: ENOXAPARIN 30 MG/0.3 ML SYRINGE SUBCUT SCH (12:13)
[2022-06-25] MEDS: SIMVASTATIN 10 MG TABLET PO SCH (20:23)
[2022-06-26 05:41] LABS: Basophils # 0.1 10*3/uL (0.0-0.2); Basophils % 0.2 % (0.0-0.8); Eosinophils # 0.2 10*3/uL (0.0-0.87); Eosinophils % 0.9 % (0.00-10.9); Hematocrit 25.5 VOL% (35.7-47.0); Hemoglobin 7.9 GM/DL (12.0-16.0); Immature Granulocytes % 11.1 %; Immature Granulocytes Absolute 2.47 #; Lymphocytes # 4.1 10*3/uL (1.4-4.0); Lymphocytes % 18.6 % (21.3-54.2); Mean Corpuscular Volume 87.3 FL (87-102); Mean Platelet Volume 9.8 FL (9.6-12.0); Monocytes # 1.7 10*3/uL (0.11-0.8); Monocytes % 7.6 % (1.7-12.7); NRBC # 0.03 10*3/uL; Neutrophils % 61.6 % (38.7-73.9); Platelet Count 577 T/CUMM (130-400); Red Blood Count 2.92 MC/CUMM (3.8-5.5); Red Cell Distribution Width 14.6 % (9.3-17.3); White Blood Count 22.2 T/CUMM (4-12)
[2022-06-26 05:59] LABS: Band Neutrophils 4 % (0-10); Hypochromia Slight; Lymphocytes 21 % (20-55); Microcytosis Slight; Nucleated Red Blood Cells 1 /100 WBC (0-5); Platelet Estimate Adequate; Total Cells Counted 100
[2022-06-26 06:06] LABS: Calcium 10.4 MG/DL (8.5-10.1); Osmolality,Calculated 286.8 MOS/KG (273-304); Potassium 3.7 MMOL/L (3.5-5.1)
[2022-06-26] MEDS: INSULIN GLARGINE 100 UNIT/ML SUBCUT SCH (10:16)
[2022-06-26] MEDS: carvediloL 12.5 MG TABLET PO SCH ×2 (10:16→17:23)
[2022-06-26] MEDS: LISINOPRIL/HCTZ 10-12.5 MG TABLET PO SCH (10:17)
[2022-06-26] MEDS: CHOLECALCIFEROL 5,000 UNIT TABLET PO SCH (10:17)
[2022-06-26] MEDS: FOLIC ACID 1 MG TABLET PO SCH ×2 (10:17→20:45)
[2022-06-26] MEDS: DOCUSATE SODIUM 100 MG CAPSULE PO SCH ×2 (10:17→20:45)
[2022-06-26] MEDS: FERRIC GLUCONATE COMPLEX 125 MG in SODIUM CHLORIDE 0.9% 100 ML IV SCH (10:17)
[2022-06-26] MEDS: ceFAZolin 2,000 MG/50 ML DUPLEX IV SCH ×3 (10:18→17:23)
[2022-06-26] MEDS: INSULIN LISPRO 100 UNIT/ML SUBCUT SCH ×8 (10:19→20:09)
[2022-06-26] MEDS: ENOXAPARIN 30 MG/0.3 ML SYRINGE SUBCUT SCH (13:51)
[2022-06-26] MEDS: ACETAMINOPHEN 325 MG TABLET PO PRN (20:45)
[2022-06-26] MEDS: SIMVASTATIN 10 MG TABLET PO SCH (20:46)
[2022-06-27] MEDS: ceFAZolin 2,000 MG/50 ML DUPLEX IV SCH ×3 (01:15→16:39)
[2022-06-27] MEDS: ACETAMINOPHEN 325 MG TABLET PO PRN ×2 (01:15→11:03)
[2022-06-27 04:52] LABS: Basophils # 0.2 10*3/uL (0.0-0.2); Basophils % 0.7 % (0.0-0.8); Eosinophils # 0.2 10*3/uL (0.0-0.87); Eosinophils % 0.8 % (0.00-10.9); Hemoglobin 7.4 GM/DL (12.0-16.0); Immature Granulocytes % 10.4 %; Immature Granulocytes Absolute 2.21 #; Lymphocytes # 3.7 10*3/uL (1.4-4.0); Lymphocytes % 17.2 % (21.3-54.2); Mean Corpuscular HGB Conc 30.8 GM/DL (32-36); Mean Corpuscular Volume 86.3 FL (87-102); Monocytes # 1.7 10*3/uL (0.11-0.8); Monocytes % 7.9 % (1.7-12.7); NRBC # 0.03 10*3/uL; Platelet Count 589 T/CUMM (130-400); Red Blood Count 2.78 MC/CUMM (3.8-5.5); Red Cell Distribution Width 14.8 % (9.3-17.3); White Blood Count 21.4 T/CUMM (4-12)
[2022-06-27 05:06] LABS: Calcium 10.2 MG/DL (8.5-10.1); Osmolality,Calculated 284.4 MOS/KG (273-304); Potassium 4.5 MMOL/L (3.5-5.1)
[2022-06-27 05:24] LABS: Band Neutrophils 1 % (0-10); Lymphocytes 19 % (20-55); Platelet Estimate Increased; Total Cells Counted 100
[2022-06-27 05:25] LABS: Hypochromia Slight; Microcytosis Slight
[2022-06-27] MEDS: LISINOPRIL/HCTZ 10-12.5 MG TABLET PO SCH (08:11)
[2022-06-27] MEDS: carvediloL 12.5 MG TABLET PO SCH ×2 (08:12→16:40)
[2022-06-27] MEDS: DOCUSATE SODIUM 100 MG CAPSULE PO SCH (08:12)
[2022-06-27] MEDS: FOLIC ACID 1 MG TABLET PO SCH (08:12)
[2022-06-27] MEDS: CHOLECALCIFEROL 5,000 UNIT TABLET PO SCH (08:12)
[2022-06-27] MEDS: INSULIN LISPRO 100 UNIT/ML SUBCUT SCH ×8 (08:13→16:39)
[2022-06-27] MEDS: INSULIN GLARGINE 100 UNIT/ML SUBCUT SCH (08:29)
[2022-06-27] MEDS: FERRIC GLUCONATE COMPLEX 125 MG in SODIUM CHLORIDE 0.9% 100 ML IV SCH (11:13)
[2022-06-27 11:25] VITALS: BP 141/99
[2022-06-27] MEDS: ENOXAPARIN 30 MG/0.3 ML SYRINGE SUBCUT SCH (11:29)
[2022-06-27] MEDS ORDERED: ALBUTEROL/IPRATROPIUM 3 ML NEB RESP TX SCH (13:00)
[2022-06-28] MEDS ORDERED: FERROUS SULFATE 325 MG TABLET PO SCH (08:00)
== END 2022-06-27 18:38 | disposition home health service (06) | DRG 178 ==
LOC: N.ED 06:40 → SUATTDRO 11:59 → N.EDINP 11:59 → N.3E 16:10
PROVIDERS: ADMIT Internal Medicine; ATTEND Hospitalist

== ENCOUNTER 2022-07-20 08:55 | Inpatient (IN) ==
[2022-07-20 10:13] LABS: Basophils % 0.5 % (0.0-0.8); Eosinophils # 0.1 10*3/uL (0.0-0.87); Eosinophils % 1.6 % (0.00-10.9); Hematocrit 27.9 VOL% (35.7-47.0); Hemoglobin 8.1 GM/DL (12.0-16.0); Immature Granulocytes % 0.5 %; Immature Granulocytes Absolute 0.03 #; Lymphocytes # 1.7 10*3/uL (1.4-4.0); Lymphocytes % 26.6 % (21.3-54.2); Mean Corpuscular Volume 92.1 FL (87-102); Monocytes # 0.6 10*3/uL (0.11-0.8); Monocytes % 10.3 % (1.7-12.7); Neutrophils % 60.5 % (38.7-73.9); Platelet Count 404 T/CUMM (130-400); Red Blood Count 3.03 MC/CUMM (3.8-5.5); Red Cell Distribution Width 18.1 % (9.3-17.3); White Blood Count 6.2 T/CUMM (4-12)
[2022-07-20 10:29] LABS: Alanine Aminotransferase 17 U/L (13-56); Albumin 1.5 G/DL (3.4-5.0); Alkaline Phosphatase 130 U/L (45-117); Aspartate Amino Transferase 32 U/L (0-37); Bilirubin,Total < 0.39 MG/DL (0.20-1.00); Blood Urea Nitrogen 17 MG/DL (7-18); Calcium 9.7 MG/DL (8.5-10.1); Carbon Dioxide 32 MMOL/L (21-32); Chloride 110 MMOL/L (98-107); Glucose 137 MG/DL (74-106); Osmolality,Calculated 293.6 MOS/KG (273-304); Potassium 3.4 MMOL/L (3.5-5.1); Sodium 146 MMOL/L (136-145); Total Protein 6.3 G/DL (6.4-8.2)
[2022-07-20 10:50] LABS: Bacteria,Urine Occasional /HPF (Few); Bilirubin,Urine Negative (Negative); Blood, Urine Small mg/dL (Negative); Glucose,Urine (UA) 150 mg/dL (Negative); Hyaline Casts,Urine 26 /LPF (0-3); Ketones,Urine Negative (Negative); Mucus,Urine Occasional /LPF (Occasional); Nitrite,Urine Negative (Negative); Protein,Urine >=500 mg/dL (Negative); RBC,Urine 234 /HPF (0-4); Squamous Epithelial Cell,Urine Few /HPF (0-10); Urine Appearance CLOUDY (Clear); Urine Color Yellow (Yellow); Urine Specific Gravity 1.017 (1.001-1.035); Urine Urobilinogen < 2.0 eU/dL (<2.0)
[2022-07-20] MEDS ORDERED: GLUCAGON 1 MG VIAL IM PRN (13:06)
[2022-07-20] MEDS ORDERED: DEXTROSE 10% 250 ML BAG IV PRN (13:06)
[2022-07-20] MEDS ORDERED: LACTULOSE 20 GM/30 ML UDCUP PO ONE (13:10)
[2022-07-20] MEDS ORDERED: ALBUTEROL/IPRATROPIUM 3 ML NEB RESP TX PRN (13:22)
[2022-07-20] MEDS ORDERED: POTASSIUM CHLORIDE 20 MEQ TABLET PO ONE (13:40)
[2022-07-20] MEDS: CEFEPIME 1,000 MG in SODIUM CHLORIDE 0.9% 100 ML IV SCH ×2 (15:52→21:41)
[2022-07-20] MEDS: INSULIN REGULAR 100 UNIT/ML SUBCUT SCH ×3 (16:22→21:42)
[2022-07-20] MEDS: LEVOFLOXACIN INJ 750 MG/150 ML PREMIX IV SCH (17:13)
[2022-07-20] MEDS: carvediloL 12.5 MG TABLET PO SCH (17:23)
[2022-07-20] MEDS: VANCOMYCIN INJ 1,000 MG in SODIUM CHLORIDE 0.9% 250 ML IV SCH (18:37)
[2022-07-20] MEDS: hydrALAZINE 20 MG/1 ML VIAL IV PRN (18:43)
[2022-07-20] MEDS: ALBUTEROL 2.5 MG/3 ML NEB RESP TX SCH (20:50)
[2022-07-20] MEDS ORDERED: ENOXAPARIN 40 MG/0.4 ML SYRINGE SUBCUT SCH (21:00)
[2022-07-20] MEDS: guaiFENesin/DM ER 600-30 MG TABLET PO SCH (21:39)
[2022-07-20] MEDS: SIMVASTATIN 10 MG TABLET PO SCH (21:40)
[2022-07-20] MEDS: FOLIC ACID 1 MG TABLET PO SCH (21:40)
[2022-07-20] MEDS: FERROUS SULFATE 325 MG TABLET PO SCH (21:40)
[2022-07-20] MEDS: DOCUSATE SODIUM 100 MG CAPSULE PO SCH ×2 (21:41)
[2022-07-20] MEDS: INSULIN GLARGINE 100 UNIT/ML SUBCUT SCH (21:50)
[2022-07-21] MEDS: ALBUTEROL 2.5 MG/3 ML NEB RESP TX SCH ×4 (00:17→19:22)
[2022-07-21] MEDS: CEFEPIME 1,000 MG in SODIUM CHLORIDE 0.9% 100 ML IV SCH ×3 (02:15→17:39)
[2022-07-21] MEDS: VANCOMYCIN INJ 1,000 MG in SODIUM CHLORIDE 0.9% 250 ML IV SCH ×2 (04:31→16:25)
[2022-07-21 05:57] LABS: Basophils % 0.3 % (0.0-0.8); Eosinophils # 0.1 10*3/uL (0.0-0.87); Eosinophils % 1.4 % (0.00-10.9); Hematocrit 27.6 VOL% (35.7-47.0); Hemoglobin 7.9 GM/DL (12.0-16.0); Immature Granulocytes % 0.3 %; Immature Granulocytes Absolute 0.02 #; Lymphocytes # 1.3 10*3/uL (1.4-4.0); Lymphocytes % 20.1 % (21.3-54.2); Mean Corpuscular HGB Conc 28.6 GM/DL (32-36); Mean Corpuscular Volume 92.9 FL (87-102); Mean Platelet Volume 10.8 FL (9.6-12.0); Monocytes # 0.6 10*3/uL (0.11-0.8); Monocytes % 9.8 % (1.7-12.7); Neutrophils % 68.1 % (38.7-73.9); Platelet Count 388 T/CUMM (130-400); Red Blood Count 2.97 MC/CUMM (3.8-5.5); Red Cell Distribution Width 17.8 % (9.3-17.3); White Blood Count 6.3 T/CUMM (4-12)
[2022-07-21 06:36] LABS: Calcium 9.9 MG/DL (8.5-10.1); Osmolality,Calculated 289.6 MOS/KG (273-304); Potassium 4.1 MMOL/L (3.5-5.1); Risk Ratio 1.88; VLDL Cholesterol 6.2 MG/DL
[2022-07-21] MEDS ORDERED: SODIUM CHLORIDE 0.9% 1,000 ML IV PRN (09:22)
[2022-07-21 10:51] LABS: Arterial Base Excess iSTAT 6 MMOL/L (-2.5-2.5); Arterial Bicarbonate iSTAT 31.4 MMOL/L (20-26); Arterial O2 Saturation iSTAT 96 % (95-100); Arterial PCO2 iSTAT 52 MM HG (35-48); Arterial PO2 iSTAT 87 MM HG (80-95); Arterial Total CO2 iSTAT 33 MMO/L (23-27); Arterial pH iSTAT 7.388 (7.35-7.45)
[2022-07-21] MEDS: ALBUMIN 25% 25 GM/100 ML VIAL IV SCH (11:00)
[2022-07-21] MEDS: FUROSEMIDE 40 MG/4 ML VIAL IV SCH ×2 (11:01→16:25)
[2022-07-21] MEDS: LISINOPRIL/HCTZ 20-25 MG TABLET PO SCH (11:09)
[2022-07-21] MEDS: CHOLECALCIFEROL 5,000 UNIT TABLET PO SCH (11:10)
[2022-07-21] MEDS: guaiFENesin/DM ER 600-30 MG TABLET PO SCH ×2 (11:10→20:21)
[2022-07-21] MEDS: FOLIC ACID 1 MG TABLET PO SCH ×2 (11:15→20:21)
[2022-07-21] MEDS: FERROUS SULFATE 325 MG TABLET PO SCH ×2 (11:15→20:21)
[2022-07-21] MEDS: PANTOPRAZOLE 40 MG TABLET PO SCH (11:16)
[2022-07-21] MEDS: carvediloL 12.5 MG TABLET PO SCH ×2 (11:16→17:08)
[2022-07-21] MEDS: DOCUSATE SODIUM 100 MG CAPSULE PO SCH ×4 (11:16→20:21)
[2022-07-21 11:18] LABS: % Iron Saturation 22.2 % (18-50); Free T4 (Free Thyroxine) 0.75 NG/DL (0.76-1.46); Thyroid Stimulating Hormone 1.88 uIU/ml (0.358-3.74)
[2022-07-21 11:19] LABS: Rheumatoid Factor < 15 IU/ML (<15)
[2022-07-21] MEDS: INSULIN REGULAR 100 UNIT/ML SUBCUT SCH ×6 (12:05→20:12)
[2022-07-21] MEDS: hydrALAZINE 20 MG/1 ML VIAL IV PRN (12:23)
[2022-07-21] MEDS: ONDANSETRON 4 MG/2 ML VIAL IV PRN (12:23)
[2022-07-21 12:51] LABS: Parathyroid Hormone Intact 263.1 PG/ML (18.4-80.1)
[2022-07-21 12:55] LABS: Folate > 24.00 NG/ML (5.38-24.0); Vitamin B12 589 PG/ML (211-911)
[2022-07-21] MEDS ORDERED: MORPHINE 2 MG/1 ML SYRINGE IV ONE (13:05)
[2022-07-21] MEDS: methylPREDNISolone SOD SUC 40 MG/1 ML VIAL IV SCH ×2 (13:19→20:32)
[2022-07-21 13:27] LABS: Hepatitis B Core IgM Quant 0.12 Index; Hepatitis B Surface Ag Quant < 0.10 Index; Hepatitis B Surface Ag Result Non-Reactive (NonReactive); Hepatitis C Virus Ab Quant 0.07 Index; Hepatitis C Virus Ab Result Non-Reactive (NonReactive)
[2022-07-21] MEDS ORDERED: HYDROmorphone 1 MG/1 ML SYRINGE IV PRN (14:45)
[2022-07-21] MEDS: LEVOFLOXACIN INJ 750 MG/150 ML PREMIX IV SCH (15:02)
[2022-07-21] MEDS ORDERED: PROMETHAZINE 25 MG/1 ML VIAL IM PRN (16:48)
[2022-07-21] MEDS: cloNIDine 0.3 MG/24 HR PATCH TRANSDERM SCH (17:08)
[2022-07-21] MEDS: INSULIN GLARGINE 100 UNIT/ML SUBCUT SCH (20:12)
[2022-07-21] MEDS: SIMVASTATIN 10 MG TABLET PO SCH (20:21)
[2022-07-22] MEDS: CEFEPIME 1,000 MG in SODIUM CHLORIDE 0.9% 100 ML IV SCH ×4 (00:44→19:02)
[2022-07-22] MEDS: ALBUTEROL 2.5 MG/3 ML NEB RESP TX SCH ×4 (01:03→19:56)
[2022-07-22] MEDS: VANCOMYCIN INJ 1,000 MG in SODIUM CHLORIDE 0.9% 250 ML IV SCH ×2 (04:00→17:48)
[2022-07-22 04:45] LABS: Basophils % 0.3 % (0.0-0.8); Hematocrit 26.9 VOL% (35.7-47.0); Hemoglobin 7.7 GM/DL (12.0-16.0); Immature Granulocytes % 0.3 %; Immature Granulocytes Absolute 0.02 #; Lymphocytes # 1.6 10*3/uL (1.4-4.0); Lymphocytes % 21.6 % (21.3-54.2); Mean Corpuscular HGB Conc 28.6 GM/DL (32-36); Mean Corpuscular Volume 94.1 FL (87-102); Mean Platelet Volume 10.6 FL (9.6-12.0); Monocytes # 0.4 10*3/uL (0.11-0.8); Monocytes % 5.7 % (1.7-12.7); Neutrophils % 72.1 % (38.7-73.9); Platelet Count 394 T/CUMM (130-400); Red Blood Count 2.86 MC/CUMM (3.8-5.5); Red Cell Distribution Width 16.9 % (9.3-17.3); White Blood Count 7.2 T/CUMM (4-12)
[2022-07-22] MEDS: methylPREDNISolone SOD SUC 40 MG/1 ML VIAL IV SCH ×3 (05:00→23:45)
[2022-07-22 05:14] LABS: Calcium 10.9 MG/DL (8.5-10.1); Osmolality,Calculated 290.8 MOS/KG (273-304); Potassium 4.5 MMOL/L (3.5-5.1)
[2022-07-22 08:07] LABS: PT Patient Result 11.4 SECS (10.1-12.1)
[2022-07-22] MEDS: DOCUSATE SODIUM 100 MG CAPSULE PO SCH ×4 (08:55→22:16)
[2022-07-22] MEDS: LISINOPRIL/HCTZ 20-25 MG TABLET PO SCH (08:56)
[2022-07-22] MEDS: FOLIC ACID 1 MG TABLET PO SCH ×3 (08:56→22:17)
[2022-07-22] MEDS: guaiFENesin/DM ER 600-30 MG TABLET PO SCH ×2 (08:56→22:16)
[2022-07-22] MEDS: CHOLECALCIFEROL 5,000 UNIT TABLET PO SCH (08:56)
[2022-07-22] MEDS: PANTOPRAZOLE 40 MG TABLET PO SCH (08:56)
[2022-07-22] MEDS: FERROUS SULFATE 325 MG TABLET PO SCH ×2 (08:57→22:16)
[2022-07-22] MEDS: carvediloL 12.5 MG TABLET PO SCH ×2 (08:57→17:23)
[2022-07-22] MEDS: INSULIN REGULAR 100 UNIT/ML SUBCUT SCH ×7 (08:59→23:00)
[2022-07-22] MEDS: FUROSEMIDE 40 MG/4 ML VIAL IV SCH ×2 (09:00→16:03)
[2022-07-22] MEDS: ALBUMIN 25% 25 GM/100 ML VIAL IV SCH (10:54)
[2022-07-22 11:58] LABS: PT Patient Result 11.4 SECS (10.1-12.1)
[2022-07-22 12:20] LABS: Albumin 2.2 G/DL (3.4-5.0)
[2022-07-22 12:39] LABS: Total Volume,Urine 1700 ML (400-2000)
[2022-07-22 13:00] LABS: Total Protein 24 Hr Ur Result 4964 MG/24HR (0-149.1)
[2022-07-22] MEDS ORDERED: CARBOXYMETHYLCELLULOSE 1% OPH SOLN BOTH EYES PRN (14:37)
[2022-07-22] MEDS: LEVOFLOXACIN INJ 750 MG/150 ML PREMIX IV SCH (16:07)
[2022-07-22] MEDS: hydrALAZINE 20 MG/1 ML VIAL IV PRN (18:03)
[2022-07-22] MEDS: INSULIN GLARGINE 100 UNIT/ML SUBCUT SCH (22:16)
[2022-07-22] MEDS: SIMVASTATIN 10 MG TABLET PO SCH (22:17)
[2022-07-23] MEDS: hydrALAZINE 20 MG/1 ML VIAL IV PRN ×2 (00:55→14:41)
[2022-07-23] MEDS: CEFEPIME 1,000 MG in SODIUM CHLORIDE 0.9% 100 ML IV SCH ×4 (00:55→17:25)
[2022-07-23] MEDS: ALBUTEROL 2.5 MG/3 ML NEB RESP TX SCH ×4 (00:58→19:42)
[2022-07-23] MEDS ORDERED: INSULIN REGULAR 100 UNIT/ML SUBCUT ONE (01:10)
[2022-07-23 04:55] LABS: Basophils % 0.4 % (0.0-0.8); Hemoglobin 7.9 GM/DL (12.0-16.0); Immature Granulocytes % 0.5 %; Immature Granulocytes Absolute 0.04 #; Lymphocytes % 12.2 % (21.3-54.2); Mean Corpuscular HGB Conc 29.3 GM/DL (32-36); Mean Corpuscular Volume 92.2 FL (87-102); Mean Platelet Volume 10.7 FL (9.6-12.0); Monocytes # 0.3 10*3/uL (0.11-0.8); Neutrophils % 82.9 % (38.7-73.9); Platelet Count 395 T/CUMM (130-400); Red Blood Count 2.93 MC/CUMM (3.8-5.5); Red Cell Distribution Width 16.4 % (9.3-17.3); White Blood Count 8.3 T/CUMM (4-12)
[2022-07-23 05:25] LABS: Alanine Aminotransferase 34 U/L (13-56); Albumin 1.8 G/DL (3.4-5.0); Alkaline Phosphatase 148 U/L (45-117); Aspartate Amino Transferase 22 U/L (0-37); Bilirubin,Total < 0.39 MG/DL (0.20-1.00); Blood Urea Nitrogen 32 MG/DL (7-18); Calcium 10.9 MG/DL (8.5-10.1); Carbon Dioxide 28 MMOL/L (21-32); Chloride 104 MMOL/L (98-107); Glucose 343 MG/DL (74-106); Osmolality,Calculated 295.7 MOS/KG (273-304); Potassium 4.5 MMOL/L (3.5-5.1); Sodium 138 MMOL/L (136-145); Total Protein 6.4 G/DL (6.4-8.2)
[2022-07-23] MEDS: methylPREDNISolone SOD SUC 40 MG/1 ML VIAL IV SCH ×2 (05:57→17:24)
[2022-07-23] MEDS: VANCOMYCIN INJ 1,000 MG in SODIUM CHLORIDE 0.9% 250 ML IV SCH (05:57)
[2022-07-23] MEDS: INSULIN REGULAR 100 UNIT/ML SUBCUT SCH ×4 (08:31→16:31)
[2022-07-23] MEDS: INSULIN LISPRO 100 UNIT/ML SUBCUT SCH ×4 (08:50→20:18)
[2022-07-23] MEDS: ONDANSETRON 4 MG/2 ML VIAL IV PRN ×3 (08:51→20:16)
[2022-07-23] MEDS: FUROSEMIDE 40 MG/4 ML VIAL IV SCH (08:54)
[2022-07-23] MEDS: carvediloL 12.5 MG TABLET PO SCH ×2 (09:00→17:25)
[2022-07-23] MEDS ORDERED: SODIUM CHLORIDE 0.9% 1,000 ML IV SCH (09:00)
[2022-07-23] MEDS: DOCUSATE SODIUM 100 MG CAPSULE PO SCH ×2 (09:00→20:17)
[2022-07-23] MEDS: LISINOPRIL/HCTZ 20-25 MG TABLET PO SCH (09:00)
[2022-07-23] MEDS: guaiFENesin/DM ER 600-30 MG TABLET PO SCH ×2 (09:00→20:17)
[2022-07-23] MEDS: amLODIPine 5 MG TABLET PO SCH ×2 (09:00→09:03)
[2022-07-23] MEDS: FERROUS SULFATE 325 MG TABLET PO SCH ×2 (09:00→20:17)
[2022-07-23] MEDS: FOLIC ACID 1 MG TABLET PO SCH ×2 (09:00→20:17)
[2022-07-23] MEDS: CHOLECALCIFEROL 5,000 UNIT TABLET PO SCH (09:00)
[2022-07-23] MEDS ORDERED: fentaNYL 100 MCG/2 ML VIAL ONE (10:02)
[2022-07-23] MEDS ORDERED: KETAMINE 500 MG/10 ML VIAL ONE (10:02)
[2022-07-23] MEDS ORDERED: MIDAZOLAM 2 MG/2 ML VIAL ONE ×2 (10:02→10:03)
[2022-07-23] MEDS ORDERED: LIDOCAINE MPF 1% /EPI 30 ML VIAL ONE (10:05)
[2022-07-23] MEDS ORDERED: SODIUM CHLORIDE 0.9% 250 ML IV ONE (10:40)
[2022-07-23] MEDS ORDERED: ONDANSETRON 4 MG/2 ML VIAL ONE (10:40)
[2022-07-23] MEDS ORDERED: LIDOCAINE 2% 5 ML VIAL ONE (10:40)
[2022-07-23] MEDS ORDERED: propofoL 200 MG/20 ML VIAL IV ONE (10:40)
[2022-07-23] MEDS ORDERED: INSULIN LISPRO 100 UNIT/ML SUBCUT SCH (11:30)
[2022-07-23 12:35] LABS: Immunoglobulin A 266 MG/DL (70-400); Immunoglobulin G 1270 MG/DL (700-1600); Immunoglobulin M 222 MG/DL (40-230)
[2022-07-23] MEDS: MORPHINE 2 MG/1 ML SYRINGE IV PRN ×2 (16:34→20:11)
[2022-07-23] MEDS: INSULIN GLARGINE 100 UNIT/ML SUBCUT SCH (20:16)
[2022-07-23] MEDS: SIMVASTATIN 10 MG TABLET PO SCH (20:17)
[2022-07-23] MEDS ORDERED: SODIUM CHLORIDE 0.9% 100 ML IV ONE (23:17)
[2022-07-24] MEDS: CEFEPIME 1,000 MG in SODIUM CHLORIDE 0.9% 100 ML IV SCH ×4 (00:04→18:27)
[2022-07-24] MEDS: MORPHINE 2 MG/1 ML SYRINGE IV PRN ×2 (00:15→15:39)
[2022-07-24] MEDS: ONDANSETRON 4 MG/2 ML VIAL IV PRN (00:15)
[2022-07-24] MEDS: ALBUTEROL 2.5 MG/3 ML NEB RESP TX SCH ×4 (01:00→19:00)
[2022-07-24] MEDS ORDERED: PROMETHAZINE 25 MG/1 ML VIAL IM ONE (01:02)
[2022-07-24] MEDS: hydrALAZINE 20 MG/1 ML VIAL IV PRN (01:26)
[2022-07-24 03:15] LABS: Basophils % 0.2 % (0.0-0.8); Hematocrit 25.5 VOL% (35.7-47.0); Hemoglobin 7.6 GM/DL (12.0-16.0); Immature Granulocytes % 0.3 %; Immature Granulocytes Absolute 0.03 #; Mean Corpuscular HGB Conc 29.8 GM/DL (32-36); Mean Corpuscular Volume 91.4 FL (87-102); Mean Platelet Volume 10.4 FL (9.6-12.0); Monocytes # 0.9 10*3/uL (0.11-0.8); Monocytes % 9.8 % (1.7-12.7); Neutrophils % 68.7 % (38.7-73.9); Platelet Count 403 T/CUMM (130-400); Red Blood Count 2.79 MC/CUMM (3.8-5.5); Red Cell Distribution Width 16.3 % (9.3-17.3); White Blood Count 9.5 T/CUMM (4-12)
[2022-07-24 03:31] LABS: Alanine Aminotransferase 31 U/L (13-56); Albumin 1.7 G/DL (3.4-5.0); Alkaline Phosphatase 122 U/L (45-117); Aspartate Amino Transferase 25 U/L (0-37); Bilirubin,Total < 0.39 MG/DL (0.20-1.00); Blood Urea Nitrogen 31 MG/DL (7-18); Carbon Dioxide 30 MMOL/L (21-32); Chloride 109 MMOL/L (98-107); Glucose 57 MG/DL (74-106); Potassium 4.2 MMOL/L (3.5-5.1); Sodium 143 MMOL/L (136-145)
[2022-07-24] MEDS: methylPREDNISolone SOD SUC 40 MG/1 ML VIAL IV SCH ×2 (05:47→18:33)
[2022-07-24] MEDS: INSULIN LISPRO 100 UNIT/ML SUBCUT SCH ×4 (08:40→22:17)
[2022-07-24] MEDS: INSULIN REGULAR 100 UNIT/ML SUBCUT SCH ×2 (08:46→12:44)
[2022-07-24] MEDS: guaiFENesin/DM ER 600-30 MG TABLET PO SCH ×2 (08:59→21:14)
[2022-07-24] MEDS: amLODIPine 5 MG TABLET PO SCH (09:00)
[2022-07-24] MEDS: FERROUS SULFATE 325 MG TABLET PO SCH ×2 (09:00→21:14)
[2022-07-24] MEDS: carvediloL 12.5 MG TABLET PO SCH ×2 (09:00→16:02)
[2022-07-24] MEDS: lisinopriL 20 MG TABLET PO SCH (09:00)
[2022-07-24] MEDS: FOLIC ACID 1 MG TABLET PO SCH ×2 (09:00→21:14)
[2022-07-24] MEDS: DOCUSATE SODIUM 100 MG CAPSULE PO SCH ×2 (09:00→21:14)
[2022-07-24] MEDS ORDERED: SODIUM CHLORIDE 0.9% 1,000 ML IV PRN ×2 (10:02→15:47)
[2022-07-24 11:11] LABS: Antinuclear Ab, S 1.4 U
[2022-07-24 12:11] LABS: Mycoplasma pneumoniae Ab, IgG Positive (Negative); Mycoplasma pneumoniae Ab, IgM Reactive (Negative)
[2022-07-24] MEDS ORDERED: FUROSEMIDE 40 MG/4 ML VIAL IV ONE ×2 (13:58→19:00)
[2022-07-24 14:06] LABS: Myeloperoxidase Antibody < 0.2 U
[2022-07-24 14:46] LABS: Immunoglobulin Subclass IgG4 25.7 mg/dL
[2022-07-24 15:32] LABS: Immunoglobulin A 247 MG/DL (70-400); Immunoglobulin G 1270 MG/DL (700-1600); Immunoglobulin M 199 MG/DL (40-230)
[2022-07-24] MEDS: SIMVASTATIN 10 MG TABLET PO SCH (21:14)
[2022-07-24] MEDS: INSULIN GLARGINE 100 UNIT/ML SUBCUT SCH (22:17)
[2022-07-25] MEDS: CEFEPIME 1,000 MG in SODIUM CHLORIDE 0.9% 100 ML IV SCH ×4 (00:46→18:28)
[2022-07-25] MEDS: MORPHINE 2 MG/1 ML SYRINGE IV PRN (00:53)
[2022-07-25] MEDS: methylPREDNISolone SOD SUC 40 MG/1 ML VIAL IV SCH ×2 (05:54→21:52)
[2022-07-25 07:08] LABS: Total Protein (Chem) 5.8 G/DL (6.4-8.3)
[2022-07-25] MEDS: ALBUTEROL 2.5 MG/3 ML NEB RESP TX SCH ×4 (07:26→20:23)
[2022-07-25] MEDS: DOCUSATE SODIUM 100 MG CAPSULE PO SCH ×2 (08:07→21:53)
[2022-07-25] MEDS: FOLIC ACID 1 MG TABLET PO SCH ×2 (08:08→21:53)
[2022-07-25] MEDS: amLODIPine 5 MG TABLET PO SCH (08:08)
[2022-07-25] MEDS: lisinopriL 20 MG TABLET PO SCH (08:08)
[2022-07-25] MEDS: guaiFENesin/DM ER 600-30 MG TABLET PO SCH ×2 (08:08→21:53)
[2022-07-25] MEDS: FERROUS SULFATE 325 MG TABLET PO SCH ×2 (08:08→21:53)
[2022-07-25] MEDS: carvediloL 12.5 MG TABLET PO SCH ×2 (08:08→16:33)
[2022-07-25] MEDS: INSULIN LISPRO 100 UNIT/ML SUBCUT SCH ×4 (08:40→21:53)
[2022-07-25 09:32] LABS: Anti-Nuclear Antibody Pattern Homogeneous
[2022-07-25 09:38] LABS: Albumin (SPE) 2.4 G/DL (3.2-5.3); Albumin (SPE) Rel % 41.5 %; Alpha 1 (SPE) 0.2 G/DL (0.1-0.4); Alpha 1 (SPE) Rel % 3.1 %; Alpha 2 (SPE) 1.2 G/DL (0.4-1.0); Alpha 2 (SPE) Rel % 20.1 %; Beta (SPE) 0.7 G/DL (0.5-1.1); Beta (SPE) Rel % 12.6 %; Gamma (SPE) 1.3 G/DL (0.7-1.7); Gamma (SPE) Rel % 22.7 %
[2022-07-25 13:02] LABS: Smooth Muscle Antibody Negative (Negative)
[2022-07-25] MEDS: ACETAMINOPHEN 325 MG TABLET PO PRN (21:53)
[2022-07-25] MEDS: SIMVASTATIN 10 MG TABLET PO SCH (21:54)
[2022-07-25] MEDS: INSULIN GLARGINE 100 UNIT/ML SUBCUT SCH (21:54)
[2022-07-26] MEDS: CEFEPIME 1,000 MG in SODIUM CHLORIDE 0.9% 100 ML IV SCH ×5 (00:53→23:51)
[2022-07-26] MEDS: ALBUTEROL 2.5 MG/3 ML NEB RESP TX SCH ×4 (01:11→19:40)
[2022-07-26 05:52] LABS: Basophils # 0.1 10*3/uL (0.0-0.2); Basophils % 0.4 % (0.0-0.8); Eosinophils # 0.1 10*3/uL (0.0-0.87); Eosinophils % 1.1 % (0.00-10.9); Hematocrit 26.2 VOL% (35.7-47.0); Hemoglobin 7.7 GM/DL (12.0-16.0); Immature Granulocytes % 0.9 %; Lymphocytes # 2.7 10*3/uL (1.4-4.0); Mean Corpuscular HGB Conc 29.4 GM/DL (32-36); Mean Corpuscular Volume 91.9 FL (87-102); Mean Platelet Volume 10.7 FL (9.6-12.0); Monocytes # 1.2 10*3/uL (0.11-0.8); Monocytes % 10.1 % (1.7-12.7); Neutrophils % 64.5 % (38.7-73.9); Platelet Count 346 T/CUMM (130-400); Red Blood Count 2.85 MC/CUMM (3.8-5.5); Red Cell Distribution Width 15.2 % (9.3-17.3); White Blood Count 11.6 T/CUMM (4-12)
[2022-07-26 06:05] LABS: Calcium 10.5 MG/DL (8.5-10.1); Osmolality,Calculated 301.4 MOS/KG (273-304); Potassium 4.3 MMOL/L (3.5-5.1)
[2022-07-26] MEDS: guaiFENesin/DM ER 600-30 MG TABLET PO SCH ×2 (09:44→20:37)
[2022-07-26] MEDS: DOCUSATE SODIUM 100 MG CAPSULE PO SCH ×2 (09:44→20:37)
[2022-07-26] MEDS: carvediloL 12.5 MG TABLET PO SCH ×2 (09:44→18:03)
[2022-07-26] MEDS: FERROUS SULFATE 325 MG TABLET PO SCH ×2 (09:44→20:37)
[2022-07-26] MEDS: amLODIPine 5 MG TABLET PO SCH (09:44)
[2022-07-26] MEDS: INSULIN LISPRO 100 UNIT/ML SUBCUT SCH ×4 (09:44→20:37)
[2022-07-26] MEDS: FOLIC ACID 1 MG TABLET PO SCH ×2 (09:44→20:37)
[2022-07-26] MEDS: methylPREDNISolone SOD SUC 40 MG/1 ML VIAL IV SCH ×2 (09:45→20:36)
[2022-07-26] MEDS: lisinopriL 20 MG TABLET PO SCH (09:45)
[2022-07-26] MEDS: CHOLECALCIFEROL 5,000 UNIT TABLET PO SCH (20:37)
[2022-07-26] MEDS: INSULIN GLARGINE 100 UNIT/ML SUBCUT SCH (20:37)
[2022-07-26] MEDS: SIMVASTATIN 10 MG TABLET PO SCH (20:38)
[2022-07-27] MEDS: ALBUTEROL 2.5 MG/3 ML NEB RESP TX SCH ×4 (00:48→19:16)
[2022-07-27] MEDS: MORPHINE 2 MG/1 ML SYRINGE IV PRN ×2 (01:00→18:42)
[2022-07-27] MEDS: hydrALAZINE 20 MG/1 ML VIAL IV PRN ×2 (01:22→16:01)
[2022-07-27] MEDS: CEFEPIME 1,000 MG in SODIUM CHLORIDE 0.9% 100 ML IV SCH ×3 (05:41→17:20)
[2022-07-27 07:01] LABS: Basophils % 0.3 % (0.0-0.8); Eosinophils % 0.3 % (0.00-10.9); Hematocrit 25.7 VOL% (35.7-47.0); Hemoglobin 7.8 GM/DL (12.0-16.0); Immature Granulocytes % 0.8 %; Immature Granulocytes Absolute 0.09 #; Lymphocytes # 2.2 10*3/uL (1.4-4.0); Lymphocytes % 18.8 % (21.3-54.2); Mean Corpuscular HGB Conc 30.4 GM/DL (32-36); Mean Corpuscular Volume 91.5 FL (87-102); Mean Platelet Volume 10.6 FL (9.6-12.0); Monocytes # 0.8 10*3/uL (0.11-0.8); Monocytes % 6.7 % (1.7-12.7); Neutrophils % 73.1 % (38.7-73.9); Platelet Count 366 T/CUMM (130-400); Red Blood Count 2.81 MC/CUMM (3.8-5.5); Red Cell Distribution Width 15.1 % (9.3-17.3); White Blood Count 11.6 T/CUMM (4-12)
[2022-07-27 07:15] LABS: Alanine Aminotransferase 18 U/L (13-56); Albumin 1.8 G/DL (3.4-5.0); Alkaline Phosphatase 147 U/L (45-117); Aspartate Amino Transferase 9 U/L (0-37); Bilirubin,Total < 0.39 MG/DL (0.20-1.00); Blood Urea Nitrogen 34 MG/DL (7-18); Calcium 10.7 MG/DL (8.5-10.1); Carbon Dioxide 28 MMOL/L (21-32); Chloride 110 MMOL/L (98-107); Glucose 290 MG/DL (74-106); Osmolality,Calculated 301.1 MOS/KG (273-304); Potassium 4.4 MMOL/L (3.5-5.1); Sodium 142 MMOL/L (136-145); Total Protein 6.1 G/DL (6.4-8.2)
[2022-07-27] MEDS: methylPREDNISolone SOD SUC 40 MG/1 ML VIAL IV SCH ×2 (09:57→20:14)
[2022-07-27] MEDS: INSULIN LISPRO 100 UNIT/ML SUBCUT SCH ×4 (10:01→20:16)
[2022-07-27] MEDS: guaiFENesin/DM ER 600-30 MG TABLET PO SCH ×2 (11:04→20:17)
[2022-07-27] MEDS: FERROUS SULFATE 325 MG TABLET PO SCH ×2 (11:04→20:16)
[2022-07-27] MEDS: CHOLECALCIFEROL 5,000 UNIT TABLET PO SCH ×2 (11:04→20:17)
[2022-07-27] MEDS: FOLIC ACID 1 MG TABLET PO SCH ×2 (11:04→20:16)
[2022-07-27] MEDS: amLODIPine 5 MG TABLET PO SCH (11:04)
[2022-07-27] MEDS: lisinopriL 20 MG TABLET PO SCH (11:04)
[2022-07-27] MEDS: carvediloL 12.5 MG TABLET PO SCH ×2 (11:04→16:51)
[2022-07-27] MEDS: DOCUSATE SODIUM 100 MG CAPSULE PO SCH ×2 (11:04→20:16)
[2022-07-27] MEDS ORDERED: SODIUM PHOSPHATE ENEMA 133 ML BOTTLE RECTAL ONE (12:34)
[2022-07-27] MEDS: ONDANSETRON 4 MG/2 ML VIAL IV PRN (16:01)
[2022-07-27] MEDS ORDERED: PROMETHAZINE INJ 12.5 MG in SODIUM CHLORIDE 0.9% 50 ML IV PRN (18:05)
[2022-07-27] MEDS: METOCLOPRAMIDE 10 MG/2 ML VIAL IV SCH (18:30)
[2022-07-27] MEDS: INSULIN GLARGINE 100 UNIT/ML SUBCUT SCH (20:17)
[2022-07-27] MEDS: SIMVASTATIN 10 MG TABLET PO SCH (20:17)
[2022-07-28] MEDS: CEFEPIME 1,000 MG in SODIUM CHLORIDE 0.9% 100 ML IV SCH (00:08)
[2022-07-28] MEDS: METOCLOPRAMIDE 10 MG/2 ML VIAL IV SCH ×4 (00:09→17:03)
[2022-07-28] MEDS: ALBUTEROL 2.5 MG/3 ML NEB RESP TX SCH ×4 (00:19→19:23)
[2022-07-28 05:31] LABS: Basophils % 0.4 % (0.0-0.8); Eosinophils # 0.1 10*3/uL (0.0-0.87); Eosinophils % 0.6 % (0.00-10.9); Hematocrit 26.4 VOL% (35.7-47.0); Hemoglobin 7.9 GM/DL (12.0-16.0); Immature Granulocytes % 0.6 %; Immature Granulocytes Absolute 0.07 #; Lymphocytes # 3.2 10*3/uL (1.4-4.0); Lymphocytes % 28.9 % (21.3-54.2); Mean Corpuscular HGB Conc 29.9 GM/DL (32-36); Mean Platelet Volume 10.6 FL (9.6-12.0); Monocytes # 0.6 10*3/uL (0.11-0.8); Monocytes % 5.8 % (1.7-12.7); Neutrophils % 63.7 % (38.7-73.9); Platelet Count 401 T/CUMM (130-400); Red Cell Distribution Width 15.3 % (9.3-17.3); White Blood Count 11.1 T/CUMM (4-12)
[2022-07-28 05:59] LABS: Calcium 11.5 MG/DL (8.5-10.1); Osmolality,Calculated 293.7 MOS/KG (273-304); Potassium 4.5 MMOL/L (3.5-5.1)
[2022-07-28] MEDS: INSULIN LISPRO 100 UNIT/ML SUBCUT SCH ×4 (08:59→20:39)
[2022-07-28] MEDS: guaiFENesin/DM ER 600-30 MG TABLET PO SCH ×2 (09:14→20:38)
[2022-07-28] MEDS: FERROUS SULFATE 325 MG TABLET PO SCH ×2 (09:14→20:38)
[2022-07-28] MEDS: lisinopriL 20 MG TABLET PO SCH (09:14)
[2022-07-28] MEDS: amLODIPine 5 MG TABLET PO SCH (09:14)
[2022-07-28] MEDS: DOCUSATE SODIUM 100 MG CAPSULE PO SCH ×2 (09:14→20:38)
[2022-07-28] MEDS: FOLIC ACID 1 MG TABLET PO SCH ×2 (09:14→20:38)
[2022-07-28] MEDS: CHOLECALCIFEROL 5,000 UNIT TABLET PO SCH ×2 (09:15→20:38)
[2022-07-28] MEDS: methylPREDNISolone SOD SUC 40 MG/1 ML VIAL IV SCH (09:15)
[2022-07-28] MEDS: carvediloL 12.5 MG TABLET PO SCH ×2 (09:16→16:15)
[2022-07-28] MEDS: cloNIDine 0.3 MG/24 HR PATCH TRANSDERM SCH (09:27)
[2022-07-28 11:27] LABS: % Iron Saturation 19.2 % (18-50)
[2022-07-28 11:31] LABS: Folate 19.24 NG/ML (5.38-24.0)
[2022-07-28] MEDS: POLYETHYLENE GLYCOL POWDER 17 GM PACK PO SCH (14:16)
[2022-07-28] MEDS ORDERED: amLODIPine 5 MG TABLET PO SCH (15:00)
[2022-07-28] MEDS: SODIUM CHLORIDE 0.9% 1,000 ML IV SCH (16:13)
[2022-07-28] MEDS: amLODIPine 10 MG TABLET PO SCH (16:15)
[2022-07-28] MEDS ORDERED: ALBUTEROL 1.25 MG/3 ML NEB RESP TX ONE (18:57)
[2022-07-28] MEDS: SIMVASTATIN 10 MG TABLET PO SCH (20:38)
[2022-07-28] MEDS: INSULIN GLARGINE 100 UNIT/ML SUBCUT SCH (20:39)
[2022-07-29] MEDS: ALBUTEROL 2.5 MG/3 ML NEB RESP TX SCH ×4 (00:22→19:50)
[2022-07-29] MEDS: METOCLOPRAMIDE 10 MG/2 ML VIAL IV SCH ×4 (00:30→17:07)
[2022-07-29] MEDS: hydrALAZINE 20 MG/1 ML VIAL IV PRN (00:35)
[2022-07-29] MEDS: MORPHINE 2 MG/1 ML SYRINGE IV PRN (00:36)
[2022-07-29] MEDS: ONDANSETRON 4 MG/2 ML VIAL IV PRN (03:38)
[2022-07-29 05:51] LABS: Basophils # 0.1 10*3/uL (0.0-0.2); Basophils % 0.4 % (0.0-0.8); Eosinophils # 0.1 10*3/uL (0.0-0.87); Eosinophils % 0.8 % (0.00-10.9); Hematocrit 28.8 VOL% (35.7-47.0); Hemoglobin 8.7 GM/DL (12.0-16.0); Immature Granulocytes % 0.6 %; Lymphocytes # 2.7 10*3/uL (1.4-4.0); Lymphocytes % 15.4 % (21.3-54.2); Mean Corpuscular HGB Conc 30.2 GM/DL (32-36); Mean Corpuscular Volume 90.9 FL (87-102); Mean Platelet Volume 10.2 FL (9.6-12.0); Monocytes # 1.1 10*3/uL (0.11-0.8); Monocytes % 6.5 % (1.7-12.7); Neutrophils % 76.3 % (38.7-73.9); Platelet Count 442 T/CUMM (130-400); Red Blood Count 3.17 MC/CUMM (3.8-5.5); Red Cell Distribution Width 14.7 % (9.3-17.3); White Blood Count 17.4 T/CUMM (4-12)
[2022-07-29 06:16] LABS: Calcium 11.5 MG/DL (8.5-10.1); Osmolality,Calculated 289.3 MOS/KG (273-304); Potassium 4.3 MMOL/L (3.5-5.1)
[2022-07-29] MEDS: INSULIN LISPRO 100 UNIT/ML SUBCUT SCH ×4 (07:47→21:10)
[2022-07-29] MEDS: FOLIC ACID 1 MG TABLET PO SCH ×2 (10:00→21:10)
[2022-07-29] MEDS: DOCUSATE SODIUM 100 MG CAPSULE PO SCH ×2 (10:00→21:10)
[2022-07-29] MEDS: amLODIPine 10 MG TABLET PO SCH (10:00)
[2022-07-29] MEDS: FERROUS SULFATE 325 MG TABLET PO SCH ×2 (10:00→21:10)
[2022-07-29] MEDS: CHOLECALCIFEROL 5,000 UNIT TABLET PO SCH ×2 (10:00→21:11)
[2022-07-29] MEDS: lisinopriL 20 MG TABLET PO SCH (10:00)
[2022-07-29] MEDS: predniSONE 20 MG TABLET PO SCH (10:00)
[2022-07-29] MEDS: carvediloL 12.5 MG TABLET PO SCH ×2 (10:01→16:34)
[2022-07-29] MEDS: POLYETHYLENE GLYCOL POWDER 17 GM PACK PO SCH (10:01)
[2022-07-29] MEDS: guaiFENesin/DM ER 600-30 MG TABLET PO SCH ×2 (10:11→21:10)
[2022-07-29] MEDS: SODIUM CHLORIDE 0.9% 1,000 ML IV SCH (10:12)
[2022-07-29] MEDS ORDERED: INSULIN GLARGINE 100 UNIT/ML SUBCUT ONE (13:00)
[2022-07-29] MEDS: SIMVASTATIN 10 MG TABLET PO SCH (21:11)
[2022-07-30] MEDS: METOCLOPRAMIDE 10 MG/2 ML VIAL IV SCH ×5 (01:26→23:48)
[2022-07-30] MEDS: ALBUTEROL 2.5 MG/3 ML NEB RESP TX SCH ×4 (02:17→20:45)
[2022-07-30 05:01] LABS: Basophils % 0.2 % (0.0-0.8); Eosinophils % 0.2 % (0.00-10.9); Hematocrit 30.2 VOL% (35.7-47.0); Hemoglobin 9.2 GM/DL (12.0-16.0); Immature Granulocytes % 0.8 %; Immature Granulocytes Absolute 0.12 #; Lymphocytes # 2.5 10*3/uL (1.4-4.0); Lymphocytes % 17.3 % (21.3-54.2); Mean Corpuscular HGB Conc 30.5 GM/DL (32-36); Mean Corpuscular Volume 89.1 FL (87-102); Mean Platelet Volume 10.7 FL (9.6-12.0); Monocytes # 0.8 10*3/uL (0.11-0.8); Monocytes % 5.7 % (1.7-12.7); Neutrophils % 75.8 % (38.7-73.9); Platelet Count 452 T/CUMM (130-400); Red Blood Count 3.39 MC/CUMM (3.8-5.5); Red Cell Distribution Width 14.4 % (9.3-17.3); White Blood Count 14.3 T/CUMM (4-12)
[2022-07-30] MEDS: hydrALAZINE 20 MG/1 ML VIAL IV PRN (05:34)
[2022-07-30 05:38] LABS: Calcium 11.6 MG/DL (8.5-10.1); Osmolality,Calculated 291.7 MOS/KG (273-304); Potassium 4.4 MMOL/L (3.5-5.1)
[2022-07-30] MEDS: amLODIPine 10 MG TABLET PO SCH (09:34)
[2022-07-30] MEDS: predniSONE 20 MG TABLET PO SCH (09:35)
[2022-07-30] MEDS: lisinopriL 20 MG TABLET PO SCH (09:35)
[2022-07-30] MEDS: POLYETHYLENE GLYCOL POWDER 17 GM PACK PO SCH (09:36)
[2022-07-30] MEDS: carvediloL 12.5 MG TABLET PO SCH ×2 (09:36→17:13)
[2022-07-30] MEDS: CHOLECALCIFEROL 5,000 UNIT TABLET PO SCH ×2 (09:36→20:55)
[2022-07-30] MEDS: INSULIN LISPRO 100 UNIT/ML SUBCUT SCH ×4 (09:36→21:08)
[2022-07-30] MEDS: FOLIC ACID 1 MG TABLET PO SCH ×2 (09:36→20:55)
[2022-07-30] MEDS: FERROUS SULFATE 325 MG TABLET PO SCH ×2 (09:36→20:55)
[2022-07-30] MEDS: DOCUSATE SODIUM 100 MG CAPSULE PO SCH ×2 (09:36→20:55)
[2022-07-30] MEDS ORDERED: GLUCAGON 1 MG VIAL IM PRN (11:27)
[2022-07-30] MEDS ORDERED: DEXTROSE 50% 25 GM/50 ML VIAL IV PRN (11:27)
[2022-07-30] MEDS: guaiFENesin/DM ER 600-30 MG TABLET PO SCH ×2 (12:35→21:45)
[2022-07-30] MEDS: ACETAMINOPHEN 325 MG TABLET PO PRN (17:12)
[2022-07-30] MEDS: SIMVASTATIN 10 MG TABLET PO SCH (20:55)
[2022-07-30] MEDS ORDERED: INSULIN GLARGINE 100 UNIT/ML SUBCUT SCH (21:00)
[2022-07-31] MEDS: hydrALAZINE 20 MG/1 ML VIAL IV PRN ×2 (01:50→18:00)
[2022-07-31] MEDS: ALBUTEROL 2.5 MG/3 ML NEB RESP TX SCH ×4 (02:58→19:57)
[2022-07-31] MEDS: METOCLOPRAMIDE 10 MG/2 ML VIAL IV SCH ×4 (05:36→23:17)
[2022-07-31] MEDS: POLYETHYLENE GLYCOL POWDER 17 GM PACK PO SCH (09:37)
[2022-07-31] MEDS: FOLIC ACID 1 MG TABLET PO SCH ×2 (09:38→21:23)
[2022-07-31] MEDS: INSULIN LISPRO 100 UNIT/ML SUBCUT SCH ×4 (09:38→21:22)
[2022-07-31] MEDS: carvediloL 12.5 MG TABLET PO SCH ×2 (09:39→16:56)
[2022-07-31] MEDS: DOCUSATE SODIUM 100 MG CAPSULE PO SCH ×2 (09:39→21:23)
[2022-07-31] MEDS: predniSONE 20 MG TABLET PO SCH (09:39)
[2022-07-31] MEDS: FERROUS SULFATE 325 MG TABLET PO SCH ×2 (09:39→21:23)
[2022-07-31] MEDS: lisinopriL 20 MG TABLET PO SCH (09:39)
[2022-07-31] MEDS: amLODIPine 10 MG TABLET PO SCH (09:39)
[2022-07-31] MEDS: CHOLECALCIFEROL 5,000 UNIT TABLET PO SCH ×2 (09:40→21:23)
[2022-07-31] MEDS: guaiFENesin/DM ER 600-30 MG TABLET PO SCH ×2 (10:06→21:23)
[2022-07-31] MEDS: ACETAMINOPHEN 325 MG TABLET PO PRN (17:40)
[2022-07-31] MEDS ORDERED: INSULIN GLARGINE 100 UNIT/ML SUBCUT SCH (21:00)
[2022-07-31] MEDS: SIMVASTATIN 10 MG TABLET PO SCH (21:23)
[2022-08-01] MEDS: ALBUTEROL 2.5 MG/3 ML NEB RESP TX SCH ×4 (01:39→19:30)
[2022-08-01 05:31] LABS: Basophils # 0.1 10*3/uL (0.0-0.2); Basophils % 0.4 % (0.0-0.8); Eosinophils % 0.2 % (0.00-10.9); Hemoglobin 8.8 GM/DL (12.0-16.0); Immature Granulocytes Absolute 0.17 #; Lymphocytes # 2.9 10*3/uL (1.4-4.0); Lymphocytes % 17.3 % (21.3-54.2); Mean Corpuscular HGB Conc 30.3 GM/DL (32-36); Mean Corpuscular Volume 91.8 FL (87-102); Mean Platelet Volume 10.2 FL (9.6-12.0); Monocytes # 0.9 10*3/uL (0.11-0.8); Monocytes % 5.4 % (1.7-12.7); Neutrophils % 75.7 % (38.7-73.9); Platelet Count 474 T/CUMM (130-400); Red Blood Count 3.16 MC/CUMM (3.8-5.5); Red Cell Distribution Width 14.6 % (9.3-17.3)
[2022-08-01 05:47] LABS: Calcium 11.6 MG/DL (8.5-10.1); Osmolality,Calculated 300.3 MOS/KG (273-304); Potassium 4.4 MMOL/L (3.5-5.1)
[2022-08-01] MEDS: METOCLOPRAMIDE 10 MG/2 ML VIAL IV SCH ×3 (06:19→17:08)
[2022-08-01] MEDS: FOLIC ACID 1 MG TABLET PO SCH ×2 (08:24→20:55)
[2022-08-01] MEDS: lisinopriL 20 MG TABLET PO SCH (08:24)
[2022-08-01] MEDS: FERROUS SULFATE 325 MG TABLET PO SCH ×2 (08:25→20:55)
[2022-08-01] MEDS: amLODIPine 10 MG TABLET PO SCH (08:25)
[2022-08-01] MEDS: predniSONE 20 MG TABLET PO SCH (08:25)
[2022-08-01] MEDS: INSULIN LISPRO 100 UNIT/ML SUBCUT SCH ×4 (08:25→21:21)
[2022-08-01] MEDS: DOCUSATE SODIUM 100 MG CAPSULE PO SCH ×2 (08:25→20:54)
[2022-08-01] MEDS: POLYETHYLENE GLYCOL POWDER 17 GM PACK PO SCH (08:25)
[2022-08-01] MEDS: carvediloL 12.5 MG TABLET PO SCH (08:25)
[2022-08-01] MEDS: CHOLECALCIFEROL 5,000 UNIT TABLET PO SCH ×2 (08:25→20:55)
[2022-08-01] MEDS: guaiFENesin/DM ER 600-30 MG TABLET PO SCH ×2 (08:26→21:15)
[2022-08-01] MEDS ORDERED: carvediloL 12.5 MG TABLET PO ONE (13:17)
[2022-08-01] MEDS ORDERED: ZOLEDRONIC ACID 4 MG/100 ML PREMIX IV ONE (14:00)
[2022-08-01] MEDS: carvediloL 25 MG TABLET PO SCH (17:11)
[2022-08-01] MEDS: ACETAMINOPHEN 325 MG TABLET PO PRN (20:55)
[2022-08-01] MEDS: SIMVASTATIN 10 MG TABLET PO SCH (20:55)
[2022-08-01] MEDS: INSULIN GLARGINE 100 UNIT/ML SUBCUT SCH (21:23)
[2022-08-02] MEDS: ALBUTEROL 2.5 MG/3 ML NEB RESP TX SCH ×4 (00:10→20:47)
[2022-08-02] MEDS ORDERED: MORPHINE 2 MG/1 ML SYRINGE IV ONE (01:01)
[2022-08-02] MEDS: METOCLOPRAMIDE 10 MG/2 ML VIAL IV SCH ×4 (01:15→17:24)
[2022-08-02] MEDS: hydrALAZINE 20 MG/1 ML VIAL IV PRN (01:53)
[2022-08-02 06:26] LABS: Calcium 11.1 MG/DL (8.5-10.1); Osmolality,Calculated 288.8 MOS/KG (273-304); Potassium 4.5 MMOL/L (3.5-5.1)
[2022-08-02 06:41] LABS: Basophils # 0.1 10*3/uL (0.0-0.2); Basophils % 0.3 % (0.0-0.8); Eosinophils % 0.3 % (0.00-10.9); Hematocrit 29.8 VOL% (35.7-47.0); Hemoglobin 8.7 GM/DL (12.0-16.0); Immature Granulocytes % 1.3 %; Immature Granulocytes Absolute 0.19 #; Lymphocytes # 2.5 10*3/uL (1.4-4.0); Lymphocytes % 16.3 % (21.3-54.2); Mean Corpuscular HGB Conc 29.2 GM/DL (32-36); Mean Corpuscular Volume 92.8 FL (87-102); Mean Platelet Volume 11.5 FL (9.6-12.0); Monocytes # 0.8 10*3/uL (0.11-0.8); Neutrophils % 76.8 % (38.7-73.9); Platelet Count 245 T/CUMM (130-400); Red Blood Count 3.21 MC/CUMM (3.8-5.5); Red Cell Distribution Width 14.7 % (9.3-17.3); White Blood Count 15.1 T/CUMM (4-12)
[2022-08-02] MEDS: predniSONE 20 MG TABLET PO SCH (10:02)
[2022-08-02] MEDS: POLYETHYLENE GLYCOL POWDER 17 GM PACK PO SCH (10:02)
[2022-08-02] MEDS: CHOLECALCIFEROL 5,000 UNIT TABLET PO SCH ×2 (10:03→21:26)
[2022-08-02] MEDS: FOLIC ACID 1 MG TABLET PO SCH ×2 (10:03→21:26)
[2022-08-02] MEDS: carvediloL 25 MG TABLET PO SCH ×2 (10:03→17:24)
[2022-08-02] MEDS: FERROUS SULFATE 325 MG TABLET PO SCH ×2 (10:03→21:25)
[2022-08-02] MEDS: DOCUSATE SODIUM 100 MG CAPSULE PO SCH ×2 (10:03→21:26)
[2022-08-02] MEDS: lisinopriL 20 MG TABLET PO SCH ×2 (10:03→21:26)
[2022-08-02] MEDS: INSULIN LISPRO 100 UNIT/ML SUBCUT SCH ×4 (10:03→21:32)
[2022-08-02] MEDS: amLODIPine 10 MG TABLET PO SCH (10:03)
[2022-08-02] MEDS: guaiFENesin/DM ER 600-30 MG TABLET PO SCH ×2 (12:42→21:26)
[2022-08-02] MEDS ORDERED: FUROSEMIDE 40 MG/4 ML VIAL IV ONE (13:22)
[2022-08-02] MEDS: SIMVASTATIN 10 MG TABLET PO SCH (21:25)
[2022-08-02] MEDS: INSULIN GLARGINE 100 UNIT/ML SUBCUT SCH (21:29)
[2022-08-02] MEDS: ACETAMINOPHEN 325 MG TABLET PO PRN (21:33)
[2022-08-03] MEDS: METOCLOPRAMIDE 10 MG/2 ML VIAL IV SCH ×4 (00:55→17:38)
[2022-08-03] MEDS: ALBUTEROL 2.5 MG/3 ML NEB RESP TX SCH ×4 (03:10→20:39)
[2022-08-03] MEDS: INSULIN LISPRO 100 UNIT/ML SUBCUT SCH ×4 (07:52→21:56)
[2022-08-03] MEDS: lisinopriL 20 MG TABLET PO SCH ×2 (08:10→21:49)
[2022-08-03] MEDS: FERROUS SULFATE 325 MG TABLET PO SCH ×2 (08:10→21:49)
[2022-08-03] MEDS: predniSONE 20 MG TABLET PO SCH (08:10)
[2022-08-03] MEDS: FOLIC ACID 1 MG TABLET PO SCH ×2 (08:10→21:49)
[2022-08-03] MEDS: ACETAMINOPHEN 325 MG TABLET PO PRN ×2 (08:10→22:05)
[2022-08-03] MEDS: carvediloL 25 MG TABLET PO SCH ×2 (08:10→17:38)
[2022-08-03] MEDS: DOCUSATE SODIUM 100 MG CAPSULE PO SCH ×2 (08:10→21:49)
[2022-08-03] MEDS: guaiFENesin/DM ER 600-30 MG TABLET PO SCH (08:11)
[2022-08-03] MEDS: POLYETHYLENE GLYCOL POWDER 17 GM PACK PO SCH (08:12)
[2022-08-03] MEDS: CHOLECALCIFEROL 5,000 UNIT TABLET PO SCH ×2 (10:12→21:49)
[2022-08-03] MEDS: amLODIPine 10 MG TABLET PO SCH (10:12)
[2022-08-03] MEDS: SIMVASTATIN 10 MG TABLET PO SCH (21:49)
[2022-08-03] MEDS: INSULIN GLARGINE 100 UNIT/ML SUBCUT SCH (21:53)
[2022-08-04] MEDS: METOCLOPRAMIDE 10 MG/2 ML VIAL IV SCH ×4 (00:57→17:35)
[2022-08-04] MEDS: hydrALAZINE 20 MG/1 ML VIAL IV PRN (01:04)
[2022-08-04] MEDS: ALBUTEROL 2.5 MG/3 ML NEB RESP TX SCH ×4 (01:54→21:35)
[2022-08-04] MEDS: cloNIDine 0.3 MG/24 HR PATCH TRANSDERM SCH (08:10)
[2022-08-04] MEDS: POLYETHYLENE GLYCOL POWDER 17 GM PACK PO SCH (08:10)
[2022-08-04] MEDS: FERROUS SULFATE 325 MG TABLET PO SCH ×2 (08:11→21:43)
[2022-08-04] MEDS: FOLIC ACID 1 MG TABLET PO SCH ×2 (08:11→21:43)
[2022-08-04] MEDS: CHOLECALCIFEROL 5,000 UNIT TABLET PO SCH ×2 (08:11→21:43)
[2022-08-04] MEDS: DOCUSATE SODIUM 100 MG CAPSULE PO SCH ×2 (08:12→21:43)
[2022-08-04] MEDS: lisinopriL 20 MG TABLET PO SCH ×2 (08:12→21:43)
[2022-08-04] MEDS: ACETAMINOPHEN 325 MG TABLET PO PRN ×3 (08:12→21:50)
[2022-08-04] MEDS: INSULIN LISPRO 100 UNIT/ML SUBCUT SCH ×4 (08:19→21:50)
[2022-08-04] MEDS: carvediloL 25 MG TABLET PO SCH ×2 (08:19→17:32)
[2022-08-04] MEDS: amLODIPine 10 MG TABLET PO SCH (10:37)
[2022-08-04] MEDS: predniSONE 20 MG TABLET PO SCH (10:37)
[2022-08-04 11:07] LABS: Basophils # 0.1 10*3/uL (0.0-0.2); Basophils % 0.4 % (0.0-0.8); Eosinophils # 0.3 10*3/uL (0.0-0.87); Hematocrit 26.5 VOL% (35.7-47.0); Immature Granulocytes % 1.5 %; Immature Granulocytes Absolute 0.25 #; Lymphocytes # 3.1 10*3/uL (1.4-4.0); Lymphocytes % 18.2 % (21.3-54.2); Mean Corpuscular HGB Conc 30.2 GM/DL (32-36); Mean Corpuscular Volume 91.1 FL (87-102); Neutrophils % 71.9 % (38.7-73.9); Platelet Count 411 T/CUMM (130-400); Red Blood Count 2.91 MC/CUMM (3.8-5.5); Red Cell Distribution Width 14.9 % (9.3-17.3)
[2022-08-04 11:24] LABS: Alanine Aminotransferase 46 U/L (13-56); Albumin 1.8 G/DL (3.4-5.0); Alkaline Phosphatase 137 U/L (45-117); Aspartate Amino Transferase 27 U/L (0-37); Bilirubin,Total < 0.39 MG/DL (0.20-1.00); Blood Urea Nitrogen 30 MG/DL (7-18); Calcium 9.5 MG/DL (8.5-10.1); Carbon Dioxide 27 MMOL/L (21-32); Chloride 112 MMOL/L (98-107); Glucose 153 MG/DL (74-106); Potassium 4.2 MMOL/L (3.5-5.1); Sodium 143 MMOL/L (136-145); Total Protein 5.7 G/DL (6.4-8.2)
[2022-08-04] MEDS: FUROSEMIDE 40 MG/4 ML VIAL IV SCH (13:45)
[2022-08-04] MEDS: SIMVASTATIN 10 MG TABLET PO SCH (21:43)
[2022-08-04] MEDS: INSULIN GLARGINE 100 UNIT/ML SUBCUT SCH (21:50)
[2022-08-05] MEDS: METOCLOPRAMIDE 10 MG/2 ML VIAL IV SCH ×3 (00:55→13:22)
[2022-08-05] MEDS: ALBUTEROL 2.5 MG/3 ML NEB RESP TX SCH ×3 (01:50→13:01)
[2022-08-05 05:24] LABS: Basophils # 0.1 10*3/uL (0.0-0.2); Basophils % 0.4 % (0.0-0.8); Eosinophils # 0.2 10*3/uL (0.0-0.87); Eosinophils % 1.1 % (0.00-10.9); Hematocrit 26.3 VOL% (35.7-47.0); Hemoglobin 7.9 GM/DL (12.0-16.0); Immature Granulocytes % 1.4 %; Immature Granulocytes Absolute 0.24 #; Lymphocytes # 2.9 10*3/uL (1.4-4.0); Lymphocytes % 17.6 % (21.3-54.2); Mean Corpuscular Volume 90.1 FL (87-102); Mean Platelet Volume 10.1 FL (9.6-12.0); Monocytes % 5.8 % (1.7-12.7); Neutrophils % 73.7 % (38.7-73.9); Platelet Count 411 T/CUMM (130-400); Red Blood Count 2.92 MC/CUMM (3.8-5.5); Red Cell Distribution Width 15.2 % (9.3-17.3); White Blood Count 16.6 T/CUMM (4-12)
[2022-08-05 06:06] LABS: Alanine Aminotransferase 36 U/L (13-56); Albumin 1.8 G/DL (3.4-5.0); Alkaline Phosphatase 137 U/L (45-117); Aspartate Amino Transferase 12 U/L (0-37); Bilirubin,Total < 0.39 MG/DL (0.20-1.00); Blood Urea Nitrogen 33 MG/DL (7-18); Carbon Dioxide 28 MMOL/L (21-32); Chloride 112 MMOL/L (98-107); Glucose 138 MG/DL (74-106); Osmolality,Calculated 294.8 MOS/KG (273-304); Potassium 4.3 MMOL/L (3.5-5.1); Sodium 144 MMOL/L (136-145); Total Protein 5.8 G/DL (6.4-8.2)
[2022-08-05 06:46] LABS: Calcium 9.8 MG/DL (8.5-10.1); Osmolality,Calculated 292.1 MOS/KG (273-304); Potassium 4.6 MMOL/L (3.5-5.1)
[2022-08-05] MEDS: INSULIN LISPRO 100 UNIT/ML SUBCUT SCH ×2 (09:27→13:23)
[2022-08-05] MEDS: FERROUS SULFATE 325 MG TABLET PO SCH (09:35)
[2022-08-05] MEDS: carvediloL 25 MG TABLET PO SCH (09:35)
[2022-08-05] MEDS: FOLIC ACID 1 MG TABLET PO SCH (09:35)
[2022-08-05] MEDS: predniSONE 20 MG TABLET PO SCH (09:35)
[2022-08-05] MEDS: amLODIPine 10 MG TABLET PO SCH (09:35)
[2022-08-05] MEDS: FUROSEMIDE 40 MG/4 ML VIAL IV SCH (09:36)
[2022-08-05] MEDS: DOCUSATE SODIUM 100 MG CAPSULE PO SCH (09:36)
[2022-08-05] MEDS: lisinopriL 20 MG TABLET PO SCH (09:36)
[2022-08-05] MEDS: CHOLECALCIFEROL 5,000 UNIT TABLET PO SCH (09:36)
[2022-08-05] MEDS: POLYETHYLENE GLYCOL POWDER 17 GM PACK PO SCH (09:37)
[2022-08-05 12:05] VITALS: BP 138/98
== END 2022-08-05 15:05 | DRG 194 ==
LOC: N.ED 08:55 → N.EDINP 13:06 → SUATTDRO 13:06 → N.5E 18:25 → N.CC 07-21 12:09 → N.5E 07-24 17:16
PROVIDERS: ADMIT Family Medicine; ATTEND Internal Medicine